=== PATIENT | female | born 1950 | race Caucasian/White ===

== ENCOUNTER 2017-08-22 23:37 | Inpatient (IN) | payer MEDICARE, MEDICAID ==
[~2017-08-22] VITALS: Ht 167.6 cm; Wt 72.7 kg
[~2017-08-22 23:37] MED LIST: ATOR20TA66 PO; BACL10TA PO; INSU100V9 SUBCUT; LOSA1TAB36 PO; OMEP20CA10 PO; OXYB5TAB11 PO
[2017-08-23] MEDS ORDERED: normal saline 1000ML IV soln IVB ONE
[2017-08-23 00:58] LABS: BASOPHILS % (AUTO) 0.4 % (0-1); EOSINOPHILS % (AUTO) 0.3 % (0-6); HEMATOCRIT 28.5 % (35.0-45.0); HEMOGLOBIN 9.8 g/dl (12.0-16.0); LYMPHOCYTES # (AUTO) 1.9 X10'3 (1.1-4.8); LYMPHOCYTES % (AUTO) 14.9 % (21-51); MEAN CORPUSCULAR HEMOGLOBIN 30.5 PG (27.0-31.0); MEAN CORPUSCULAR HGB CONC 34.4 % (33.0-36.5); MEAN CORPUSCULAR VOLUME 88.6 FL (78-98); MEAN PLATELET VOLUME 8.9 FL (7.4-10.4); MONOCYTES % (AUTO) 8.3 % (2-12); NEUTROPHILS # (AUTO) 9.5 X10'3 (1.8-7.7); NEUTROPHILS % (AUTO) 76.1 % (42-75); PLATELET COUNT 164 X10'3 (140-440); RED BLOOD COUNT 3.22 X10'6 (4.20-5.60); RED CELL DISTRIBUTION WIDTH 12.8 % (11.5-14.5); WHITE BLOOD COUNT 12.4 X10'3 (4.5-11.0)
[2017-08-23 01:12] LABS: ALANINE AMINOTRANSFERASE 15 U/L (12-78); ALBUMIN 3.1 G/DL (3.4-5.0); ALBUMIN/GLOBULIN RATIO 0.9 (1.1-1.5); ALKALINE PHOSPHATASE 75 IU/L (46-116); ANION GAP 12 (8-16); ASPARTATE AMINO TRANSFERASE 21 U/L (10-37); BILIRUBIN,TOTAL 0.4 MG/DL (0.1-1.0); CALCIUM 8.7 MG/DL (8.5-10.1); CHLORIDE 117 MMOL/L (99-107); CREATININE 3.45 MG/DL (0.40-0.90); GLUCOSE 152 MG/DL (70-104); POTASSIUM 3.5 MMOL/L (3.5-5.1); SODIUM 152 MMOL/L (135-145); TOTAL CARBON DIOXIDE 23.1 MMOL/L (24-32); TOTAL PROTEIN 6.5 G/DL (6.4-8.2); eGFR 13 ML/MIN
[2017-08-23] MEDS ORDERED: magnesium hydroxide 30ml (MOM) UD suspension PO PRN (01:15)
[2017-08-23] MEDS ORDERED: potassium Cl 20 mEq SR tablet PO PRN (01:15)
[2017-08-23] MEDS ORDERED: magnesium 2GM in 50ml NS 50 ML IV PRN (01:15)
[2017-08-23] MEDS ORDERED: magnesium 4gm in 100ml NS 100 ML IV PRN (01:15)
[2017-08-23] MEDS ORDERED: ipratropium/albuterol 3ml nebule NEB PRN (01:15)
[2017-08-23] MEDS ORDERED: ondansetron/PF 4mg/2ml inj IV PRN (01:15)
[2017-08-23] MEDS ORDERED: acetaminophen 325mg tablet PO PRN (01:15)
[2017-08-23] MEDS ORDERED: potassium Cl 40MEQ/NS 500ml 500 ML IV PRN ×2 (01:15)
[2017-08-23 01:21] LABS: BLOOD UREA NITROGEN 65 MG/DL (7-18); BUN/CREATININE RATIO 18.8 (6.6-38.0)
[2017-08-23] MEDS ORDERED: MESSAGE TO PHARMACY PO ONE (01:25)
[2017-08-23] MEDS ORDERED: dextrose 50%-water 50ml dispensing syringe IV PRN ×2 (01:25)
[2017-08-23] MEDS ORDERED: dextrose ORAL solution 15 GM/59 ML bottle PO PRN ×2 (01:25)
[2017-08-23] MEDS ORDERED: glucagon, human recombinant 1mg kit SUBCUT PRN (01:25)
[2017-08-23 01:42] LABS: CHOL/HDL RATIO 3.5 (0.00-4.99); CHOLESTEROL 156 MG/DL (0-200); HDL CHOLESTEROL 44 MG/DL (35-60); LDL CHOLESTEROL 87 MG/DL (50-100); TRIGLYCERIDES 118 MG/DL (20-135)
[2017-08-23 01:47] LABS: CLARITY,URINE SLIGHTLY CLOUDY (Clear); COLOR,URINE YELLOW (Yellow); GLUCOSE, URINE 100 mg/dl (Neg); KETONES,URINE NEGATIVE (Neg); LEUKOCYTE ESTERASE ,URINE TRACE (Neg); NITRITES, URINE POSITIVE (Neg); OCCULT BLOOD,URINE LARGE (Neg); PROTEIN,URINE >=300 mg/dl (Neg); UROBILINOGEN,URINE 0.2 E.U/dL (0.2-1.0)
[2017-08-23 01:48] LABS: UA COLLECTION TYPE FOLEY CATH
[2017-08-23 01:49] LABS: HEMOGLOBIN A1C 6.7 % (4.5-6.2)
[2017-08-23 02:01] LABS: BACTERIA,URINE 2+ /HPF (Neg); SQUAMOUS EPITHELIAL CELL,UR FEW /LPF (FEW); WBC,URINE 20-30 /HPF (0-4)
[2017-08-23 03:00] VITALS: BP 136/96
[2017-08-23] MEDS ORDERED: LINA5TAB4 (03:07)
[2017-08-23] MEDS ORDERED: CHOL2000 (03:07)
[2017-08-23] MEDS ORDERED: SIMV20TA5 PO (03:07)
[2017-08-23] MEDS ORDERED: DILT180C53 PO (03:07)
[2017-08-23] MEDS ORDERED: [UNRECOGNIZED DRUG - CODE] (03:07)
[2017-08-23] MEDS ORDERED: BACL10TA2 (03:07)
[2017-08-23] MEDS ORDERED: ASPI-1130 (03:07)
[2017-08-23] MEDS ORDERED: IRBE300T19 (03:07)
[2017-08-23] MEDS ORDERED: NICO-630 (03:07)
[2017-08-23] MEDS ORDERED: IRBE150T27 PO (03:07)
[2017-08-23] MEDS ORDERED: ONETOUCH (03:07)
[2017-08-23] MEDS ORDERED: INSU100I31 (03:07)
[2017-08-23] MEDS ORDERED: CHLO25TA3 (03:07)
[2017-08-23] MEDS: normal saline 1000ml 1,000 ML IV SCH ×3 (03:19→21:11)
[2017-08-23] MEDS: CefTRIAXone/D5W-Rocephin 1gm 50 ML IV SCH ×2 (03:19→21:00)
[2017-08-23 06:00] VITALS: BP 174/73
[2017-08-23] MEDS: K and/or MAG REPLACEMENT MC SCH (07:12)
[2017-08-23 08:17] LABS: ANION GAP 13 (8-16); BLOOD UREA NITROGEN 59 MG/DL (7-18); CALCIUM 8.8 MG/DL (8.5-10.1); CHLORIDE 114 MMOL/L (99-107); CREATININE 3.28 MG/DL (0.40-0.90); GLUCOSE 202 MG/DL (70-104); POTASSIUM 3.5 MMOL/L (3.5-5.1); SODIUM 149 MMOL/L (135-145); TOTAL CARBON DIOXIDE 22.1 MMOL/L (24-32); eGFR 14 ML/MIN
[2017-08-23 08:18] LABS: ALANINE AMINOTRANSFERASE 18 U/L (12-78); ALBUMIN 3.2 G/DL (3.4-5.0); ALBUMIN/GLOBULIN RATIO 0.9 (1.1-1.5); ALKALINE PHOSPHATASE 80 IU/L (46-116); ASPARTATE AMINO TRANSFERASE 25 U/L (10-37); BILIRUBIN,TOTAL 0.3 MG/DL (0.1-1.0); TOTAL PROTEIN 6.9 G/DL (6.4-8.2)
[2017-08-23] MEDS: lactobacillus rhamnosus 10,000 MMU CELLS/CAPSULE PO SCH ×2 (08:32→20:48)
[2017-08-23] MEDS: nicotine 21mg patch - 24 hr TD SCH (08:34)
[2017-08-23 11:00] VITALS: BP 138/74
[2017-08-23] MEDS: insulin Lispro (HumaLOG) vial - multi-dose SQ SCH ×2 (14:25→19:06)
[2017-08-23 20:00] VITALS: BP 145/68
[2017-08-23] MEDS: mag hydrox/Alum hydrox/simeth 30ml oral suspension PO PRN (21:33)
[2017-08-23] MEDS: insulin glargine (Lantus) pen - multi-dose SQ SCH (21:33)
[2017-08-24] VITALS: BP 168/64
[2017-08-24] MEDS: normal saline 1000ml 1,000 ML IV SCH ×2 (05:36→14:49)
[2017-08-24 06:32] LABS: ALANINE AMINOTRANSFERASE 20 U/L (12-78); ALBUMIN 2.8 G/DL (3.4-5.0); ALBUMIN/GLOBULIN RATIO 0.8 (1.1-1.5); ALKALINE PHOSPHATASE 83 IU/L (46-116); ANION GAP 12 (8-16); ASPARTATE AMINO TRANSFERASE 24 U/L (10-37); BILIRUBIN,TOTAL 0.3 MG/DL (0.1-1.0); BLOOD UREA NITROGEN 56 MG/DL (7-18); BUN/CREATININE RATIO 17.8 (6.6-38.0); CALCIUM 7.9 MG/DL (8.5-10.1); CHLORIDE 111 MMOL/L (99-107); CREATININE 3.15 MG/DL (0.40-0.90); GLUCOSE 138 MG/DL (70-104); MAGNESIUM 1.6 MG/DL (1.5-2.4); POTASSIUM 3.4 MMOL/L (3.5-5.1); SODIUM 145 MMOL/L (135-145); TOTAL CARBON DIOXIDE 21.6 MMOL/L (24-32); TOTAL PROTEIN 6.2 G/DL (6.4-8.2); eGFR 15 ML/MIN
[2017-08-24 06:58] LABS: BASOPHILS % (AUTO) 0.3 % (0-1); EOSINOPHILS # (AUTO) 0.7 X10'3 (0-0.9); EOSINOPHILS % (AUTO) 6.4 % (0-6); HEMATOCRIT 27.8 % (35.0-45.0); HEMOGLOBIN 9.7 g/dl (12.0-16.0); LYMPHOCYTES # (AUTO) 2.3 X10'3 (1.1-4.8); LYMPHOCYTES % (AUTO) 20.3 % (21-51); MEAN CORPUSCULAR HEMOGLOBIN 31.1 PG (27.0-31.0); MEAN CORPUSCULAR HGB CONC 34.9 % (33.0-36.5); MEAN CORPUSCULAR VOLUME 89.1 FL (78-98); MEAN PLATELET VOLUME 9.6 FL (7.4-10.4); MONOCYTES # (AUTO) 0.9 X10'3 (0-0.9); MONOCYTES % (AUTO) 7.7 % (2-12); NEUTROPHILS # (AUTO) 7.4 X10'3 (1.8-7.7); NEUTROPHILS % (AUTO) 65.3 % (42-75); PLATELET COUNT 166 X10'3 (140-440); RED BLOOD COUNT 3.12 X10'6 (4.20-5.60); WHITE BLOOD COUNT 11.3 X10'3 (4.5-11.0)
[2017-08-24 07:00] VITALS: BP 142/59
[2017-08-24] MEDS: K and/or MAG REPLACEMENT MC SCH (08:00)
[2017-08-24] MEDS: lactobacillus rhamnosus 10,000 MMU CELLS/CAPSULE PO SCH ×2 (08:21→20:00)
[2017-08-24] MEDS: potassium Cl 20 mEq SR tablet PO PRN ×3 (08:22→17:39)
[2017-08-24] MEDS: nicotine 21mg patch - 24 hr TD SCH (08:24)
[2017-08-24] MEDS: insulin Lispro (HumaLOG) vial - multi-dose SQ SCH ×2 (09:37→14:51)
[2017-08-24 11:54] VITALS: BP 169/77
[2017-08-24] MEDS ORDERED: chlorthalidone 25mg tablet PO ONE (12:10)
[2017-08-24] MEDS ORDERED: diltiazem CD 180mg cap (once-daily) PO SCH (14:00)
[2017-08-24] MEDS: losartan 50mg tablet PO SCH (14:57)
[2017-08-24 15:24] VITALS: BP 188/83
[2017-08-24] MEDS ORDERED: hydrALAZINE 20mg/ml inj. IV ONE (15:25)
[2017-08-24] MEDS ORDERED: hydrALAZINE 20mg/ml inj. IV PRN (15:25)
[2017-08-24] MEDS: mag hydrox/Alum hydrox/simeth 30ml oral suspension PO PRN (15:57)
[2017-08-24 17:16] VITALS: BP 153/70
[2017-08-24] MEDS: sodium bicarbonate (8.4%) inj. 50 MEQ in sodium chloride 0.45% 1,000 ML IV SCH (18:01)
[2017-08-24 19:44] LABS: TOTAL PROTEIN,URINE RANDOM 168.9 MG/DL
[2017-08-24 20:00] VITALS: BP 115/63
[2017-08-24] MEDS: atorvastatin 10mg tablet PO SCH (21:40)
[2017-08-24] MEDS: heparin, porcine 5000 units/ml vial SQ SCH (21:40)
[2017-08-24] MEDS: CefTRIAXone/D5W-Rocephin 1gm 50 ML IV SCH (21:41)
[2017-08-24] MEDS: insulin glargine (Lantus) pen - multi-dose SQ SCH (21:44)
[2017-08-25] VITALS (9 sets, daily range): BP systolic 156–190; BP diastolic 58–77
[2017-08-25] MEDS: sodium bicarbonate (8.4%) inj. 50 MEQ in sodium chloride 0.45% 1,000 ML IV SCH ×5 (05:19→20:23)
[2017-08-25 06:03] LABS: BASOPHILS % (AUTO) 0.3 % (0-1); EOSINOPHILS % (AUTO) 10.2 % (0-6); HEMATOCRIT 28.1 % (35.0-45.0); HEMOGLOBIN 9.6 g/dl (12.0-16.0); LYMPHOCYTES # (AUTO) 1.7 X10'3 (1.1-4.8); LYMPHOCYTES % (AUTO) 18.1 % (21-51); MEAN CORPUSCULAR HEMOGLOBIN 30.6 PG (27.0-31.0); MEAN PLATELET VOLUME 9.5 FL (7.4-10.4); MONOCYTES # (AUTO) 0.7 X10'3 (0-0.9); MONOCYTES % (AUTO) 7.4 % (2-12); NEUTROPHILS # (AUTO) 6.2 X10'3 (1.8-7.7); PLATELET COUNT 163 X10'3 (140-440); RED BLOOD COUNT 3.12 X10'6 (4.20-5.60); RED CELL DISTRIBUTION WIDTH 13.5 % (11.5-14.5); WHITE BLOOD COUNT 9.6 X10'3 (4.5-11.0)
[2017-08-25 06:45] LABS: ALANINE AMINOTRANSFERASE 21 U/L (12-78); ALBUMIN 2.7 G/DL (3.4-5.0); ALBUMIN/GLOBULIN RATIO 0.8 (1.1-1.5); ALKALINE PHOSPHATASE 73 IU/L (46-116); ANION GAP 11 (8-16); ASPARTATE AMINO TRANSFERASE 23 U/L (10-37); BILIRUBIN,TOTAL 0.3 MG/DL (0.1-1.0); BLOOD UREA NITROGEN 50 MG/DL (7-18); BUN/CREATININE RATIO 18.4 (6.6-38.0); CHLORIDE 112 MMOL/L (99-107); CREATININE 2.72 MG/DL (0.40-0.90); GLUCOSE 114 MG/DL (70-104); MAGNESIUM 1.8 MG/DL (1.5-2.4); POTASSIUM 4.4 MMOL/L (3.5-5.1); SODIUM 145 MMOL/L (135-145); TOTAL CARBON DIOXIDE 21.6 MMOL/L (24-32); eGFR 17 ML/MIN
[2017-08-25] MEDS: K and/or MAG REPLACEMENT MC SCH (08:00)
[2017-08-25] MEDS ORDERED: diltiazem CD 180mg cap (once-daily) PO SCH (08:00)
[2017-08-25] MEDS: insulin Lispro (HumaLOG) vial - multi-dose SQ SCH ×4 (09:01→21:33)
[2017-08-25] MEDS: losartan 50mg tablet PO SCH (09:05)
[2017-08-25] MEDS: diltiazem CD 120mg capsule (once-daily) PO SCH (09:05)
[2017-08-25] MEDS: pantoprazole 40mg Tablet.DR PO SCH (09:05)
[2017-08-25] MEDS: nicotine 21mg patch - 24 hr TD SCH (09:06)
[2017-08-25] MEDS: chlorthalidone 25mg tablet PO SCH (09:06)
[2017-08-25] MEDS: lactobacillus rhamnosus 10,000 MMU CELLS/CAPSULE PO SCH ×2 (09:06→19:57)
[2017-08-25] MEDS: aspirin 81mg tablet.DR PO SCH (09:06)
[2017-08-25] MEDS: heparin, porcine 5000 units/ml vial SQ SCH ×2 (09:07→19:57)
[2017-08-25] MEDS: carvedilol 6.25mg tablet PO SCH (19:57)
[2017-08-25] MEDS: insulin glargine (Lantus) pen - multi-dose SQ SCH (21:34)
[2017-08-25] MEDS: CefTRIAXone/D5W-Rocephin 1gm 50 ML IV SCH (21:35)
[2017-08-25] MEDS: atorvastatin 10mg tablet PO SCH (21:35)
[2017-08-26] MEDS ORDERED: quetiapine 100mg tablet PO SCH ×2 (02:00→18:00)
[2017-08-26] MEDS: QUEtiapine 25mg tablet PO SCH ×3 (02:45→18:59)
[2017-08-26 05:58] LABS: BASOPHILS % (AUTO) 0.3 % (0-1); EOSINOPHILS # (AUTO) 0.8 X10'3 (0-0.9); EOSINOPHILS % (AUTO) 10.5 % (0-6); HEMATOCRIT 23.8 % (35.0-45.0); HEMOGLOBIN 8.3 g/dl (12.0-16.0); LYMPHOCYTES # (AUTO) 1.9 X10'3 (1.1-4.8); LYMPHOCYTES % (AUTO) 24.4 % (21-51); MEAN CORPUSCULAR HEMOGLOBIN 30.7 PG (27.0-31.0); MEAN CORPUSCULAR HGB CONC 34.7 % (33.0-36.5); MEAN CORPUSCULAR VOLUME 88.3 FL (78-98); MEAN PLATELET VOLUME 8.8 FL (7.4-10.4); MONOCYTES # (AUTO) 0.6 X10'3 (0-0.9); MONOCYTES % (AUTO) 7.7 % (2-12); NEUTROPHILS # (AUTO) 4.6 X10'3 (1.8-7.7); NEUTROPHILS % (AUTO) 57.1 % (42-75); PLATELET COUNT 127 X10'3 (140-440); RED BLOOD COUNT 2.69 X10'6 (4.20-5.60); RED CELL DISTRIBUTION WIDTH 13.6 % (11.5-14.5)
[2017-08-26 06:35] LABS: ALANINE AMINOTRANSFERASE 18 U/L (12-78); ALBUMIN 2.3 G/DL (3.4-5.0); ALBUMIN/GLOBULIN RATIO 0.8 (1.1-1.5); ALKALINE PHOSPHATASE 64 IU/L (46-116); ANION GAP 8 (8-16); ASPARTATE AMINO TRANSFERASE 18 U/L (10-37); BILIRUBIN,TOTAL 0.3 MG/DL (0.1-1.0); BLOOD UREA NITROGEN 48 MG/DL (7-18); BUN/CREATININE RATIO 17.5 (6.6-38.0); CALCIUM 8.2 MG/DL (8.5-10.1); CHLORIDE 113 MMOL/L (99-107); CREATININE 2.75 MG/DL (0.40-0.90); GLUCOSE 117 MG/DL (70-104); MAGNESIUM 1.9 MG/DL (1.5-2.4); POTASSIUM 4.4 MMOL/L (3.5-5.1); SODIUM 146 MMOL/L (135-145); TOTAL CARBON DIOXIDE 24.8 MMOL/L (24-32); TOTAL PROTEIN 5.3 G/DL (6.4-8.2); eGFR 17 ML/MIN
[2017-08-26 07:17] VITALS: BP 147/59
[2017-08-26] MEDS: K and/or MAG REPLACEMENT MC SCH (08:00)
[2017-08-26 08:50] LABS: HIV ANTIBODY 1&2 RAPID NON-REACTIVE (Neg)
[2017-08-26] MEDS: diltiazem CD 120mg capsule (once-daily) PO SCH (09:46)
[2017-08-26] MEDS: carvedilol 6.25mg tablet PO SCH ×2 (09:47→20:27)
[2017-08-26] MEDS: pantoprazole 40mg Tablet.DR PO SCH (09:47)
[2017-08-26] MEDS: losartan 50mg tablet PO SCH (09:47)
[2017-08-26] MEDS: lactobacillus rhamnosus 10,000 MMU CELLS/CAPSULE PO SCH ×2 (09:47→20:27)
[2017-08-26] MEDS: chlorthalidone 25mg tablet PO SCH (09:47)
[2017-08-26] MEDS: aspirin 81mg tablet.DR PO SCH (09:48)
[2017-08-26] MEDS: nicotine 21mg patch - 24 hr TD SCH (09:48)
[2017-08-26] MEDS: calcium carbonate 500mg chew tablet PO SCH ×3 (09:48→17:17)
[2017-08-26] MEDS: heparin, porcine 5000 units/ml vial SQ SCH ×2 (09:49→20:28)
[2017-08-26] MEDS: sodium bicarbonate (8.4%) inj. 50 MEQ in sodium chloride 0.45% 1,000 ML IV SCH (09:51)
[2017-08-26] MEDS: insulin Lispro (HumaLOG) vial - multi-dose SQ SCH ×2 (10:10→14:17)
[2017-08-26 11:30] VITALS: BP 139/94
[2017-08-26] MEDS: sodium chloride 0.45% 1,000 ML IV SCH (17:08)
[2017-08-26 20:00] VITALS: BP 123/76
[2017-08-26] MEDS: atorvastatin 10mg tablet PO SCH (20:28)
[2017-08-26] MEDS: CefTRIAXone/D5W-Rocephin 1gm 50 ML IV SCH (20:29)
[2017-08-26] MEDS: insulin glargine (Lantus) pen - multi-dose SQ SCH (22:01)
[2017-08-27] VITALS: BP 128/71
[2017-08-27] MEDS: sodium chloride 0.45% 1,000 ML IV SCH ×2 (05:29→17:22)
[2017-08-27 06:17] LABS: BASOPHILS % (AUTO) 0.1 % (0-1); EOSINOPHILS # (AUTO) 0.9 X10'3 (0-0.9); EOSINOPHILS % (AUTO) 11.3 % (0-6); HEMATOCRIT 23.6 % (35.0-45.0); LYMPHOCYTES # (AUTO) 1.4 X10'3 (1.1-4.8); LYMPHOCYTES % (AUTO) 18.5 % (21-51); MEAN CORPUSCULAR HEMOGLOBIN 30.5 PG (27.0-31.0); MEAN CORPUSCULAR HGB CONC 33.9 % (33.0-36.5); MEAN PLATELET VOLUME 9.6 FL (7.4-10.4); MONOCYTES # (AUTO) 0.7 X10'3 (0-0.9); MONOCYTES % (AUTO) 8.8 % (2-12); NEUTROPHILS # (AUTO) 4.7 X10'3 (1.8-7.7); NEUTROPHILS % (AUTO) 61.3 % (42-75); PLATELET COUNT 128 X10'3 (140-440); RED BLOOD COUNT 2.62 X10'6 (4.20-5.60); RED CELL DISTRIBUTION WIDTH 13.6 % (11.5-14.5); WHITE BLOOD COUNT 7.6 X10'3 (4.5-11.0)
[2017-08-27 06:53] LABS: ALANINE AMINOTRANSFERASE 22 U/L (12-78); ALBUMIN 2.2 G/DL (3.4-5.0); ALBUMIN/GLOBULIN RATIO 0.7 (1.1-1.5); ALKALINE PHOSPHATASE 67 IU/L (46-116); ANION GAP 9 (8-16); ASPARTATE AMINO TRANSFERASE 20 U/L (10-37); BILIRUBIN,TOTAL 0.2 MG/DL (0.1-1.0); BLOOD UREA NITROGEN 47 MG/DL (7-18); BUN/CREATININE RATIO 15.7 (6.6-38.0); CHLORIDE 111 MMOL/L (99-107); GLUCOSE 107 MG/DL (70-104); MAGNESIUM 1.8 MG/DL (1.5-2.4); POTASSIUM 4.5 MMOL/L (3.5-5.1); SODIUM 145 MMOL/L (135-145); TOTAL CARBON DIOXIDE 24.9 MMOL/L (24-32); TOTAL PROTEIN 5.2 G/DL (6.4-8.2); eGFR 16 ML/MIN
[2017-08-27 07:21] VITALS: BP 144/58
[2017-08-27] MEDS: K and/or MAG REPLACEMENT MC SCH (08:00)
[2017-08-27 08:20] LABS: RPR Non Reactive (Non Reactive)
[2017-08-27] MEDS: pantoprazole 40mg Tablet.DR PO SCH (09:19)
[2017-08-27] MEDS: carvedilol 6.25mg tablet PO SCH ×2 (09:19→20:23)
[2017-08-27] MEDS: diltiazem CD 120mg capsule (once-daily) PO SCH (09:20)
[2017-08-27] MEDS: aspirin 81mg tablet.DR PO SCH (09:20)
[2017-08-27] MEDS: chlorthalidone 25mg tablet PO SCH (09:21)
[2017-08-27] MEDS: calcium carbonate 500mg chew tablet PO SCH ×3 (09:21→17:22)
[2017-08-27] MEDS: lactobacillus rhamnosus 10,000 MMU CELLS/CAPSULE PO SCH ×2 (09:21→20:23)
[2017-08-27] MEDS: losartan 50mg tablet PO SCH (09:21)
[2017-08-27] MEDS: insulin Lispro (HumaLOG) vial - multi-dose SQ SCH (09:26)
[2017-08-27] MEDS: nicotine 21mg patch - 24 hr TD SCH (09:33)
[2017-08-27] MEDS: heparin, porcine 5000 units/ml vial SQ SCH ×2 (09:34→20:24)
[2017-08-27 11:00] VITALS: BP 127/49
[2017-08-27 13:17] LABS: HEPATITIS C ANTIBODY <0.1 s/co ratio (0.0-0.9)
[2017-08-27] MEDS: QUEtiapine 25mg tablet PO SCH (17:22)
[2017-08-27 19:00] VITALS: BP 156/73
[2017-08-27] MEDS: atorvastatin 10mg tablet PO SCH (20:23)
[2017-08-27] MEDS: CefTRIAXone/D5W-Rocephin 1gm 50 ML IV SCH (20:24)
[2017-08-27] MEDS: insulin glargine (Lantus) pen - multi-dose SQ SCH (21:44)
[2017-08-27 23:00] VITALS: BP 160/66
[2017-08-28] MEDS: sodium chloride 0.45% 1,000 ML IV SCH ×2 (06:03→19:57)
[2017-08-28 06:04] LABS: BASOPHILS % (AUTO) 0.1 % (0-1); EOSINOPHILS # (AUTO) 0.8 X10'3 (0-0.9); HEMATOCRIT 26.5 % (35.0-45.0); LYMPHOCYTES # (AUTO) 1.6 X10'3 (1.1-4.8); LYMPHOCYTES % (AUTO) 20.1 % (21-51); MEAN CORPUSCULAR HEMOGLOBIN 30.6 PG (27.0-31.0); MEAN PLATELET VOLUME 9.6 FL (7.4-10.4); MONOCYTES # (AUTO) 0.6 X10'3 (0-0.9); MONOCYTES % (AUTO) 7.4 % (2-12); NEUTROPHILS # (AUTO) 4.8 X10'3 (1.8-7.7); NEUTROPHILS % (AUTO) 62.4 % (42-75); PLATELET COUNT 148 X10'3 (140-440); RED BLOOD COUNT 2.95 X10'6 (4.20-5.60); RED CELL DISTRIBUTION WIDTH 13.7 % (11.5-14.5); WHITE BLOOD COUNT 7.7 X10'3 (4.5-11.0)
[2017-08-28 06:35] LABS: ALANINE AMINOTRANSFERASE 28 U/L (12-78); ALBUMIN 2.5 G/DL (3.4-5.0); ALBUMIN/GLOBULIN RATIO 0.7 (1.1-1.5); ALKALINE PHOSPHATASE 76 IU/L (46-116); ANION GAP 11 (8-16); ASPARTATE AMINO TRANSFERASE 21 U/L (10-37); BILIRUBIN,TOTAL 0.3 MG/DL (0.1-1.0); BLOOD UREA NITROGEN 45 MG/DL (7-18); BUN/CREATININE RATIO 14.2 (6.6-38.0); CALCIUM 8.6 MG/DL (8.5-10.1); CHLORIDE 110 MMOL/L (99-107); CREATININE 3.17 MG/DL (0.40-0.90); GLUCOSE 128 MG/DL (70-104); POTASSIUM 4.2 MMOL/L (3.5-5.1); SODIUM 146 MMOL/L (135-145); TOTAL CARBON DIOXIDE 24.9 MMOL/L (24-32); eGFR 15 ML/MIN
[2017-08-28] MEDS: K and/or MAG REPLACEMENT MC SCH (08:00)
[2017-08-28] MEDS: calcium carbonate 500mg chew tablet PO SCH ×3 (08:05→17:30)
[2017-08-28] MEDS: lactobacillus rhamnosus 10,000 MMU CELLS/CAPSULE PO SCH ×2 (08:05→21:35)
[2017-08-28] MEDS: diltiazem CD 120mg capsule (once-daily) PO SCH (08:05)
[2017-08-28] MEDS: aspirin 81mg tablet.DR PO SCH (08:05)
[2017-08-28] MEDS: chlorthalidone 25mg tablet PO SCH (08:05)
[2017-08-28] MEDS: pantoprazole 40mg Tablet.DR PO SCH (08:05)
[2017-08-28] MEDS: carvedilol 6.25mg tablet PO SCH ×2 (08:05→21:35)
[2017-08-28] MEDS: losartan 50mg tablet PO SCH (08:06)
[2017-08-28] MEDS: nicotine 21mg patch - 24 hr TD SCH (08:06)
[2017-08-28] MEDS: heparin, porcine 5000 units/ml vial SQ SCH ×2 (08:08→21:39)
[2017-08-28 10:11] VITALS: BP 161/75
[2017-08-28 11:52] VITALS: BP 160/69
[2017-08-28] MEDS: insulin Lispro (HumaLOG) vial - multi-dose SQ SCH ×2 (13:50→20:00)
[2017-08-28] MEDS: QUEtiapine 25mg tablet PO SCH (19:56)
[2017-08-28 20:00] VITALS: BP 139/64
[2017-08-28] MEDS: atorvastatin 10mg tablet PO SCH (21:34)
[2017-08-28] MEDS: minoxidil 2.5mg tablet PO SCH (21:37)
[2017-08-28] MEDS: CefTRIAXone/D5W-Rocephin 1gm 50 ML IV SCH (21:38)
[2017-08-28] MEDS: insulin glargine (Lantus) pen - multi-dose SQ SCH (21:44)
[2017-08-29] VITALS: BP 133/59
[2017-08-29 06:18] LABS: MAGNESIUM 1.8 MG/DL (1.5-2.4)
[2017-08-29] MEDS: K and/or MAG REPLACEMENT MC SCH (07:50)
[2017-08-29] MEDS: nicotine 21mg patch - 24 hr TD SCH (07:53)
[2017-08-29] MEDS: pantoprazole 40mg Tablet.DR PO SCH (07:54)
[2017-08-29] MEDS: calcium carbonate 500mg chew tablet PO SCH ×3 (07:54→18:52)
[2017-08-29] MEDS: diltiazem CD 120mg capsule (once-daily) PO SCH (07:54)
[2017-08-29] MEDS: lactobacillus rhamnosus 10,000 MMU CELLS/CAPSULE PO SCH ×2 (07:54→21:16)
[2017-08-29] MEDS: aspirin 81mg tablet.DR PO SCH (07:54)
[2017-08-29] MEDS: carvedilol 6.25mg tablet PO SCH ×2 (07:54→21:18)
[2017-08-29] MEDS: heparin, porcine 5000 units/ml vial SQ SCH ×2 (07:55→21:16)
[2017-08-29] MEDS: insulin Lispro (HumaLOG) vial - multi-dose SQ SCH ×3 (08:04→18:56)
[2017-08-29] MEDS: minoxidil 2.5mg tablet PO SCH ×2 (09:08→21:17)
[2017-08-29 09:17] VITALS: BP 135/58
[2017-08-29 10:05] LABS: ALBUMIN 2.2 G/DL (3.4-5.0); ANION GAP 9 (8-16); BLOOD UREA NITROGEN 48 MG/DL (7-18); BUN/CREATININE RATIO 14.8 (6.6-38.0); CALCIUM 8.3 MG/DL (8.5-10.1); CHLORIDE 111 MMOL/L (99-107); CREATININE 3.24 MG/DL (0.40-0.90); GLUCOSE 114 MG/DL (70-104); POTASSIUM 4.6 MMOL/L (3.5-5.1); SODIUM 145 MMOL/L (135-145); eGFR 14 ML/MIN
[2017-08-29 11:43] VITALS: BP 116/63
[2017-08-29] MEDS: QUEtiapine 25mg tablet PO SCH (18:52)
[2017-08-29 19:00] VITALS: BP 141/52
[2017-08-29] MEDS: CefTRIAXone/D5W-Rocephin 1gm 50 ML IV SCH (21:16)
[2017-08-29] MEDS: atorvastatin 10mg tablet PO SCH (21:16)
[2017-08-29] MEDS: insulin glargine (Lantus) pen - multi-dose SQ SCH (21:22)
[2017-08-29 23:30] VITALS: BP 101/52
[2017-08-30 06:50] LABS: RHEUM FACTOR QUAL REFLEX TITER NEGATIVE (Neg)
[2017-08-30 06:54] LABS: ALBUMIN 2.3 G/DL (3.4-5.0); ANION GAP 9 (8-16); BLOOD UREA NITROGEN 53 MG/DL (7-18); BUN/CREATININE RATIO 15.9 (6.6-38.0); CALCIUM 8.6 MG/DL (8.5-10.1); CHLORIDE 110 MMOL/L (99-107); CREATININE 3.33 MG/DL (0.40-0.90); GLUCOSE 120 MG/DL (70-104); MAGNESIUM 1.9 MG/DL (1.5-2.4); POTASSIUM 4.3 MMOL/L (3.5-5.1); SODIUM 143 MMOL/L (135-145); TOTAL CARBON DIOXIDE 23.9 MMOL/L (24-32); eGFR 14 ML/MIN
[2017-08-30 07:00] VITALS: BP 127/52
[2017-08-30] MEDS: K and/or MAG REPLACEMENT MC SCH (08:00)
[2017-08-30] MEDS: minoxidil 2.5mg tablet PO SCH ×2 (08:49→22:26)
[2017-08-30] MEDS: calcium carbonate 500mg chew tablet PO SCH ×3 (08:49→17:01)
[2017-08-30] MEDS: lactobacillus rhamnosus 10,000 MMU CELLS/CAPSULE PO SCH ×2 (08:49→22:28)
[2017-08-30] MEDS: carvedilol 6.25mg tablet PO SCH ×2 (08:50→22:27)
[2017-08-30] MEDS: diltiazem CD 120mg capsule (once-daily) PO SCH (08:50)
[2017-08-30] MEDS: aspirin 81mg tablet.DR PO SCH (08:50)
[2017-08-30] MEDS: nicotine 21mg patch - 24 hr TD SCH (08:50)
[2017-08-30] MEDS: heparin, porcine 5000 units/ml vial SQ SCH ×2 (08:51→22:29)
[2017-08-30] MEDS: insulin Lispro (HumaLOG) vial - multi-dose SQ SCH ×2 (09:01→19:01)
[2017-08-30] MEDS: pantoprazole 40mg Tablet.DR PO SCH (09:05)
[2017-08-30 11:35] VITALS: BP 122/43
[2017-08-30] MEDS: QUEtiapine 25mg tablet PO SCH (17:01)
[2017-08-30 18:00] VITALS: BP 126/75
[2017-08-30] MEDS: atorvastatin 10mg tablet PO SCH (22:28)
[2017-08-30] MEDS: insulin glargine (Lantus) pen - multi-dose SQ SCH (22:34)
[2017-08-30 23:00] VITALS: BP 154/48
[2017-08-31 06:13] LABS: ALBUMIN 2.1 G/DL (3.4-5.0); ANION GAP 9 (8-16); BLOOD UREA NITROGEN 61 MG/DL (7-18); BUN/CREATININE RATIO 15.3 (6.6-38.0); CALCIUM 8.5 MG/DL (8.5-10.1); CHLORIDE 109 MMOL/L (99-107); CREATININE 3.99 MG/DL (0.40-0.90); GLUCOSE 140 MG/DL (70-104); POTASSIUM 4.9 MMOL/L (3.5-5.1); SODIUM 142 MMOL/L (135-145); TOTAL CARBON DIOXIDE 23.6 MMOL/L (24-32); eGFR 11 ML/MIN
[2017-08-31] MEDS: carvedilol 6.25mg tablet PO SCH ×2 (07:29→19:45)
[2017-08-31] MEDS: pantoprazole 40mg Tablet.DR PO SCH (07:29)
[2017-08-31] MEDS: diltiazem CD 120mg capsule (once-daily) PO SCH (07:29)
[2017-08-31] MEDS: minoxidil 2.5mg tablet PO SCH ×2 (07:30→22:11)
[2017-08-31] MEDS: aspirin 81mg tablet.DR PO SCH (07:30)
[2017-08-31] MEDS: lactobacillus rhamnosus 10,000 MMU CELLS/CAPSULE PO SCH ×2 (07:30→19:44)
[2017-08-31] MEDS: heparin, porcine 5000 units/ml vial SQ SCH ×2 (07:31→19:44)
[2017-08-31] MEDS: nicotine 21mg patch - 24 hr TD SCH (07:32)
[2017-08-31 08:00] VITALS: BP 141/50
[2017-08-31] MEDS: K and/or MAG REPLACEMENT MC SCH (08:00)
[2017-08-31 08:16] LABS: RPR Non Reactive (Non Reactive)
[2017-08-31] MEDS: calcium carbonate 500mg chew tablet PO SCH ×3 (08:30→17:40)
[2017-08-31] MEDS: insulin Lispro (HumaLOG) vial - multi-dose SQ SCH ×3 (09:53→19:43)
[2017-08-31 11:00] VITALS: BP 123/43
[2017-08-31 11:17] LABS: HBSAG SCREEN Negative (Negative); HEPATITIS C ANTIBODY <0.1 s/co ratio (0.0-0.9)
[2017-08-31 13:25] LABS: A/G RATIO 0.9 (0.7-1.7); ALBUMIN 2.1 g/dL (2.9-4.4); BETA GLOBULIN 0.6 g/dL (0.7-1.3); GAMMA GLOBULIN 0.7 g/dL (0.4-1.8); GLOBULIN, TOTAL 2.3 g/dL (2.2-3.9); M-SPIKE Not Observed g/dL (Not Observed); PROTEIN, TOTAL, SERUM 4.4 g/dL (6.0-8.5)
[2017-08-31 13:30] LABS: CLARITY,URINE CLEAR (Clear); COLOR,URINE YELLOW (Yellow); GLUCOSE, URINE NEGATIVE (Neg); KETONES,URINE NEGATIVE (Neg); LEUKOCYTE ESTERASE ,URINE NEGATIVE (Neg); NITRITES, URINE NEGATIVE (Neg); OCCULT BLOOD,URINE SMALL (Neg); PROTEIN,URINE 100 mg/dl (Neg); UROBILINOGEN,URINE 0.2 E.U/dL (0.2-1.0)
[2017-08-31 13:44] LABS: UA COLLECTION TYPE NON-SPECIFIED
[2017-08-31 13:51] LABS: BACTERIA,URINE 1+ /HPF (Neg); SQUAMOUS EPITHELIAL CELL,UR MANY /LPF (FEW); WBC,URINE 0-4 /HPF (0-4)
[2017-08-31 13:58] LABS: TOTAL PROTEIN,URINE RANDOM 82.6 MG/DL
[2017-08-31 14:18] LABS: UA EOSINOPHILS NO EOS /HPF
[2017-08-31 17:11] LABS: ANTINUCLEAR ANTIBODIES Negative (Negative)
[2017-08-31] MEDS: sucralfate 1gm/10ml UD suspension PO SCH ×2 (17:39→21:42)
[2017-08-31] MEDS: QUEtiapine 25mg tablet PO SCH (17:40)
[2017-08-31 19:30] VITALS: BP 119/39
[2017-08-31] MEDS: insulin glargine (Lantus) pen - multi-dose SQ SCH (21:49)
[2017-08-31 22:08] VITALS: BP 133/47
[2017-08-31] MEDS: atorvastatin 10mg tablet PO SCH (22:16)
[2017-09-01 06:46] LABS: ALBUMIN 2.2 G/DL (3.4-5.0); ANION GAP 10 (8-16); BLOOD UREA NITROGEN 67 MG/DL (7-18); BUN/CREATININE RATIO 16.6 (6.6-38.0); CALCIUM 8.4 MG/DL (8.5-10.1); CHLORIDE 108 MMOL/L (99-107); CREATININE 4.03 MG/DL (0.40-0.90); GLUCOSE 97 MG/DL (70-104); POTASSIUM 4.5 MMOL/L (3.5-5.1); SODIUM 141 MMOL/L (135-145); TOTAL CARBON DIOXIDE 22.8 MMOL/L (24-32); eGFR 11 ML/MIN
[2017-09-01 07:00] VITALS: BP 119/40
[2017-09-01] MEDS: sucralfate 1gm/10ml UD suspension PO SCH ×4 (07:00→21:00)
[2017-09-01 07:16] LABS: COMPLEMENT C3, SERUM 77 mg/dL (82-167); COMPLEMENT C4, SERUM 25 mg/dL (14-44)
[2017-09-01] MEDS: carvedilol 6.25mg tablet PO SCH ×2 (08:00→19:21)
[2017-09-01] MEDS: K and/or MAG REPLACEMENT MC SCH (08:00)
[2017-09-01] MEDS: calcium carbonate 500mg chew tablet PO SCH ×3 (08:16→17:30)
[2017-09-01] MEDS: diltiazem CD 120mg capsule (once-daily) PO SCH (08:16)
[2017-09-01] MEDS: aspirin 81mg tablet.DR PO SCH (08:16)
[2017-09-01] MEDS: lactobacillus rhamnosus 10,000 MMU CELLS/CAPSULE PO SCH ×2 (08:16→19:21)
[2017-09-01] MEDS: minoxidil 2.5mg tablet PO SCH ×2 (08:16→19:21)
[2017-09-01] MEDS: heparin, porcine 5000 units/ml vial SQ SCH ×2 (08:17→19:22)
[2017-09-01] MEDS: nicotine 21mg patch - 24 hr TD SCH (08:17)
[2017-09-01 11:21] VITALS: BP 119/43
[2017-09-01] MEDS: insulin Lispro (HumaLOG) vial - multi-dose SQ SCH ×2 (14:03→19:16)
[2017-09-01] MEDS: QUEtiapine 25mg tablet PO SCH (18:03)
[2017-09-01] MEDS: atorvastatin 10mg tablet PO SCH (19:22)
[2017-09-01 19:23] VITALS: BP 132/84
[2017-09-01] MEDS: insulin glargine (Lantus) pen - multi-dose SQ SCH (22:39)
[2017-09-02 00:30] VITALS: BP 115/54
[2017-09-02 05:36] LABS: ALBUMIN, UR 59.2 % (.); ALPHA-1-GLOBULIN,UR 2.8 % (.); ALPHA-2-GLOBULIN,UR 11.3 % (.); BETA GLOBULIN, UR 12.1 % (.); GAMMA GLOBULIN,UR 14.5 % (.); PROTEIN,TOTAL,URINE 79.3 mg/dL (Not Estab.)
[2017-09-02 06:29] LABS: ALBUMIN 2.3 G/DL (3.4-5.0); ANION GAP 10 (8-16); BLOOD UREA NITROGEN 63 MG/DL (7-18); BUN/CREATININE RATIO 15.4 (6.6-38.0); CALCIUM 8.5 MG/DL (8.5-10.1); CHLORIDE 109 MMOL/L (99-107); CREATININE 4.09 MG/DL (0.40-0.90); GLUCOSE 118 MG/DL (70-104); POTASSIUM 5.1 MMOL/L (3.5-5.1); SODIUM 142 MMOL/L (135-145); TOTAL CARBON DIOXIDE 22.7 MMOL/L (24-32); eGFR 11 ML/MIN
[2017-09-02] MEDS: sucralfate 1gm/10ml UD suspension PO SCH ×2 (07:00→11:00)
[2017-09-02] MEDS: K and/or MAG REPLACEMENT MC SCH (07:46)
[2017-09-02] MEDS: aspirin 81mg tablet.DR PO SCH (07:54)
[2017-09-02] MEDS: lactobacillus rhamnosus 10,000 MMU CELLS/CAPSULE PO SCH (07:54)
[2017-09-02] MEDS: calcium carbonate 500mg chew tablet PO SCH ×2 (07:54→12:30)
[2017-09-02] MEDS: diltiazem CD 120mg capsule (once-daily) PO SCH (07:55)
[2017-09-02] MEDS: minoxidil 2.5mg tablet PO SCH (07:55)
[2017-09-02] MEDS: heparin, porcine 5000 units/ml vial SQ SCH (07:55)
[2017-09-02] MEDS: nicotine 21mg patch - 24 hr TD SCH (07:55)
[2017-09-02] MEDS: carvedilol 6.25mg tablet PO SCH (07:59)
[2017-09-02 08:10] VITALS: BP 129/80
[2017-09-02] MEDS: insulin Lispro (HumaLOG) vial - multi-dose SQ SCH (08:58)
[2017-09-02] MEDS ORDERED: CARV6.253 PO (10:21)
[2017-09-02] MEDS ORDERED: MINO2.5T19 PO (10:21)
[2017-09-02] MEDS ORDERED: QUET25TA34 PO (10:21)
[2017-09-02 11:00] VITALS: BP 132/51
[2017-09-02 15:14] LABS: ATYPICAL PANCA <1:20 titer (Neg:<1:20); CYTOPLASMIC (C-ANCA) <1:20 titer (Neg:<1:20); PERINUCLEAR (P-ANCA) <1:20 titer (Neg:<1:20)
== END 2017-09-02 14:10 | disposition home or self-care (01) | DRG 682 ==
LOC: ER 23:38 → CANBEDREQ 08-23 00:19 → ED HOLD 08-23 01:11 → SUR 3N 08-23 02:45 → MED 3N 08-25 21:07
PROVIDERS: ADMIT Family Medicine; ATTEND Family Medicine
DX: N17.0 Acute kidney failure with tubular necrosis (principal); G93.41 Metabolic encephalopathy; E87.0 Hyperosmolality and hypernatremia; E11.21 Type 2 diabetes mellitus with diabetic nephropathy; E87.1 Hypo-osmolality and hyponatremia; N39.0 Urinary tract infection, site not specified; N18.4 Chronic kidney disease, stage 4 (severe); E86.0 Dehydration; I12.9 Hypertensive chronic kidney disease with stage 1 through stage 4 chronic kidney disease, or unspecified chronic kidney disease; B96.20 Unspecified Escherichia coli [E. coli] as the cause of diseases classified elsewhere; E11.22 Type 2 diabetes mellitus with diabetic chronic kidney disease; E78.00 Pure hypercholesterolemia, unspecified; E78.5 Hyperlipidemia, unspecified; F17.210 Nicotine dependence, cigarettes, uncomplicated; F22 Delusional disorders; Z88.2 Allergy status to sulfonamides; Z79.899 Other long term (current) drug therapy; Z79.4 Long term (current) use of insulin; Z87.440 Personal history of urinary (tract) infections; Z80.0 Family history of malignant neoplasm of digestive organs; Z80.3 Family history of malignant neoplasm of breast; Z80.41 Family history of malignant neoplasm of ovary; Z71.6 Tobacco abuse counseling
CPT/HCPCS: 36415; 70450; 74018; 76700; 80048; 80053; 80061; 81001; 82570; 82607; 82746; 82948; 83036; 83605; 83735; 84155; 84156; 84165; 84166; 84300; 84439; 84443; 85025; 85651; 86038; 86160; 86256; 86430; 86592; 86703; 86803; 87040; 87077; 87088; 87186; 87207; 87340; 92616; 93306; 94760; 96360; 97110; 97116; 97161; 97530; 99285; J0360; J0696; J1644; J1815; J7030

== ENCOUNTER 2018-06-07 07:07 | Inpatient (IN) | payer MEDICARE, MEDICAID ==
[~2018-06-07] VITALS: Ht 162.6 cm; Wt 61.2 kg
[~2018-06-07 07:07] MED LIST changes: +ASPI-1130; -ATOR20TA66 PO; -BACL10TA PO; +CARV6.253 PO; +DILT180C53 PO; -INSU100V9 SUBCUT; -LOSA1TAB36 PO; +MINO2.5T19 PO; +NICO-630; -OMEP20CA10 PO; -OXYB5TAB11 PO; +QUET25TA34 PO; +SIMV20TA5 PO; +[UNRECOGNIZED DRUG - CODE]
--- NOTE | 2018-06-07 08:02 | NUR ---
DR SAGASTUME AT BEDSIDE
[2018-06-07] MEDS ORDERED: normal saline 1000ML IV soln IVB ONE (08:10)
[2018-06-07 08:21] LABS: BASOPHILS % (AUTO) 0 % (0-1); EOSINOPHILS # (AUTO) 0.2 X10'3 (0-0.9); EOSINOPHILS % (AUTO) 1.3 % (0-6); HEMATOCRIT 26.2 % (35.0-45.0); HEMOGLOBIN 8.9 g/dl (12.0-16.0); LYMPHOCYTES # (AUTO) 0.9 X10'3 (1.1-4.8); LYMPHOCYTES % (AUTO) 4.9 % (21-51); MEAN CORPUSCULAR HGB CONC 34.1 % (33.0-36.5); MEAN CORPUSCULAR VOLUME 88.1 FL (78-98); MEAN PLATELET VOLUME 8.3 FL (7.4-10.4); MONOCYTES # (AUTO) 0.9 X10'3 (0-0.9); MONOCYTES % (AUTO) 4.8 % (2-12); NEUTROPHILS # (AUTO) 15.8 X10'3 (1.8-7.7); PLATELET COUNT 196 X10'3 (140-440); RED BLOOD COUNT 2.97 X10'6 (4.20-5.60); WHITE BLOOD COUNT 17.8 X10'3 (4.5-11.0)
[2018-06-07 08:33] LABS: PROTHROMBIN TIME 10.5 SECONDS (9.0-12.0)
[2018-06-07 08:34] LABS: ALANINE AMINOTRANSFERASE 15 U/L (12-78); ALBUMIN 2.7 G/DL (3.4-5.0); ALBUMIN/GLOBULIN RATIO 0.7 (1.1-1.5); ALKALINE PHOSPHATASE 82 IU/L (46-116); ANION GAP 15 (8-16); ASPARTATE AMINO TRANSFERASE 17 U/L (10-37); BILIRUBIN,TOTAL 0.4 MG/DL (0.1-1.0); BLOOD UREA NITROGEN 74 MG/DL (7-18); BUN/CREATININE RATIO 11.3 (6.6-38.0); CALCIUM 8.7 MG/DL (8.5-10.1); CHLORIDE 106 MMOL/L (99-107); CREATININE 6.53 MG/DL (0.40-0.90); ETHANOL < 0.010 GM/DL (0.0-0.010); GLUCOSE 207 MG/DL (70-104); LIPASE 104 U/L (73-393); SODIUM 137 MMOL/L (135-145); TOTAL CARBON DIOXIDE 15.8 MMOL/L (24-32); TOTAL PROTEIN 6.4 G/DL (6.4-8.2); eGFR 6 ML/MIN
[2018-06-07 08:35] LABS: POTASSIUM 6.5 MMOL/L (3.5-5.1)
[2018-06-07] MEDS ORDERED: sodium polystyrene sulfonate 15gm/60ml oral suspension PO ONE (08:55)
[2018-06-07] MEDS ORDERED: dextrose 50%-water 50ml dispensing syringe IV ONE (08:55)
[2018-06-07] MEDS ORDERED: insulin regular, human 10 units/0.1 ml syringe IV ONE (08:55)
[2018-06-07] MEDS ORDERED: albuterol 2.5 mg/0.5ml nebule NEB ONE (08:55)
[2018-06-07] MEDS ORDERED: albuterol 2.5 MG/3 ML nebule NEB ONE (09:00)
--- NOTE | 2018-06-07 10:00 | NUR ---
PT ASLEEP NAD
[2018-06-07 10:09] LABS: CLARITY,URINE CLOUDY (Clear); COLOR,URINE YELLOW (Yellow); GLUCOSE, URINE 500 mg/dl (Neg); KETONES,URINE TRACE mg/dl (Neg); LEUKOCYTE ESTERASE ,URINE NEGATIVE (Neg); NITRITES, URINE NEGATIVE (Neg); OCCULT BLOOD,URINE MODERATE (Neg); PROTEIN,URINE >=300 mg/dl (Neg); UROBILINOGEN,URINE 0.2 E.U/dL (0.2-1.0)
[2018-06-07 10:18] LABS: UA COLLECTION TYPE STRAIGHT CATH
[2018-06-07 10:19] LABS: BACTERIA,URINE 3+ /HPF (Neg); SQUAMOUS EPITHELIAL CELL,UR MANY /LPF (FEW)
--- NOTE | 2018-06-07 11:16 | NUR ---
PT PULLED OUT HER IV.
--- NOTE | 2018-06-07 11:36 | NUR ---
PT MOANING AND UNABLE TO VERBALIZE IF SHE HAS PAIN. PT KEEP SAYING "HELP ME MOM"
[2018-06-07] MEDS ORDERED: morphine 4 MG/ML inj SYRINge IV ONE (11:40)
[2018-06-07] MEDS: normal saline 1000ml 1,000 ML IV SCH ×2 (11:54→21:54)
[2018-06-07] MEDS ORDERED: mag hydrox/Alum hydrox/simeth 30ml oral suspension PO PRN (11:55)
[2018-06-07] MEDS ORDERED: acetaminophen 325mg tablet PO PRN ×2 (11:55)
[2018-06-07] MEDS ORDERED: magnesium hydroxide 30ml (MOM) UD suspension PO PRN (11:55)
[2018-06-07] MEDS ORDERED: HYDROcodone/acetaminophen 5mg/325mg tablet PO PRN (11:55)
[2018-06-07] MEDS ORDERED: ondansetron/PF 4mg/2ml inj IV PRN (11:55)
[2018-06-07] MEDS ORDERED: albuterol 2.5 MG/3 ML nebule NEB STA (12:03)
[2018-06-07] MEDS ORDERED: sodium bicarbonate (8.4%) 1 mEq/ml syringe IV ONE (12:05)
[2018-06-07] MEDS ORDERED: calcium gluconate inj. 1 GM in normal saline 100ml IV soln 90 ML IV ONE (12:05)
--- NOTE | 2018-06-07 12:22 | NUR ---
SPOKE WITH SON SUREKHA [phone] UPDATED PT CONDITION. PT IS SUPPOSED TO HAVE PROCRIT IM TOMORROW AT [facility]. NORMALLY A/0X3
[2018-06-07] MEDS ORDERED: normal saline 1000ml 1,000 ML IV ONE (12:25)
--- NOTE | 2018-06-07 13:00 | NUR ---
PT ASLEEP, INTERMITTENTLY MOANS "PLEASE MOMMA, PLEASE" FALLS ASLEEP AND DOESNT FINISH ASNWERING QUESTIONS
[2018-06-07] MEDS: CefTRIAXone/D5W-Rocephin 1gm 50 ML IV SCH (13:03)
[2018-06-07 13:05] LABS: CREATINE KINASE 215 U/L (26-192)
[2018-06-07 14:00] LABS: URINE AMPHETAMINE SCREEN NEGATIVE (Neg); URINE BARBITUATE SCREEN NEGATIVE (Neg); URINE BENZODIAZEPINES SCREEN NEGATIVE (Neg); URINE CANNABINOID SCREEN NEGATIVE (Neg); URINE COCAINE SCREEN NEGATIVE (Neg); URINE METHADONE SCREEN NEGATIVE (Neg); URINE OPIATE SCREEN POSITIVE (Neg); URINE PHENCYCLIDINE SCREEN NEGATIVE (Neg)
[2018-06-07] MEDS: DEXTROSE 5% IV SCH (14:06)
[2018-06-07] MEDS: SODIUM BICARBONATE IV SCH (14:06)
[2018-06-07] MEDS: 1/2 NORMAL SALINE IV SCH (14:06)
[2018-06-07] MEDS: HYDROmorphone inj. 0.5 MG/0.5 ML DISP.SYRIN IV PRN ×3 (14:10→21:50)
--- NOTE | 2018-06-07 14:10 | NUR ---
RT AT BEDSIDE FOR TX. PT MEDICATED FOR PAIN
--- NOTE | 2018-06-07 16:05 | NUR ---
PT ASLEEP NAD
--- NOTE | 2018-06-07 17:37 | NUR ---
ICE PLACED ON RIGHT SHOULDER PT EPOSITIONED IN BED. PT MEDICATED. RT SHOULDER IMMOBILIZER READJUSTED Addendum: 06/07/18 at 1738 by NOAH EDIT-PT REPOSITIONED IN BED
--- NOTE | 2018-06-07 17:47 | NUR ---
SPOKE WITH DR CAITLIN JUSTICE PT HTN AND HOME MEDS. AWAITING ORDERS
[2018-06-07] MEDS ORDERED: temazepam 15mg capsule PO PRN (21:00)
[2018-06-07] MEDS: heparin, porcine 5000 units/ml vial SQ SCH (21:49)
[2018-06-07] MEDS: hydrALAZINE 20mg/ml inj. IV PRN (22:01)
[2018-06-08] MEDS: SODIUM BICARBONATE IV SCH ×3 (01:05→17:25)
[2018-06-08] MEDS: 1/2 NORMAL SALINE IV SCH ×3 (01:05→17:25)
[2018-06-08] MEDS: DEXTROSE 5% IV SCH ×3 (01:05→17:25)
--- NOTE | 2018-06-08 03:13 | NUR ---
PATIENT PLACED ON HOSPITAL BED
[2018-06-08] MEDS: HYDROmorphone 1 mg/ml syringe IV PRN ×2 (04:49→19:35)
--- NOTE | 2018-06-08 06:30 | NUR ---
received report from ACCOUNTING SOFTWARE SPECIALIST await pt to bed 2784m
--- NOTE | 2018-06-08 07:14 | NUR ---
Arrival from ER Addendum: 06/08/18 at 0715 by Acacia Rodarte RN Amended: Links added.
[2018-06-08 07:44] LABS: BASOPHILS % (AUTO) 0 % (0-1); EOSINOPHILS # (AUTO) 0.3 X10'3 (0-0.9); HEMOGLOBIN 7.3 g/dl (12.0-16.0); LYMPHOCYTES # (AUTO) 0.9 X10'3 (1.1-4.8); LYMPHOCYTES % (AUTO) 6.8 % (21-51); MEAN CORPUSCULAR HEMOGLOBIN 29.7 PG (27.0-31.0); MEAN CORPUSCULAR HGB CONC 33.6 % (33.0-36.5); MEAN CORPUSCULAR VOLUME 88.4 FL (78-98); MEAN PLATELET VOLUME 7.7 FL (7.4-10.4); MONOCYTES # (AUTO) 0.8 X10'3 (0-0.9); MONOCYTES % (AUTO) 5.7 % (2-12); NEUTROPHILS # (AUTO) 11.8 X10'3 (1.8-7.7); NEUTROPHILS % (AUTO) 85.5 % (42-75); PLATELET COUNT 168 X10'3 (140-440); RED BLOOD COUNT 2.45 X10'6 (4.20-5.60); RED CELL DISTRIBUTION WIDTH 14.3 % (11.5-14.5); WHITE BLOOD COUNT 13.8 X10'3 (4.5-11.0)
[2018-06-08] MEDS: normal saline 1000ml 1,000 ML IV SCH ×2 (07:54→17:54)
[2018-06-08 07:56] LABS: HEMATOCRIT 21.7 % (35.0-45.0)
[2018-06-08 08:01] LABS: ALANINE AMINOTRANSFERASE 17 U/L (12-78); ALBUMIN 2.4 G/DL (3.4-5.0); ALBUMIN/GLOBULIN RATIO 0.7 (1.1-1.5); ALKALINE PHOSPHATASE 70 IU/L (46-116); ANION GAP 13 (8-16); ASPARTATE AMINO TRANSFERASE 18 U/L (10-37); BILIRUBIN,TOTAL 0.3 MG/DL (0.1-1.0); BLOOD UREA NITROGEN 75 MG/DL (7-18); BUN/CREATININE RATIO 11.4 (6.6-38.0); CALCIUM 8.2 MG/DL (8.5-10.1); CHLORIDE 108 MMOL/L (99-107); CREATININE 6.59 MG/DL (0.40-0.90); GLUCOSE 268 MG/DL (70-104); POTASSIUM 4.8 MMOL/L (3.5-5.1); SODIUM 145 MMOL/L (135-145); TOTAL CARBON DIOXIDE 23.8 MMOL/L (24-32); TOTAL PROTEIN 5.7 G/DL (6.4-8.2); eGFR 6 ML/MIN
--- NOTE | 2018-06-08 08:02 | NUR ---
Page to Dr Tor Carrillo u [phone] re anaid Pappas in [phone]- received critical hematocrit 21.7. Also glucose was 249, treat per protocol? Thanks!
--- NOTE | 2018-06-08 09:05 | NUR ---
PAGER ID: [phone] MESSAGE: [id number] JOVANNY PAYAN HAS ST ELEVATION IN V LEADS. TAMEKA U [id number] Addendum: 06/08/18 at 0917 by Tameka Garcia RN Amended: Links added.
[2018-06-08 09:34] LABS: TROPONIN I 0.05 NG/ML (0.0-0.05)
[2018-06-08] MEDS: HYDROcodone/acetaminophen 10/325mg tab PO PRN ×2 (09:56→13:53)
[2018-06-08] MEDS: heparin, porcine 5000 units/ml vial SQ SCH ×2 (09:57→20:00)
[2018-06-08 11:00] VITALS: BP 187/78
[2018-06-08] MEDS ORDERED: dextrose 50%-water 50ml dispensing syringe IV PRN (12:05)
[2018-06-08] MEDS ORDERED: dextrose ORAL solution 15 GM/59 ML bottle PO PRN ×2 (12:05)
[2018-06-08] MEDS ORDERED: MESSAGE TO PHARMACY PO ONE (12:05)
[2018-06-08] MEDS ORDERED: glucagon, human recombinant 1mg kit SUBCUT PRN (12:05)
[2018-06-08] MEDS: CefTRIAXone/D5W-Rocephin 1gm 50 ML IV SCH (13:23)
[2018-06-08 15:00] VITALS: BP 201/76
--- NOTE | 2018-06-08 15:32 | NUR ---
PAGER ID: [phone] MESSAGE: Lorena 8917 anaid Roche in [id number]- her bp is 205/85, HR 106, takes diltiazem 180 q d, carvedilol 12.5 bid Addendum: 06/08/18 at 1659 by Acacia Rodarte RN received orders to restart home BP meds.
[2018-06-08] MEDS: insulin Lispro (HumaLOG) vial - multi-dose SQ SCH ×2 (15:38→18:52)
--- NOTE | 2018-06-08 16:07 | NUR ---
started dm protocol at level 1 she is a level 1 Addendum: 06/08/18 at 1608 by Acacia Rodarte RN Amended: Links added. Addendum: 06/08/18 at 1659 by Acacia Rodarte RN pt is a type 1 diabetic
[2018-06-08] MEDS: diltiazem CD 180mg cap (once-daily) PO SCH (17:24)
[2018-06-08 18:00] VITALS: BP 193/55
[2018-06-08] MEDS: QUEtiapine 25mg tablet PO SCH (18:00)
--- NOTE | 2018-06-08 18:29 | NUR ---
Received report from Lorena CASTREJON pt is in bed on RA, pt did not want to eat dinner, tabs alarm on.
[2018-06-08] MEDS: hydrALAZINE 20mg/ml inj. IV PRN (19:31)
--- NOTE | 2018-06-08 19:53 | NUR ---
pt is having increased agitation, refused to take any PO meds for me. I gave pt hydralizine for B/P: of 193/55 and HR 110, pt was wincing in pain so I gave pt dilaudid for pain.
[2018-06-08] MEDS: minoxidil 2.5mg tablet PO SCH (20:00)
[2018-06-08] MEDS: carVEDilol 12.5mg tablet PO SCH (20:00)
[2018-06-08] MEDS: insulin glargine (Lantus) pen - multi-dose SQ SCH (21:07)
[2018-06-08] MEDS: LORazepam 2 mg/ml vial IV PRN (21:22)
[2018-06-08 23:00] VITALS: BP 169/64
[2018-06-09] VITALS (20 sets, daily range): BP systolic 122–194; BP diastolic 54–90
[2018-06-09] MEDS: HYDROmorphone 1 mg/ml syringe IV PRN ×4 (01:10→19:01)
[2018-06-09] MEDS ORDERED: diltiazem 5mg/ml 5ml inj. IV ONE ×2 (02:10→04:00)
[2018-06-09] MEDS: normal saline 1000ml 1,000 ML IV SCH ×3 (03:54→23:54)
--- NOTE | 2018-06-09 04:02 | NUR ---
Spoke with Dr. Barrett about pt's HR sustaining in the 130s-140s in A.fib, B/P: 132/69, Dr. Barrett ordered a 10mg Cardizem bolus, and then to put pt on a 5mg/hr cardizem drip. Reported off to Ursula CASTREJON.
[2018-06-09] MEDS: diltiazem-D5W 125mg/125ml 125 ML IV SCH (04:48)
[2018-06-09 05:25] LABS: BASOPHILS % (AUTO) 0 % (0-1); EOSINOPHILS # (AUTO) 0.3 X10'3 (0-0.9); EOSINOPHILS % (AUTO) 2.1 % (0-6); LYMPHOCYTES # (AUTO) 0.8 X10'3 (1.1-4.8); LYMPHOCYTES % (AUTO) 6.4 % (21-51); MEAN CORPUSCULAR HEMOGLOBIN 30.4 PG (27.0-31.0); MEAN CORPUSCULAR HGB CONC 34.2 % (33.0-36.5); MEAN CORPUSCULAR VOLUME 88.9 FL (78-98); MEAN PLATELET VOLUME 8.8 FL (7.4-10.4); MONOCYTES % (AUTO) 7.3 % (2-12); NEUTROPHILS # (AUTO) 10.9 X10'3 (1.8-7.7); NEUTROPHILS % (AUTO) 84.2 % (42-75); PLATELET COUNT 153 X10'3 (140-440); RED BLOOD COUNT 2.22 X10'6 (4.20-5.60); RED CELL DISTRIBUTION WIDTH 14.4 % (11.5-14.5)
[2018-06-09 05:45] LABS: ALANINE AMINOTRANSFERASE 17 U/L (12-78); ALBUMIN 2.2 G/DL (3.4-5.0); ALBUMIN/GLOBULIN RATIO 0.7 (1.1-1.5); ALKALINE PHOSPHATASE 70 IU/L (46-116); ANION GAP 12 (8-16); ASPARTATE AMINO TRANSFERASE 24 U/L (10-37); BILIRUBIN,TOTAL 0.3 MG/DL (0.1-1.0); BLOOD UREA NITROGEN 74 MG/DL (7-18); BUN/CREATININE RATIO 11.7 (6.6-38.0); CALCIUM 7.7 MG/DL (8.5-10.1); CHLORIDE 109 MMOL/L (99-107); CREATININE 6.32 MG/DL (0.40-0.90); GLUCOSE 174 MG/DL (70-104); POTASSIUM 3.4 MMOL/L (3.5-5.1); SODIUM 151 MMOL/L (135-145); TOTAL CARBON DIOXIDE 30.2 MMOL/L (24-32); TOTAL PROTEIN 5.5 G/DL (6.4-8.2); eGFR 7 ML/MIN
--- NOTE | 2018-06-09 06:26 | NUR ---
Problems reprioritized. Patient report given, questions answered & plan of care reviewed with Sis CASTREJON.
[2018-06-09 06:29] LABS: HEMOGLOBIN 6.8 g/dl (12.0-16.0)
[2018-06-09 06:30] LABS: HEMATOCRIT 19.7 % (35.0-45.0)
--- NOTE | 2018-06-09 06:37 | NUR ---
Patient in room PCU 3028. I have received report from Ursula CASTREJON and had the opportunity to ask questions and assume patient care. Will continue to monitor patient.
[2018-06-09] MEDS ORDERED: epoetin 20,000 units/ml inj IV ONE (08:00)
[2018-06-09] MEDS ORDERED: heparin 1,000 units/ml 10ml inj IV ONE (08:00)
[2018-06-09] MEDS ORDERED: non-formulary drug (Simvastatin* (Zocor*) 20 MG) PO SCH (08:00)
[2018-06-09] MEDS ORDERED: heparin 1,000 units/ml 10ml inj HE ONE ×2 (08:00)
[2018-06-09] MEDS ORDERED: heparin 1,000unit/ml 10ml vial 10 ML IV ONE (08:00)
[2018-06-09] MEDS ORDERED: albumin (Human) 5% 250ml 250 ML IV PRN (08:00)
[2018-06-09] MEDS: minoxidil 2.5mg tablet PO SCH ×2 (08:07→20:00)
[2018-06-09] MEDS: carVEDilol 12.5mg tablet PO SCH ×2 (08:07→20:00)
[2018-06-09] MEDS: atorvastatin 10mg tablet PO SCH (08:08)
[2018-06-09] MEDS: diltiazem CD 180mg cap (once-daily) PO SCH (08:08)
[2018-06-09] MEDS: heparin, porcine 5000 units/ml vial SQ SCH ×2 (08:08→22:11)
[2018-06-09] MEDS: CefTRIAXone/D5W-Rocephin 1gm 50 ML IV SCH (08:09)
[2018-06-09] MEDS: LORazepam 2 mg/ml vial IV PRN ×2 (08:21→17:11)
[2018-06-09] MEDS: insulin Lispro (HumaLOG) vial - multi-dose SQ SCH ×2 (08:29→12:26)
--- NOTE | 2018-06-09 08:46 | NUR ---
Page sent to Dr. Fernandez: PAGER ID: [phone] MESSAGE: [id number] Pappas: Critical H/H, it is 6.8/19.7. Thanks, Sis [phone]
[2018-06-09] MEDS ORDERED: acetaminophen 325mg tablet PO ONE (09:30)
[2018-06-09] MEDS ORDERED: pneumococcal 23-VAL P-sac vacc 25 mcg/0.5ml vial IMVAC ONE (10:00)
[2018-06-09] MEDS: 1/2 NORMAL SALINE IV SCH (10:45)
[2018-06-09] MEDS: SODIUM BICARBONATE IV SCH (10:45)
[2018-06-09] MEDS: DEXTROSE 5% IV SCH (10:45)
[2018-06-09] MEDS ORDERED: potassium Cl 40MEQ/NS 500ml 500 ML IV PRN ×2 (11:00)
[2018-06-09] MEDS ORDERED: potassium Cl 20 mEq SR tablet PO PRN (11:00)
[2018-06-09] MEDS ORDERED: magnesium Cl slow-release 64mg tablet PO PRN (11:00)
--- NOTE | 2018-06-09 11:21 | NUR ---
Consult: A1C 7.0. Pt admit w/ right displaced surgical neck fracture, patellar fracture. Per documentation pt is poor historian, confused, A/O x 1,agitated, combative and resistant to care. DM education not appropriate at this time. Pt PO intake is <25% with refusal of meal. No documented BM. Will continue to monitor for ONS Rec: 1. Continue with CHO control diet 2. Monitor for ONS 3. Monitor for bowel care 4. wt per rx Addendum: 06/09/18 at [address] Amended: Links added. Addendum: 06/09/18 at [address] I have reviewed and agree with note by Clinical Trials Manager. Aleena Johnson RD
[2018-06-09] MEDS: potassium Cl 20 mEq SR tablet PO PRN ×2 (12:18→17:11)
[2018-06-09] MEDS ORDERED: midazolam 2 mg/2 ml injection ONE (16:15)
[2018-06-09] MEDS ORDERED: heparin 1,000unit/ml 10ml vial 10 ML ONE (16:15)
[2018-06-09] MEDS ORDERED: fentaNYL/PF 50MCG/1 ML 2ML syringe ONE (16:15)
[2018-06-09] MEDS ORDERED: LIDOcaine 1%/PF 5ML 10 MG/ML VIAL ONE (16:15)
[2018-06-09] MEDS ORDERED: normal saline 1000ml 1,000 ML IV SCH (16:23)
[2018-06-09] MEDS ORDERED: midazolam 2 mg/2 ml injection IV PRN (16:25)
[2018-06-09] MEDS ORDERED: LIDOcaine 1%/PF 5ML 10 MG/ML VIAL SQ ONE (16:25)
[2018-06-09] MEDS ORDERED: fentaNYL/PF 50MCG/1 ML 2ML syringe IV PRN (16:25)
[2018-06-09] MEDS ORDERED: heparin 1,000 units/ml 10ml inj ICATH ONE (16:25)
[2018-06-09] MEDS: QUEtiapine 25mg tablet PO SCH (18:00)
--- NOTE | 2018-06-09 18:27 | NUR ---
Problems reprioritized. Patient report given, questions answered & plan of care reviewed with Tamela CASTREJON. Patient stable at transfer of care, blood infusing currently. VS stable
--- NOTE | 2018-06-09 18:45 | NUR ---
Patient in room PCU 3028. I have received report from Sis CASTREJON and had the opportunity to ask questions and assume patient care.
--- NOTE | 2018-06-09 19:00 | NUR ---
Blood inf to R FA site. HD RN at bedside to start dialysis. Pt restless, yelling, appears unable to rest. IV pain digital media representative f/mod. relief. Difficult to keep pt. positioned as she pulls at tele leads and removes O2, desats quickly. Answers simple questions approp. Attempted to admin PO water, pt. began to cough and spit out fluid, unable to swallow after sitting up high in bed. Seems interm confused, agitated, trying to come out of her bed. Staff member in room at all times. NC changed to mask, sleeping interm now.
--- NOTE | 2018-06-09 21:00 | NUR ---
Blood infusion completed. HD to be completed.
[2018-06-09] MEDS: insulin glargine (Lantus) pen - multi-dose SQ SCH (22:09)
[2018-06-10] VITALS (17 sets, daily range): BP systolic 123–186; BP diastolic 52–96
[2018-06-10] MEDS: HYDROmorphone 1 mg/ml syringe IV PRN ×5 (00:21→21:41)
--- NOTE | 2018-06-10 01:00 | NUR ---
Notified MD of pt's persistent high BP following HD. IV apresoline ord. and admin f/minimal effect. Wrist restraint ord. also obtained and applied. Pt. cont to be restless. Medicated f/pain f/minimal relief, sleeping interm. MD also informed of increase in temp., no ord given at this time. Pt cont to moan and cont. to be restless.
[2018-06-10] MEDS ORDERED: hydrALAZINE 20mg/ml inj. IV PRN (02:25)
[2018-06-10] MEDS: LORazepam 2 mg/ml vial IV PRN (03:27)
--- NOTE | 2018-06-10 04:00 | NUR ---
Ativan IV admin w/no effect.
[2018-06-10] MEDS: diltiazem-D5W 125mg/125ml 125 ML IV SCH (04:14)
--- NOTE | 2018-06-10 06:00 | NUR ---
Problems reprioritized. Patient report given, questions answered & plan of care reviewed with Sammi CASTREJON.
[2018-06-10] MEDS ORDERED: acetaminophen 325mg rectal suppository RC PRN (06:05)
--- NOTE | 2018-06-10 06:10 | NUR ---
PAGER ID: [phone] MESSAGE: [id number] pt Mian is unable to swallow currently. She has a temp of 100.7 axillary and only PO Tylenol. May I have a suppository please. Also, FYI her SBP has been in the 180s. NOC nurse gave IV Hydralazine - Sammi [phone]
[2018-06-10] MEDS ORDERED: ziprasidone IM 20mg inj **IM only IM ONE (07:45)
[2018-06-10] MEDS ORDERED: heparin 1,000 units/ml 10ml inj HE ONE ×2 (08:00)
[2018-06-10] MEDS: carVEDilol 12.5mg tablet PO SCH (08:00)
[2018-06-10] MEDS ORDERED: albumin (Human) 5% 250ml 250 ML IV PRN (08:00)
[2018-06-10] MEDS: minoxidil 2.5mg tablet PO SCH ×2 (08:00→20:00)
[2018-06-10] MEDS: loratadine 10mg tablet PO SCH (08:00)
[2018-06-10] MEDS ORDERED: epoetin 20,000 units/ml inj IV ONE (08:00)
[2018-06-10] MEDS: heparin, porcine 5000 units/ml vial SQ SCH (08:00)
[2018-06-10] MEDS: CefTRIAXone/D5W-Rocephin 1gm 50 ML IV SCH (08:40)
[2018-06-10] MEDS: insulin Lispro (HumaLOG) vial - multi-dose SQ SCH (09:26)
[2018-06-10] MEDS: 1/2 NORMAL SALINE IV SCH (09:26)
[2018-06-10] MEDS: SODIUM BICARBONATE IV SCH (09:26)
[2018-06-10] MEDS: DEXTROSE 5% IV SCH (09:26)
[2018-06-10 09:30] LABS: ALANINE AMINOTRANSFERASE 21 U/L (12-78); ALBUMIN 2.3 G/DL (3.4-5.0); ALBUMIN/GLOBULIN RATIO 0.6 (1.1-1.5); ALKALINE PHOSPHATASE 81 IU/L (46-116); ANION GAP 8 (8-16); ASPARTATE AMINO TRANSFERASE 27 U/L (10-37); BILIRUBIN,TOTAL 0.5 MG/DL (0.1-1.0); BLOOD UREA NITROGEN 31 MG/DL (7-18); BUN/CREATININE RATIO 8.6 (6.6-38.0); CALCIUM 7.9 MG/DL (8.5-10.1); CHLORIDE 105 MMOL/L (99-107); GLUCOSE 222 MG/DL (70-104); POTASSIUM 3.7 MMOL/L (3.5-5.1); SODIUM 146 MMOL/L (135-145); TOTAL CARBON DIOXIDE 33.2 MMOL/L (24-32); TOTAL PROTEIN 5.9 G/DL (6.4-8.2); eGFR 13 ML/MIN
[2018-06-10] MEDS: diltiazem CD 180mg cap (once-daily) PO SCH (09:38)
[2018-06-10] MEDS: atorvastatin 10mg tablet PO SCH (09:38)
[2018-06-10 09:40] LABS: BASOPHILS % (AUTO) 0 % (0-1); EOSINOPHILS # (AUTO) 0.2 X10'3 (0-0.9); EOSINOPHILS % (AUTO) 1.6 % (0-6); HEMATOCRIT 24.9 % (35.0-45.0); HEMOGLOBIN 8.4 g/dl (12.0-16.0); LYMPHOCYTES % (AUTO) 7.1 % (21-51); MEAN CORPUSCULAR HEMOGLOBIN 30.5 PG (27.0-31.0); MEAN CORPUSCULAR HGB CONC 33.8 % (33.0-36.5); MEAN CORPUSCULAR VOLUME 90.2 FL (78-98); MEAN PLATELET VOLUME 8.7 FL (7.4-10.4); MONOCYTES % (AUTO) 7.4 % (2-12); NEUTROPHILS # (AUTO) 11.4 X10'3 (1.8-7.7); NEUTROPHILS % (AUTO) 83.9 % (42-75); PLATELET COUNT 178 X10'3 (140-440); RED BLOOD COUNT 2.75 X10'6 (4.20-5.60); RED CELL DISTRIBUTION WIDTH 14.4 % (11.5-14.5); WHITE BLOOD COUNT 13.5 X10'3 (4.5-11.0)
[2018-06-10] MEDS: normal saline 1000ml 1,000 ML IV SCH (09:54)
--- NOTE | 2018-06-10 10:23 | NUR ---
PAGER ID: [phone] MESSAGE: [id number] pt Pappas both of her left arm IVs are infiltrated. She has a right humeral fracture and left patella fracture. May I put an IV in her left shoulder or right foot please? - Sammi [phone]
[2018-06-10] MEDS ORDERED: diltiazem 5mg/ml 5ml inj. IV ONE ×2 (11:10→14:25)
[2018-06-10] MEDS ORDERED: amiodarone 150mg/dext, iso-os 100 ML IV ONE (18:10)
--- NOTE | 2018-06-10 18:11 | NUR ---
Problems reprioritized. Patient report given, questions answered & plan of care reviewed with LUCÍA Augustine.
--- NOTE | 2018-06-10 18:42 | NUR ---
Patient in room PCU 3028. I have received report from Sammi CASTREJON and had the opportunity to ask questions and assume patient care.
[2018-06-10] MEDS: lactobacillus rhamnosus 10,000 MMU CELLS/CAPSULE PO SCH (20:00)
[2018-06-10 20:51] LABS: FERRITIN 141 NG/ML (8-252)
[2018-06-10 20:55] LABS: % IRON SATURATION 10 % (11-46); IRON 23 UG/DL (49-151); TOTAL IRON BINDING CAPACITY 222 UG/DL (259-388)
--- NOTE | 2018-06-10 21:45 | NUR ---
See graphic f/protocol VS at IV Amiodarone initiation.
[2018-06-10] MEDS: amiodarone/D5 360MG/200ML BAG 200 ML IV SCH (22:10)
[2018-06-10] MEDS: hydrALAZINE 20mg/ml inj. IV PRN (22:15)
[2018-06-10] MEDS: insulin glargine (Lantus) pen - multi-dose SQ SCH (23:43)
[2018-06-11] VITALS (22 sets, daily range): BP systolic 113–206; BP diastolic 40–91
[2018-06-11] MEDS: QUEtiapine 25mg tablet PO SCH (00:40)
[2018-06-11] MEDS: carVEDilol 12.5mg tablet PO SCH ×2 (00:41→08:00)
[2018-06-11] MEDS: normal saline 1000ml 1,000 ML IV SCH (00:41)
[2018-06-11] MEDS: heparin, porcine 5000 units/ml vial SQ SCH ×3 (00:45→20:26)
[2018-06-11] MEDS: HYDROmorphone 1 mg/ml syringe IV PRN ×2 (01:55→08:41)
[2018-06-11] MEDS: hydrALAZINE 20mg/ml inj. IV PRN ×2 (03:18→08:33)
[2018-06-11] MEDS: ziprasidone IM 20mg inj **IM only IM PRN ×2 (03:52→11:43)
[2018-06-11] MEDS: amiodarone/D5 360MG/200ML BAG 200 ML IV SCH ×4 (04:45→17:25)
[2018-06-11 05:33] LABS: BASOPHILS % (AUTO) 0.1 % (0-1); EOSINOPHILS # (AUTO) 0.5 X10'3 (0-0.9); EOSINOPHILS % (AUTO) 3.9 % (0-6); HEMATOCRIT 27.1 % (35.0-45.0); HEMOGLOBIN 9.2 g/dl (12.0-16.0); LYMPHOCYTES # (AUTO) 1.1 X10'3 (1.1-4.8); LYMPHOCYTES % (AUTO) 8.2 % (21-51); MEAN CORPUSCULAR HEMOGLOBIN 30.5 PG (27.0-31.0); MEAN CORPUSCULAR HGB CONC 33.8 % (33.0-36.5); MEAN CORPUSCULAR VOLUME 90.2 FL (78-98); MEAN PLATELET VOLUME 8.9 FL (7.4-10.4); MONOCYTES % (AUTO) 7.6 % (2-12); NEUTROPHILS # (AUTO) 10.8 X10'3 (1.8-7.7); NEUTROPHILS % (AUTO) 80.2 % (42-75); PLATELET COUNT 196 X10'3 (140-440); RED BLOOD COUNT 3.01 X10'6 (4.20-5.60); RED CELL DISTRIBUTION WIDTH 14.3 % (11.5-14.5); WHITE BLOOD COUNT 13.5 X10'3 (4.5-11.0)
[2018-06-11 05:59] LABS: ALANINE AMINOTRANSFERASE 21 U/L (12-78); ALBUMIN 2.4 G/DL (3.4-5.0); ALBUMIN/GLOBULIN RATIO 0.6 (1.1-1.5); ALKALINE PHOSPHATASE 89 IU/L (46-116); ANION GAP 13 (8-16); ASPARTATE AMINO TRANSFERASE 30 U/L (10-37); BILIRUBIN,TOTAL 0.7 MG/DL (0.1-1.0); BLOOD UREA NITROGEN 24 MG/DL (7-18); BUN/CREATININE RATIO 7.7 (6.6-38.0); CALCIUM 8.5 MG/DL (8.5-10.1); CHLORIDE 101 MMOL/L (99-107); CREATININE 3.11 MG/DL (0.40-0.90); GLUCOSE 159 MG/DL (70-104); POTASSIUM 3.2 MMOL/L (3.5-5.1); SODIUM 143 MMOL/L (135-145); TOTAL CARBON DIOXIDE 29.1 MMOL/L (24-32); TOTAL PROTEIN 6.2 G/DL (6.4-8.2); eGFR 15 ML/MIN
--- NOTE | 2018-06-11 06:43 | NUR ---
Problems reprioritized. Patient report given, questions answered & plan of care reviewed with Sammi CASTREJON.
--- NOTE | 2018-06-11 06:54 | NUR ---
Problems reprioritized. Patient report given, questions answered & plan of care reviewed with LUCÍA Rapp.
[2018-06-11] MEDS: minoxidil 2.5mg tablet PO SCH (08:00)
[2018-06-11] MEDS: atorvastatin 10mg tablet PO SCH (08:00)
[2018-06-11] MEDS: diltiazem CD 180mg cap (once-daily) PO SCH (08:00)
[2018-06-11] MEDS: loratadine 10mg tablet PO SCH (08:00)
[2018-06-11] MEDS: lactobacillus rhamnosus 10,000 MMU CELLS/CAPSULE PO SCH (08:00)
[2018-06-11] MEDS: insulin Lispro (HumaLOG) vial - multi-dose SQ SCH (08:50)
[2018-06-11] MEDS: CefTRIAXone/D5W-Rocephin 1gm 50 ML IV SCH (08:54)
[2018-06-11] MEDS ORDERED: sodium ferric gluc complex inj 25 MG in normal saline 50ml IV soln 48 ML IV ONE (09:30)
[2018-06-11] MEDS: HYDROmorphone inj. 0.5 MG/0.5 ML DISP.SYRIN IV PRN (14:42)
[2018-06-11] MEDS ORDERED: minoxidil 2.5mg tablet CORPAK ONE (14:46)
[2018-06-11] MEDS ORDERED: carVEDilol 12.5mg tablet CORPAK ONE (14:46)
[2018-06-11] MEDS ORDERED: acetaminophen 325mg tablet CORPAK PRN (14:50)
[2018-06-11] MEDS ORDERED: HYDROcodone/acetaminophen 10/325mg tab PO PRN (14:50)
[2018-06-11] MEDS ORDERED: dextrose ORAL solution 15 GM/59 ML bottle CORPAK PRN ×2 (15:05)
--- NOTE | 2018-06-11 16:29 | NUR ---
TF consult: Pt to have corpak placed r/t no PO meals and AOx1 w/ BSS in AM per MD. MD requests Nepro; goal rate below w/ water flush to be determined per MD since ESRD on HD. Currently unable to meet protein needs w/o overfeeding. Will monitor for feeding tolerance and BSS results. Rec: 1. NGTF via corpak using Nepro at 45ml/hr goal; to provide 1080ml fluid, 788ml free water, 1944kcals, and 87g protein. Initiate at 20ml/hr and advance 20ml Q8 to goal as tolerated 2. Consider change to Vital AF at 65ml/hr per MD 3. prealbumin Q /, dialy wts; water flush 200ml Q6 4. advance to CHO control diet per GRISTMILLER 5. Monitor for ONS 6. routine bowel care Addendum: 06/11/18 at [address] Amended: Links added.
[2018-06-11] MEDS: QUEtiapine 25mg tablet CORPAK SCH (17:18)
--- NOTE | 2018-06-11 18:00 | NUR ---
Patient in room PCU 3028. I have received report from LUCÍA Chapa and had the opportunity to ask questions and assume patient care.
--- NOTE | 2018-06-11 18:38 | NUR ---
Problems reprioritized. Patient report given, questions answered & plan of care reviewed with LUCÍA Roger.
--- NOTE | 2018-06-11 19:56 | NUR ---
CALLED PHARMACY ABOUT 30MG CARDIZEM SAYS DO NOT CRUSH, OKAYED TO CRUS[facility] 30MG CARDIZEM.
[2018-06-11] MEDS: minoxidil 2.5mg tablet CORPAK SCH (20:25)
[2018-06-11] MEDS: amiodarone 200mg tablet PO SCH (20:26)
[2018-06-11] MEDS: diltiazem 30mg tablet CORPAK SCH (20:26)
[2018-06-11] MEDS: lactobacillus rhamnosus 10,000 MMU CELLS/CAPSULE CORPAK SCH (20:26)
[2018-06-11] MEDS: ferrous sulfate 300mg/5ml UD oral liquid CORPAK SCH (20:49)
[2018-06-11] MEDS: carVEDilol 12.5mg tablet CORPAK SCH (20:49)
[2018-06-11] MEDS: insulin glargine (Lantus) pen - multi-dose SQ SCH (21:00)
--- NOTE | 2018-06-12 01:36 | NUR ---
PAGER ID: [phone] MESSAGE: [id number] Hetal Pappas- RALPH- pt on last maintenance dose of Amio gtt about 1/4 left of bag but sys bp 90's, stopped gtt for low sys. pt. Acacia [phone]
[2018-06-12] MEDS: diltiazem 30mg tablet CORPAK SCH ×4 (02:00→20:00)
[2018-06-12] MEDS: insulin regular, human vial - multi-dose SQ SCH ×2 (02:45→10:08)
[2018-06-12 03:00] VITALS: BP 118/40
[2018-06-12 05:14] LABS: BASOPHILS % (AUTO) 0 % (0-1); EOSINOPHILS # (AUTO) 0.8 X10'3 (0-0.9); EOSINOPHILS % (AUTO) 6.4 % (0-6); HEMOGLOBIN 9.2 g/dl (12.0-16.0); LYMPHOCYTES % (AUTO) 7.9 % (21-51); MEAN CORPUSCULAR HEMOGLOBIN 30.5 PG (27.0-31.0); MEAN CORPUSCULAR VOLUME 89.8 FL (78-98); MEAN PLATELET VOLUME 8.4 FL (7.4-10.4); MONOCYTES # (AUTO) 0.7 X10'3 (0-0.9); MONOCYTES % (AUTO) 5.4 % (2-12); NEUTROPHILS # (AUTO) 10.3 X10'3 (1.8-7.7); NEUTROPHILS % (AUTO) 80.3 % (42-75); PLATELET COUNT 230 X10'3 (140-440); RED BLOOD COUNT 3.01 X10'6 (4.20-5.60); WHITE BLOOD COUNT 12.9 X10'3 (4.5-11.0)
[2018-06-12 05:23] LABS: ALANINE AMINOTRANSFERASE 20 U/L (12-78); ALBUMIN 2.1 G/DL (3.4-5.0); ALBUMIN/GLOBULIN RATIO 0.6 (1.1-1.5); ALKALINE PHOSPHATASE 92 IU/L (46-116); ANION GAP 12 (8-16); ASPARTATE AMINO TRANSFERASE 24 U/L (10-37); BILIRUBIN,TOTAL 0.5 MG/DL (0.1-1.0); BLOOD UREA NITROGEN 48 MG/DL (7-18); BUN/CREATININE RATIO 10.1 (6.6-38.0); CALCIUM 8.5 MG/DL (8.5-10.1); CHLORIDE 101 MMOL/L (99-107); CREATININE 4.74 MG/DL (0.40-0.90); GLUCOSE 137 MG/DL (70-104); PREALBUMIN 12.6 MG/DL (19-36); SODIUM 141 MMOL/L (135-145); TOTAL CARBON DIOXIDE 28.5 MMOL/L (24-32); TOTAL PROTEIN 5.6 G/DL (6.4-8.2); eGFR 9 ML/MIN
[2018-06-12 05:34] LABS: POTASSIUM 2.8 MMOL/L (3.5-5.1)
--- NOTE | 2018-06-12 05:44 | NUR ---
notified May of critical k+ 2.8. will put in order for k+ replacement
[2018-06-12] MEDS ORDERED: potassium Cl oral solution 20 MEQ/15 ML PO ONE ×2 (05:45→08:05)
[2018-06-12 06:00] VITALS: BP 138/49
--- NOTE | 2018-06-12 06:28 | NUR ---
Problems reprioritized. Patient report given, questions answered & plan of care reviewed with LUCÍA Parham.
--- NOTE | 2018-06-12 07:00 | NUR ---
Patient in room PCU 3028. I have received report from LUCÍA ROUSSEAU and had the opportunity to ask questions and assume patient care.
[2018-06-12] MEDS: amiodarone 200mg tablet PO SCH ×2 (08:00→20:00)
[2018-06-12] MEDS: heparin, porcine 5000 units/ml vial SQ SCH ×2 (08:00→20:00)
[2018-06-12] MEDS: loratadine 10mg tablet CORPAK SCH (08:00)
[2018-06-12] MEDS: lactobacillus rhamnosus 10,000 MMU CELLS/CAPSULE CORPAK SCH ×2 (08:00→20:00)
[2018-06-12] MEDS: carVEDilol 12.5mg tablet CORPAK SCH (08:00)
[2018-06-12] MEDS: minoxidil 2.5mg tablet CORPAK SCH ×2 (08:00→20:00)
[2018-06-12] MEDS: atorvastatin 10mg tablet CORPAK SCH (08:00)
[2018-06-12] MEDS: ferrous sulfate 300mg/5ml UD oral liquid CORPAK SCH ×2 (08:00→20:00)
[2018-06-12] MEDS: CefTRIAXone/D5W-Rocephin 1gm 50 ML IV SCH (08:17)
[2018-06-12] MEDS: ziprasidone IM 20mg inj **IM only IM PRN ×2 (09:43→15:20)
--- NOTE | 2018-06-12 10:39 | NUR ---
has sitter and restraints. pulled out corpac. was to replace. dr. jarrett Addendum: 06/12/18 at 1041 by Karl Hernandez RN dr. lind said to leave out for now . pulled out tdc . hemostasis achieved. corbin jimenez. dr hay notified of all. will give the potassium iv and order new tdc per ir.
[2018-06-12] MEDS ORDERED: POTASSIUM CL IV ONE (10:45)
[2018-06-12] MEDS ORDERED: LIDOCAINE 1% IV ONE (10:45)
[2018-06-12] MEDS ORDERED: [UNRECOGNIZED DRUG - OTHER] IV ONE (10:45)
--- NOTE | 2018-06-12 10:46 | NUR ---
PAGED ANGIO: [id number] NEEDS NEW TDC PLACED TODAY. SHE PULLED IT OUT. MATTHEW [phone]. TY
[2018-06-12 11:00] VITALS: BP 126/46
[2018-06-12 12:41] LABS: ANION GAP 8 (8-16); BLOOD UREA NITROGEN 54 MG/DL (7-18); BUN/CREATININE RATIO 10.2 (6.6-38.0); CALCIUM 8.5 MG/DL (8.5-10.1); CHLORIDE 103 MMOL/L (99-107); GLUCOSE 204 MG/DL (70-104); POTASSIUM 3.8 MMOL/L (3.5-5.1); SODIUM 142 MMOL/L (135-145); TOTAL CARBON DIOXIDE 30.6 MMOL/L (24-32); eGFR 8 ML/MIN
--- NOTE | 2018-06-12 13:00 | NUR ---
DISC USSED Addendum: 06/12/18 at 1435 by Karl Hernandez RN DISCUSSED NO CORPAC/NO PO MEDS GIVEN TODAY R/T PT PULLED OUT CORPAC WITH DR. LOUISE AND DR. YOUNG. DOES HAVE DIET ORDER NOW, HAS NOT BEEN ALERT ENOUGH TO OFFER FOOD OR DRINK OR MEDS. POTASSIUM ADM IV FOR K+ 2.8.
[2018-06-12 15:00] VITALS: BP 140/48
--- NOTE | 2018-06-12 15:36 | NUR ---
unable to perform accucheck. pt combative and screaming with attempt.
[2018-06-12] MEDS: QUEtiapine 25mg tablet CORPAK SCH (18:00)
--- NOTE | 2018-06-12 18:14 | NUR ---
Problems reprioritized. Patient report given, questions answered & plan of care reviewed with devon kellogg.
--- NOTE | 2018-06-12 18:15 | NUR ---
INDUSTRIAL REHABILITATION CONSULTANTcardiopulmonary physical therapist: I have reviewed and agree with all interventions, assessments performed and documented by LUCÍA CORREA. Addendum: 06/12/18 at 1841 by Acacia Everett RN documented by LUCÍA Parham under my user name.
--- NOTE | 2018-06-12 18:40 | NUR ---
Problems reprioritized. Patient report given, questions answered & plan of care reviewed with LUCÍA ROUSSEAU. Addendum: 06/12/18 at 1841 by Acacia Everett RN documented by LUCÍA Parham under my user name.
--- NOTE | 2018-06-12 18:41 | NUR ---
SPEECH PATHOLOGISTreed maker: I have reviewed and agree with all interventions, assessments performed and documented by LUCÍA CORREA.
[2018-06-12 19:00] VITALS: BP 112/61
--- NOTE | 2018-06-12 19:28 | NUR ---
PAGER ID: [phone] MESSAGE: [id number] Hetal Pappas- pt in A.fib w RVRm rate 140's-160's. Had no cardiac meds today due to pulling out corpak. Pt asymptomatic, christal 131/60 Acacia, RN 6002
[2018-06-12] MEDS: amiodarone/D5 360MG/200ML BAG 200 ML IV SCH (20:37)
[2018-06-12] MEDS ORDERED: amiodarone 150mg/dext, iso-os 100 ML IV ONE (20:40)
[2018-06-12] MEDS: insulin glargine (Lantus) pen - multi-dose SQ SCH (21:00)
[2018-06-12 23:00] VITALS: BP 105/61
[2018-06-12] MEDS: LORazepam 2 mg/ml vial IV PRN (23:14)
--- NOTE | 2018-06-12 23:41 | NUR ---
corpak placed, marked at 60cm
[2018-06-13] VITALS (17 sets, daily range): BP systolic 109–145; BP diastolic 37–96
--- NOTE | 2018-06-13 00:21 | NUR ---
per May ok to feed in stomach
[2018-06-13] MEDS: amiodarone/D5 360MG/200ML BAG 200 ML IV SCH ×4 (01:12→17:08)
[2018-06-13] MEDS: carVEDilol 12.5mg tablet CORPAK SCH ×3 (01:14→20:14)
[2018-06-13] MEDS: diltiazem 30mg tablet CORPAK SCH ×4 (01:21→20:14)
[2018-06-13] MEDS: ziprasidone IM 20mg inj **IM only IM PRN ×2 (06:14→14:53)
--- NOTE | 2018-06-13 06:43 | NUR ---
Problems reprioritized. Patient report given, questions answered & plan of care reviewed with LUCÍA Parham.
--- NOTE | 2018-06-13 06:51 | NUR ---
Patient in room PCU 3028. I have received report from LUCÍA ROUSSEAU and had the opportunity to ask questions and assume patient care.
[2018-06-13] MEDS ORDERED: heparin 1,000 units/ml 10ml inj HE ONE ×2 (07:00)
[2018-06-13] MEDS ORDERED: epoetin 20,000 units/ml inj IV ONE (07:00)
[2018-06-13] MEDS ORDERED: albumin (Human) 5% 250ml 250 ML IV PRN (07:00)
[2018-06-13] MEDS: lactobacillus rhamnosus 10,000 MMU CELLS/CAPSULE CORPAK SCH ×2 (07:34→20:14)
[2018-06-13] MEDS: minoxidil 2.5mg tablet CORPAK SCH ×2 (07:34→20:13)
[2018-06-13] MEDS: loratadine 10mg tablet CORPAK SCH (07:34)
[2018-06-13] MEDS: atorvastatin 10mg tablet CORPAK SCH (07:34)
[2018-06-13] MEDS: ferrous sulfate 300mg/5ml UD oral liquid CORPAK SCH ×2 (07:34→20:00)
[2018-06-13] MEDS: heparin, porcine 5000 units/ml vial SQ SCH ×2 (07:34→20:14)
[2018-06-13] MEDS: CefTRIAXone/D5W-Rocephin 1gm 50 ML IV SCH (07:35)
[2018-06-13] MEDS: amiodarone 200mg tablet PO SCH ×2 (08:00→20:14)
[2018-06-13 08:17] LABS: HBSAG SCREEN Negative (Negative)
[2018-06-13] MEDS: insulin regular, human vial - multi-dose SQ SCH ×2 (09:13→12:42)
[2018-06-13 09:25] LABS: HEMATOCRIT 24.4 % (35.0-45.0); MEAN CORPUSCULAR HGB CONC 32.9 % (33.0-36.5); MEAN CORPUSCULAR VOLUME 91.1 FL (78-98); MEAN PLATELET VOLUME 8.2 FL (7.4-10.4); PLATELET COUNT 200 X10'3 (140-440); RED BLOOD COUNT 2.68 X10'6 (4.20-5.60); RED CELL DISTRIBUTION WIDTH 14.6 % (11.5-14.5); WHITE BLOOD COUNT 10.2 X10'3 (4.5-11.0)
--- NOTE | 2018-06-13 11:00 | NUR ---
ASKED DR. LOUISE TO PLEASE RENEW RESTRAIN ORDERS.
[2018-06-13] MEDS ORDERED: LIDOcaine 1%/PF 5ML 10 MG/ML VIAL SQ ONE (11:15)
[2018-06-13] MEDS ORDERED: heparin 1,000 units/ml 10ml inj ICATH ONE (11:15)
[2018-06-13] MEDS ORDERED: fentaNYL/PF 50MCG/1 ML 2ML syringe IV PRN (11:15)
[2018-06-13] MEDS ORDERED: midazolam 2 mg/2 ml injection IV PRN (11:15)
--- NOTE | 2018-06-13 11:20 | NUR ---
TF consult 06/13: TF consult already received 06/11 and recommendations already placed for continuous TF. D/w RN who states pt removed Corpak yesterday however it was able to be replaced and Nepro is currently running at 20 mL/hr working towards recommended goal rate of 45 mL/hr. Pt s/p BSS 06/12 with INDEPENDENT MARKETING CONSULTANT recs of mech soft diet with thin liquids and pt needs a feeder. Pt with mech soft diet with documented PO intake 0% however RN states pt ate almost all of dinner last PM with max assistance. RN also states pt to be combative and confused. Per MD progress notes pt pulled out TDC however will be replaced to pt can continue HD. LBM 06/12. Will continue to follow. TF consult 06/11: Pt to have corpak placed r/t no PO meals and AOx1 w/ BSS in Fay ALCOCER. MD requests Nepro; goal rate below w/ water flush to be determined per MD since ESRD on HD. Currently unable to meet protein needs w/o overfeeding. Will monitor for feeding tolerance and BSS results. Rec: 1. NGTF via corpak using Nepro at 45ml/hr goal; to provide 1080ml fluid, 788ml free water, 1944kcals, and 87g protein. Initiate at 20ml/hr and advance 20ml Q8 to goal as tolerated 2. Consider change to Vital AF at 65ml/hr per MD 3. prealbumin Q /, daily wts; water flush 200ml Q6 4. continue with mech soft thin liquid diet per INDEPENDENT MARKETING CONSULTANT; advance to CHO controlled as medically indicated 5. Monitor for ONS 6. routine bowel care Addendum: 06/13/18 at [address] Amended: Links added.
--- NOTE | 2018-06-13 11:23 | NUR ---
ANGIO IN TO TRANSPORT FOR TDC PLACEMENT, TUBE FEEDING STOPPED, CORPAC FLUSHED.
[2018-06-13] MEDS ORDERED: LIDOcaine 1%/PF 5ML 10 MG/ML VIAL ONE (11:36)
[2018-06-13] MEDS ORDERED: heparin 1,000unit/ml 10ml vial 10 ML ONE (11:46)
[2018-06-13] MEDS ORDERED: fentaNYL/PF 50MCG/1 ML 2ML syringe ONE (11:50)
--- NOTE | 2018-06-13 12:30 | NUR ---
RETURNED FROM ANGIO STATUS POST TDC PLACEMENT. TDC INTACT RIGHT CHEST, NO SX OF HEMATOMA OR HEMORRHAGE. VS STABLE.
[2018-06-13 16:20] LABS: BASOPHILS % (AUTO) 0 % (0-1); EOSINOPHILS # (AUTO) 0.8 X10'3 (0-0.9); HEMATOCRIT 25.6 % (35.0-45.0); HEMOGLOBIN 8.5 g/dl (12.0-16.0); LYMPHOCYTES # (AUTO) 0.9 X10'3 (1.1-4.8); LYMPHOCYTES % (AUTO) 7.4 % (21-51); MEAN CORPUSCULAR HEMOGLOBIN 30.2 PG (27.0-31.0); MEAN CORPUSCULAR HGB CONC 33.3 % (33.0-36.5); MEAN CORPUSCULAR VOLUME 90.7 FL (78-98); MEAN PLATELET VOLUME 8.3 FL (7.4-10.4); MONOCYTES # (AUTO) 1.1 X10'3 (0-0.9); MONOCYTES % (AUTO) 8.8 % (2-12); NEUTROPHILS # (AUTO) 9.2 X10'3 (1.8-7.7); NEUTROPHILS % (AUTO) 76.8 % (42-75); PLATELET COUNT 218 X10'3 (140-440); RED BLOOD COUNT 2.82 X10'6 (4.20-5.60); WHITE BLOOD COUNT 11.9 X10'3 (4.5-11.0)
[2018-06-13] MEDS: QUEtiapine 25mg tablet CORPAK SCH (17:48)
--- NOTE | 2018-06-13 17:59 | NUR ---
NEW HIRE motion picture commentator: I have reviewed and agree with all interventions, assessments performed and documented by LUCÍA CORREA.
--- NOTE | 2018-06-13 18:34 | NUR ---
Patient in room PCU 3028. I have received report from LUCÍA Parham and had the opportunity to ask questions and assume patient care.
--- NOTE | 2018-06-13 18:35 | NUR ---
Problems reprioritized. Patient report given, questions answered & plan of care reviewed with LUCÍA ROUSSEAU.
--- NOTE | 2018-06-13 19:47 | NUR ---
called May about amio PO and gtt, she would like gtt to stop in about and hour after po given.
--- NOTE | 2018-06-13 20:24 | NUR ---
advanced corpak to 70cm, advised by May to advance as it was placed in upper adbomen, ok to be in stomach as we are not bypassing stomach.
[2018-06-13] MEDS: insulin glargine (Lantus) pen - multi-dose SQ SCH (21:00)
--- NOTE | 2018-06-13 22:25 | NUR ---
stopped amio gtt
[2018-06-14] MEDS: diltiazem 30mg tablet CORPAK SCH ×4 (02:00→21:33)
[2018-06-14 03:00] VITALS: BP 134/48
[2018-06-14] MEDS: insulin regular, human vial - multi-dose SQ SCH ×4 (03:49→17:11)
[2018-06-14 05:09] LABS: BASOPHILS % (AUTO) 0.2 % (0-1); EOSINOPHILS # (AUTO) 0.7 X10'3 (0-0.9); HEMATOCRIT 26.3 % (35.0-45.0); HEMOGLOBIN 8.9 g/dl (12.0-16.0); LYMPHOCYTES # (AUTO) 0.9 X10'3 (1.1-4.8); MEAN CORPUSCULAR HEMOGLOBIN 30.4 PG (27.0-31.0); MEAN CORPUSCULAR HGB CONC 33.7 % (33.0-36.5); MEAN CORPUSCULAR VOLUME 90.1 FL (78-98); MONOCYTES # (AUTO) 1.2 X10'3 (0-0.9); MONOCYTES % (AUTO) 8.6 % (2-12); NEUTROPHILS # (AUTO) 10.8 X10'3 (1.8-7.7); NEUTROPHILS % (AUTO) 79.2 % (42-75); PLATELET COUNT 221 X10'3 (140-440); RED BLOOD COUNT 2.92 X10'6 (4.20-5.60); RED CELL DISTRIBUTION WIDTH 14.6 % (11.5-14.5); WHITE BLOOD COUNT 13.6 X10'3 (4.5-11.0)
[2018-06-14 05:37] LABS: ALANINE AMINOTRANSFERASE 22 U/L (12-78); ALBUMIN/GLOBULIN RATIO 0.5 (1.1-1.5); ALKALINE PHOSPHATASE 109 IU/L (46-116); ANION GAP 9 (8-16); ASPARTATE AMINO TRANSFERASE 23 U/L (10-37); BILIRUBIN,TOTAL 0.4 MG/DL (0.1-1.0); BLOOD UREA NITROGEN 30 MG/DL (7-18); BUN/CREATININE RATIO 8.3 (6.6-38.0); CALCIUM 8.2 MG/DL (8.5-10.1); CHLORIDE 100 MMOL/L (99-107); CREATININE 3.61 MG/DL (0.40-0.90); GLUCOSE 230 MG/DL (70-104); MAGNESIUM 1.9 MG/DL (1.5-2.4); PHOSPHORUS 2.2 MG/DL (2.3-4.5); POTASSIUM 4.9 MMOL/L (3.5-5.1); SODIUM 137 MMOL/L (135-145); TOTAL PROTEIN 5.8 G/DL (6.4-8.2); eGFR 12 ML/MIN
[2018-06-14 06:00] VITALS: BP 111/41
--- NOTE | 2018-06-14 06:28 | NUR ---
Patient in room PCU 3028. I have received report from Acacia and had the opportunity to ask questions and assume patient care.
[2018-06-14] MEDS: loratadine 10mg tablet CORPAK SCH (09:23)
[2018-06-14] MEDS: lactobacillus rhamnosus 10,000 MMU CELLS/CAPSULE CORPAK SCH ×2 (09:23→21:34)
[2018-06-14] MEDS: atorvastatin 10mg tablet CORPAK SCH (09:23)
[2018-06-14] MEDS: amiodarone 200mg tablet PO SCH ×2 (09:23→21:33)
[2018-06-14] MEDS: minoxidil 2.5mg tablet CORPAK SCH ×2 (09:23→21:33)
[2018-06-14] MEDS: heparin, porcine 5000 units/ml vial SQ SCH ×2 (09:24→21:34)
[2018-06-14] MEDS: carVEDilol 12.5mg tablet CORPAK SCH ×2 (09:24→21:34)
[2018-06-14] MEDS: ferrous sulfate 300mg/5ml UD oral liquid CORPAK SCH ×2 (09:29→21:34)
[2018-06-14] MEDS: ziprasidone IM 20mg inj **IM only IM PRN (09:29)
[2018-06-14] MEDS: LORazepam 2 mg/ml vial IV PRN (10:34)
--- NOTE | 2018-06-14 10:38 | NUR ---
PT HAVING HALLUCINATIONS AND YELLING OUT. SITTER AND PLATE FORMER TRYING TO COMFORT AND ORIENT PT. PT GIVEN GEODON IM AND ATIVAN IV AN HOUR LATER TO HELP CALM PT SO SHE CAN RELAX AND REST.
[2018-06-14 11:00] VITALS: BP 140/50
[2018-06-14 16:15] VITALS: BP 112/35
[2018-06-14] MEDS: QUEtiapine 25mg tablet CORPAK SCH (17:54)
[2018-06-14 18:00] VITALS: BP 112/88
--- NOTE | 2018-06-14 18:49 | NUR ---
Problems reprioritized. Patient report given, questions answered & plan of care reviewed with Sophie CASTREJON.
--- NOTE | 2018-06-14 18:53 | NUR ---
Patient in room PCU 3028. I have received report from LUCÍA Howard and had the opportunity to ask questions and assume patient care.
[2018-06-14] MEDS: insulin glargine (Lantus) pen - multi-dose SQ SCH (21:54)
[2018-06-14 23:00] VITALS: BP 111/39
[2018-06-15] MEDS: diltiazem 30mg tablet CORPAK SCH ×4 (01:13→20:00)
[2018-06-15] MEDS: ziprasidone IM 20mg inj **IM only IM PRN ×3 (01:13→16:39)
[2018-06-15 02:00] VITALS: BP 131/44
[2018-06-15] MEDS: insulin regular, human vial - multi-dose SQ SCH ×3 (02:45→21:23)
[2018-06-15 05:03] LABS: BASOPHILS % (AUTO) 0 % (0-1); EOSINOPHILS # (AUTO) 0.8 X10'3 (0-0.9); HEMATOCRIT 25.9 % (35.0-45.0); HEMOGLOBIN 8.6 g/dl (12.0-16.0); LYMPHOCYTES # (AUTO) 1.2 X10'3 (1.1-4.8); MEAN CORPUSCULAR HEMOGLOBIN 29.8 PG (27.0-31.0); MEAN CORPUSCULAR HGB CONC 33.1 g/dL (33.0-36.5); MEAN CORPUSCULAR VOLUME 90.1 FL (78-98); MEAN PLATELET VOLUME 9.3 FL (7.4-10.4); MONOCYTES # (AUTO) 1.2 X10'3 (0-0.9); MONOCYTES % (AUTO) 8.7 % (2-12); NEUTROPHILS # (AUTO) 10.1 X10'3 (1.8-7.7); NEUTROPHILS % (AUTO) 76.3 % (42-75); PLATELET COUNT 216 X10'3 (140-440); RED BLOOD COUNT 2.88 X10'6 (4.20-5.60); RED CELL DISTRIBUTION WIDTH 14.4 % (11.5-14.5); WHITE BLOOD COUNT 13.2 X10'3 (4.5-11.0)
[2018-06-15 05:21] LABS: ALANINE AMINOTRANSFERASE 20 U/L (12-78); ALBUMIN 1.9 G/DL (3.4-5.0); ALBUMIN/GLOBULIN RATIO 0.5 (1.1-1.5); ALKALINE PHOSPHATASE 110 IU/L (46-116); ANION GAP 9 (8-16); ASPARTATE AMINO TRANSFERASE 18 U/L (10-37); BILIRUBIN,TOTAL 0.4 MG/DL (0.1-1.0); BLOOD UREA NITROGEN 53 MG/DL (7-18); BUN/CREATININE RATIO 9.6 (6.6-38.0); CALCIUM 8.9 MG/DL (8.5-10.1); CHLORIDE 99 MMOL/L (99-107); GLUCOSE 185 MG/DL (70-104); MAGNESIUM 2.1 MG/DL (1.5-2.4); PHOSPHORUS 3.7 MG/DL (2.3-4.5); POTASSIUM 4.5 MMOL/L (3.5-5.1); SODIUM 137 MMOL/L (135-145); TOTAL CARBON DIOXIDE 28.6 MMOL/L (24-32); TOTAL PROTEIN 5.5 G/DL (6.4-8.2); eGFR 8 ML/MIN
--- NOTE | 2018-06-15 06:38 | NUR ---
Problems reprioritized. Patient report given, questions answered & plan of care reviewed with LUCÍA Howard.
--- NOTE | 2018-06-15 06:58 | NUR ---
Patient in room PCU 3028. I have received report from Sophie CASTREJON and had the opportunity to ask questions and assume patient care.
[2018-06-15 07:34] VITALS: BP 94/38
[2018-06-15] MEDS: lactobacillus rhamnosus 10,000 MMU CELLS/CAPSULE CORPAK SCH ×2 (07:44→21:30)
[2018-06-15] MEDS: minoxidil 2.5mg tablet CORPAK SCH ×2 (07:44→20:00)
[2018-06-15] MEDS: amiodarone 200mg tablet PO SCH ×2 (07:45→21:29)
[2018-06-15] MEDS: heparin, porcine 5000 units/ml vial SQ SCH ×2 (07:45→21:31)
[2018-06-15] MEDS: loratadine 10mg tablet CORPAK SCH (07:45)
[2018-06-15] MEDS: carVEDilol 12.5mg tablet CORPAK SCH ×2 (07:45→20:00)
[2018-06-15] MEDS: atorvastatin 10mg tablet CORPAK SCH (07:45)
[2018-06-15] MEDS ORDERED: albumin (Human) 5% 250ml 250 ML IV PRN (08:00)
[2018-06-15] MEDS ORDERED: epoetin 20,000 units/ml inj IV ONE (08:00)
[2018-06-15] MEDS ORDERED: heparin 1,000 units/ml 10ml inj IV ONE (08:00)
[2018-06-15] MEDS: ferrous sulfate 300mg/5ml UD oral liquid CORPAK SCH ×2 (08:00→21:30)
[2018-06-15] MEDS ORDERED: heparin 1,000 units/ml 10ml inj HE ONE ×2 (08:00)
[2018-06-15] MEDS ORDERED: heparin 1,000unit/ml 10ml vial 10 ML IV ONE (08:00)
[2018-06-15 11:00] VITALS: BP 94/36
--- NOTE | 2018-06-15 12:48 | NUR ---
senior pharmacy technician called with a low BP on pt. Pt getting Dialysis at this time. junior php developer is going to give pt back 300ml at completition of dialysis.
[2018-06-15 15:00] VITALS: BP 103/38
[2018-06-15] MEDS: QUEtiapine 25mg tablet CORPAK SCH (17:45)
--- NOTE | 2018-06-15 18:26 | NUR ---
Problems reprioritized. Patient report given, questions answered & plan of care reviewed with Lorenza CASTREJON.
--- NOTE | 2018-06-15 18:30 | NUR ---
Patient in room PCU 3028. I have received report from Lee CASTREJON and had the opportunity to ask questions and assume patient care. Pt is laying in bed. Just received ORTIZ Suárez per report. She is in one point restraint on right hand bc she has been pulling at her feeding tube, and ripped out her dialysis catheter despite having a sitter. Family son Jose Luis called for updates. I asked what pt like is at baseline. She apparently cares for her own mother as well as lives with her, and is independent. Son said the last time she had signs of psych issues it was on her last admit in august 2017 when she was septic with a bladder infection. "She was put on an antipsychotic that she continued taking at home that was tapered down as she was getting better." He could not remember the name of this med. He explained that he contacted [facility] to see if he could find help such as home health to help with his grandmother and his mother (the pt) once she is discharged. I also followed up with the son about how she injured her leg and arm. Per report, possible fall? Son said he just received a voicemail from her at 2am the day she "hurt herself" while she was at home. He could not track her down following that and eventually called [facility] to find out she was here. No visitors today per report. nitro worker's name is on white board.
[2018-06-15 19:00] VITALS: BP 92/36
[2018-06-15] MEDS: insulin glargine (Lantus) pen - multi-dose SQ SCH (21:25)
--- NOTE | 2018-06-15 22:00 | NUR ---
New tube feeding hung at this time. Nepro 1.8 gonzalo
[2018-06-15 23:00] VITALS: BP 128/37
[2018-06-16] VITALS (8 sets, daily range): BP systolic 83–136; BP diastolic 33–64
[2018-06-16] MEDS ORDERED: albumin 25% 50mL bottle 100 ML IV ONE (00:05)
--- NOTE | 2018-06-16 00:10 | NUR ---
Called Marlo Damian regarding low BPs. Pt had albumin 5% given today and had low MAPs on BPs during and after dialysis. MAPs have been in the 50s. Per Marlo he'd like "200 ml of 25% albumin" to be given. This concentration only comes in 50ml bottles. She will need 4 bottles total.
[2018-06-16] MEDS: albumin 25% 50mL bottle 100 ML IV SCH ×2 (00:34→01:56)
[2018-06-16] MEDS: diltiazem 30mg tablet CORPAK SCH ×4 (02:00→19:52)
[2018-06-16] MEDS: insulin regular, human vial - multi-dose SQ SCH ×4 (02:21→20:19)
[2018-06-16 05:42] LABS: BASOPHILS % (AUTO) 0 % (0-1); EOSINOPHILS # (AUTO) 0.4 X10'3 (0-0.9); HEMATOCRIT 24.2 % (35.0-45.0); HEMOGLOBIN 8.1 g/dl (12.0-16.0); LYMPHOCYTES # (AUTO) 1.1 X10'3 (1.1-4.8); LYMPHOCYTES % (AUTO) 5.6 % (21-51); MEAN CORPUSCULAR HGB CONC 33.4 g/dL (33.0-36.5); MEAN CORPUSCULAR VOLUME 89.8 FL (78-98); MEAN PLATELET VOLUME 9.2 FL (7.4-10.4); MONOCYTES # (AUTO) 1.5 X10'3 (0-0.9); MONOCYTES % (AUTO) 8.1 % (2-12); NEUTROPHILS # (AUTO) 16.1 X10'3 (1.8-7.7); NEUTROPHILS % (AUTO) 84.3 % (42-75); PLATELET COUNT 242 X10'3 (140-440); RED BLOOD COUNT 2.69 X10'6 (4.20-5.60); RED CELL DISTRIBUTION WIDTH 14.4 % (11.5-14.5); WHITE BLOOD COUNT 19.1 X10'3 (4.5-11.0)
[2018-06-16 06:05] LABS: ALANINE AMINOTRANSFERASE 20 U/L (12-78); ALBUMIN 3.1 G/DL (3.4-5.0); ALBUMIN/GLOBULIN RATIO 0.9 (1.1-1.5); ALKALINE PHOSPHATASE 114 IU/L (46-116); ANION GAP 9 (8-16); ASPARTATE AMINO TRANSFERASE 16 U/L (10-37); BILIRUBIN,TOTAL 0.5 MG/DL (0.1-1.0); BLOOD UREA NITROGEN 40 MG/DL (7-18); BUN/CREATININE RATIO 10.3 (6.6-38.0); CALCIUM 8.7 MG/DL (8.5-10.1); CHLORIDE 97 MMOL/L (99-107); CREATININE 3.89 MG/DL (0.40-0.90); GLUCOSE 199 MG/DL (70-104); MAGNESIUM 2.1 MG/DL (1.5-2.4); PHOSPHORUS 1.7 MG/DL (2.3-4.5); POTASSIUM 4.3 MMOL/L (3.5-5.1); SODIUM 136 MMOL/L (135-145); TOTAL CARBON DIOXIDE 29.7 MMOL/L (24-32); TOTAL PROTEIN 6.4 G/DL (6.4-8.2); eGFR 11 ML/MIN
--- NOTE | 2018-06-16 06:55 | NUR ---
Problems reprioritized. Patient report given, questions answered & plan of care reviewed with Letty CASTREJON.
[2018-06-16] MEDS: loratadine 10mg tablet CORPAK SCH ×2 (08:00→08:35)
[2018-06-16] MEDS: amiodarone 200mg tablet PO SCH ×2 (08:34→19:52)
[2018-06-16] MEDS: heparin, porcine 5000 units/ml vial SQ SCH ×2 (08:34→19:52)
[2018-06-16] MEDS: lactobacillus rhamnosus 10,000 MMU CELLS/CAPSULE CORPAK SCH ×2 (08:35→19:52)
[2018-06-16] MEDS: carVEDilol 12.5mg tablet CORPAK SCH ×2 (08:35→19:52)
[2018-06-16] MEDS: minoxidil 2.5mg tablet CORPAK SCH ×2 (08:35→19:52)
[2018-06-16] MEDS: atorvastatin 10mg tablet CORPAK SCH (08:36)
[2018-06-16] MEDS: ferrous sulfate 300mg/5ml UD oral liquid CORPAK SCH ×2 (08:55→20:21)
--- NOTE | 2018-06-16 15:13 | NUR ---
reassessment: Pt tolerating NGTF at goal. PO remains 0% mechanical soft meals. Pt currently hallucinating and pulled TDC while in restraints w/ mittens and sitter per MD. Patella surgery post-poned at this time per MD note. On carb-steady formula w/ GLU increased to 359 this AM; has been on hyperglycemia protocol and not on any steroids. AM GLU was 90 yesterday and received lantus last night in addition to 44 units insulin for correction this AM. LBM 06/13. RD d/w RN for Phos replacement per MD approval given 05/22 today; will continue to monitor. Rec: 1. NGTF via corpak using Nepro at 45ml/hr goal; to provide 1080ml fluid, 788ml free water, 1944kcals, and 87g protein. Initiate at 20ml/hr and advance 20ml Q8 to goal as tolerated 2. Consider change to Vital AF at 65ml/hr per MD 3. prealbumin Q /, daily wts; water flush 200ml Q6 4. continue with [facility] soft thin liquid diet per FERMENTING CELLARS SUPERVISOR; advance to CHO controlled as medically indicated 5. phos replacement per MD approval 6. routine bowel care Addendum: 06/16/18 at [address] Amended: Links added.
[2018-06-16] MEDS: QUEtiapine 25mg tablet CORPAK SCH (18:23)
--- NOTE | 2018-06-16 18:30 | NUR ---
Patient in room PCU 3028A. I have received report from LUCÍA Saenz and had the opportunity to ask questions and assume patient care.
--- NOTE | 2018-06-16 18:44 | NUR ---
Problems reprioritized. Patient report given, questions answered & plan of care reviewed with LUCÍA CAMACHO.
[2018-06-16] MEDS: insulin glargine (Lantus) pen - multi-dose SQ SCH (20:21)
--- NOTE | 2018-06-16 20:57 | NUR ---
Spoke with SID Damian regarding Phosp level this am of 1.7. He said with Dialysis patient they do not replace.
[2018-06-17] MEDS: insulin regular, human vial - multi-dose SQ SCH ×4 (01:38→20:18)
[2018-06-17 01:42] VITALS: BP 105/39
[2018-06-17] MEDS: diltiazem 30mg tablet CORPAK SCH ×4 (01:42→20:00)
[2018-06-17] MEDS ORDERED: albumin 25% 50mL bottle 100 ML IV ONE (04:20)
--- NOTE | 2018-06-17 04:20 | NUR ---
Spoke with Marlo LAU regarding patient bp being low map of 50's. He gave me an order for albumin 25% of 200ml x once. He said it will take awhile but it will do the trick.
[2018-06-17] MEDS: albumin 25% 50mL bottle 100 ML IV SCH ×2 (04:32→04:53)
[2018-06-17 06:00] VITALS: BP 115/37
--- NOTE | 2018-06-17 06:24 | NUR ---
Problems reprioritized. Patient report given, questions answered & plan of care reviewed with LUCÍA Whaley.
[2018-06-17 06:50] LABS: BASOPHILS % (AUTO) 0 % (0-1); EOSINOPHILS # (AUTO) 0.8 X10'3 (0-0.9); EOSINOPHILS % (AUTO) 2.8 % (0-6); HEMOGLOBIN 7.9 g/dl (12.0-16.0); LYMPHOCYTES # (AUTO) 1.5 X10'3 (1.1-4.8); LYMPHOCYTES % (AUTO) 5.6 % (21-51); MEAN CORPUSCULAR HEMOGLOBIN 29.7 PG (27.0-31.0); MEAN CORPUSCULAR VOLUME 89.9 FL (78-98); MEAN PLATELET VOLUME 9.1 FL (7.4-10.4); MONOCYTES # (AUTO) 1.6 X10'3 (0-0.9); NEUTROPHILS # (AUTO) 22.8 X10'3 (1.8-7.7); NEUTROPHILS % (AUTO) 85.6 % (42-75); PLATELET COUNT 246 X10'3 (140-440); RED BLOOD COUNT 2.68 X10'6 (4.20-5.60); RED CELL DISTRIBUTION WIDTH 14.6 % (11.5-14.5)
[2018-06-17 07:03] LABS: WHITE BLOOD COUNT 26.6 X10'3 (4.5-11.0)
--- NOTE | 2018-06-17 07:07 | NUR ---
PAGER ID: [phone] MESSAGE: Jovana CASTREJON [id number] Mian pt. has a critical WBC lab value of 26.6
[2018-06-17 07:42] LABS: ALBUMIN 2.5 G/DL (3.4-5.0); ANION GAP 11 (8-16); BLOOD UREA NITROGEN 74 MG/DL (7-18); BUN/CREATININE RATIO 12.4 (6.6-38.0); CALCIUM 9.5 MG/DL (8.5-10.1); CHLORIDE 98 MMOL/L (99-107); CREATININE 5.96 MG/DL (0.40-0.90); GLUCOSE 131 MG/DL (70-104); MAGNESIUM 2.6 MG/DL (1.5-2.4); PHOSPHORUS 1.7 MG/DL (2.3-4.5); POTASSIUM 4.2 MMOL/L (3.5-5.1); SODIUM 137 MMOL/L (135-145); eGFR 7 ML/MIN
[2018-06-17] MEDS: atorvastatin 10mg tablet CORPAK SCH (07:49)
[2018-06-17] MEDS: loratadine 10mg tablet CORPAK SCH (07:51)
[2018-06-17 07:53] LABS: TOTAL CELLS COUNTED 100
[2018-06-17] MEDS: amiodarone 200mg tablet PO SCH ×2 (07:53→20:12)
[2018-06-17] MEDS: lactobacillus rhamnosus 10,000 MMU CELLS/CAPSULE CORPAK SCH ×2 (07:53→20:12)
[2018-06-17 07:54] LABS: LARGE PLATELETS FEW; PLATELET ESTIMATE NORMAL
[2018-06-17] MEDS: ferrous sulfate 300mg/5ml UD oral liquid CORPAK SCH ×2 (07:56→20:12)
[2018-06-17] MEDS: heparin, porcine 5000 units/ml vial SQ SCH ×2 (07:57→20:12)
[2018-06-17] MEDS: minoxidil 2.5mg tablet CORPAK SCH ×2 (08:00→20:00)
[2018-06-17] MEDS: carVEDilol 12.5mg tablet CORPAK SCH ×2 (08:00→20:00)
[2018-06-17] MEDS ORDERED: epoetin 20,000 units/ml inj IV ONE (09:20)
[2018-06-17] MEDS ORDERED: heparin 1,000unit/ml 10ml vial 10 ML IV ONE (09:20)
[2018-06-17] MEDS ORDERED: albumin (Human) 5% 250ml 250 ML IV PRN (09:20)
[2018-06-17] MEDS ORDERED: normal saline 1000ml 250 ML IV PRN (09:20)
[2018-06-17] MEDS ORDERED: heparin 1,000 units/ml 10ml inj HE ONE ×2 (09:25)
[2018-06-17 11:00] VITALS: BP 86/30
[2018-06-17] MEDS ORDERED: vancomycin/NS 1 GM ADD-VANTAGE 250 ML IV ONE (12:10)
[2018-06-17 15:00] VITALS: BP 104/34
[2018-06-17] MEDS: QUEtiapine 25mg tablet CORPAK SCH (18:45)
[2018-06-17] MEDS: cefepime 1GM/NS ADD-VANTAGE 100 ML IV SCH (18:45)
[2018-06-17 19:00] VITALS: BP 98/53
[2018-06-17] MEDS: insulin glargine (Lantus) pen - multi-dose SQ SCH (20:19)
[2018-06-17 23:00] VITALS: BP 102/35
[2018-06-18] VITALS (10 sets, daily range): BP systolic 99–139; BP diastolic 34–71
[2018-06-18] MEDS: diltiazem 30mg tablet CORPAK SCH ×4 (01:52→22:13)
[2018-06-18] MEDS: insulin regular, human vial - multi-dose SQ SCH ×4 (01:54→22:19)
[2018-06-18] MEDS: VANCOMYCIN LEVEL IV SCH (02:43)
[2018-06-18 05:18] LABS: BASOPHILS % (AUTO) 0 % (0-1); EOSINOPHILS # (AUTO) 0.9 X10'3 (0-0.9); EOSINOPHILS % (AUTO) 4.6 % (0-6); LYMPHOCYTES # (AUTO) 1.5 X10'3 (1.1-4.8); MEAN CORPUSCULAR HEMOGLOBIN 29.7 PG (27.0-31.0); MEAN CORPUSCULAR HGB CONC 33.1 g/dL (33.0-36.5); MEAN CORPUSCULAR VOLUME 89.7 FL (78-98); MEAN PLATELET VOLUME 8.6 FL (7.4-10.4); MONOCYTES # (AUTO) 1.7 X10'3 (0-0.9); MONOCYTES % (AUTO) 8.8 % (2-12); NEUTROPHILS # (AUTO) 14.8 X10'3 (1.8-7.7); NEUTROPHILS % (AUTO) 78.6 % (42-75); PLATELET COUNT 216 X10'3 (140-440); RED BLOOD COUNT 2.32 X10'6 (4.20-5.60); RED CELL DISTRIBUTION WIDTH 14.6 % (11.5-14.5); WHITE BLOOD COUNT 18.8 X10'3 (4.5-11.0)
[2018-06-18 05:31] LABS: ALBUMIN 2.4 G/DL (3.4-5.0); ANION GAP 7 (8-16); BLOOD UREA NITROGEN 44 MG/DL (7-18); BUN/CREATININE RATIO 13.3 (6.6-38.0); CALCIUM 8.4 MG/DL (8.5-10.1); CHLORIDE 101 MMOL/L (99-107); GLUCOSE 126 MG/DL (70-104); MAGNESIUM 2.1 MG/DL (1.5-2.4); PHOSPHORUS 1.7 MG/DL (2.3-4.5); SODIUM 138 MMOL/L (135-145); TOTAL CARBON DIOXIDE 29.6 MMOL/L (24-32); VANCOMYCIN,RANDOM 19.8 UG/ML; eGFR 14 ML/MIN
[2018-06-18 05:49] LABS: HEMATOCRIT 20.8 % (35.0-45.0); HEMOGLOBIN 6.9 g/dl (12.0-16.0)
[2018-06-18] MEDS ORDERED: vancomycin/NS 1 GM ADD-VANTAGE 250 ML X 1 DOSE IV PRN (08:00)
[2018-06-18] MEDS: heparin, porcine 5000 units/ml vial SQ SCH ×2 (08:00→22:14)
[2018-06-18] MEDS: cefepime 1GM/NS ADD-VANTAGE 100 ML IV SCH (08:51)
[2018-06-18] MEDS: lactobacillus rhamnosus 10,000 MMU CELLS/CAPSULE CORPAK SCH ×2 (08:54→22:13)
[2018-06-18] MEDS: minoxidil 2.5mg tablet CORPAK SCH ×2 (08:54→22:13)
[2018-06-18] MEDS: atorvastatin 10mg tablet CORPAK SCH (08:54)
[2018-06-18] MEDS: amiodarone 200mg tablet PO SCH ×2 (08:54→22:14)
[2018-06-18] MEDS: loratadine 10mg tablet CORPAK SCH (08:54)
[2018-06-18] MEDS: carVEDilol 12.5mg tablet CORPAK SCH ×2 (08:54→22:13)
--- NOTE | 2018-06-18 08:57 | NUR ---
Reassessment: PO intake remains 0% on mech soft diet however pt tolerating TF at goal with no residuals. Pt continues to be confused with fluctuating mental status requiring a sitter and restraints per MD progress notes. Patient's BG levels appear to be better controlled now with range of 124-247 on 06/17 and 119-156. Phos remains low however stable. LBM remains 06/13, not on any bowel care. Will d/w RN. Rec: 1. NGTF via corpak using Nepro at 45ml/hr goal; to provide 1080ml fluid, 788ml free water, 1944kcals, and 87g protein. Initiate at 20ml/hr and advance 20ml Q8 to goal as tolerated 2. Consider change to Vital AF at 65ml/hr per MD 3. prealbumin Q /, daily wts; water flush 200ml Q6 4. continue with mech soft thin liquid diet per REMOTE CODERS; advance to CHO controlled as medically indicated 5. phos replacement per MD approval 6. routine bowel care Addendum: 06/18/18 at [address] Amended: Links added.
[2018-06-18] MEDS: ferrous sulfate 300mg/5ml UD oral liquid CORPAK SCH ×2 (09:40→22:13)
[2018-06-18 11:02] LABS: RED BLOOD COUNT 2.47 X10'6 (4.20-5.60); RETICULOCYTE % (AUTO) 4.1 % (0.5-1.5)
[2018-06-18] MEDS: LORazepam 2 mg/ml vial IV PRN (16:20)
--- NOTE | 2018-06-18 18:28 | NUR ---
Problems reprioritized. Patient report given, questions answered & plan of care reviewed with Jessica CASTREJON.
--- NOTE | 2018-06-18 18:30 | NUR ---
Patient in room PCU 3028. I have received report from TWELVE MILE and had the opportunity to ask questions and assume patient care.
[2018-06-18 18:40] LABS: HEMATOCRIT 27.3 % (35.0-45.0); HEMOGLOBIN 8.9 g/dl (12.0-16.0); MEAN CORPUSCULAR HEMOGLOBIN 29.8 PG (27.0-31.0); MEAN CORPUSCULAR HGB CONC 32.8 g/dL (33.0-36.5); MEAN CORPUSCULAR VOLUME 90.8 FL (78-98); MEAN PLATELET VOLUME 8.8 FL (7.4-10.4); PLATELET COUNT 254 X10'3 (140-440); RED CELL DISTRIBUTION WIDTH 14.3 % (11.5-14.5); WHITE BLOOD COUNT 20.8 X10'3 (4.5-11.0)
[2018-06-18] MEDS: QUEtiapine 25mg tablet CORPAK SCH (19:27)
[2018-06-18] MEDS: insulin glargine (Lantus) pen - multi-dose SQ SCH (22:15)
[2018-06-19] VITALS (7 sets, daily range): BP systolic 102–126; BP diastolic 21–95
[2018-06-19] MEDS: LORazepam 2 mg/ml vial IV PRN ×2 (00:40→16:04)
[2018-06-19] MEDS: diltiazem 30mg tablet CORPAK SCH ×4 (02:00→20:11)
[2018-06-19] MEDS: dextrose 50%-water 50ml dispensing syringe IV PRN (02:20)
[2018-06-19] MEDS: insulin regular, human vial - multi-dose SQ SCH ×3 (02:52→20:29)
[2018-06-19] MEDS: VANCOMYCIN LEVEL IV SCH (03:00)
[2018-06-19 05:03] LABS: BASOPHILS % (AUTO) 0 % (0-1); EOSINOPHILS % (AUTO) 5.8 % (0-6); HEMATOCRIT 24.4 % (35.0-45.0); HEMOGLOBIN 8.1 g/dl (12.0-16.0); LYMPHOCYTES # (AUTO) 1.2 X10'3 (1.1-4.8); LYMPHOCYTES % (AUTO) 7.3 % (21-51); MEAN CORPUSCULAR HEMOGLOBIN 30.1 PG (27.0-31.0); MONOCYTES # (AUTO) 1.5 X10'3 (0-0.9); MONOCYTES % (AUTO) 9.4 % (2-12); NEUTROPHILS # (AUTO) 12.8 X10'3 (1.8-7.7); NEUTROPHILS % (AUTO) 77.5 % (42-75); PLATELET COUNT 247 X10'3 (140-440); RED BLOOD COUNT 2.68 X10'6 (4.20-5.60); RED CELL DISTRIBUTION WIDTH 14.6 % (11.5-14.5); WHITE BLOOD COUNT 16.5 X10'3 (4.5-11.0)
[2018-06-19 05:07] LABS: ALBUMIN 2.3 G/DL (3.4-5.0); ANION GAP 8 (8-16); BLOOD UREA NITROGEN 70 MG/DL (7-18); BUN/CREATININE RATIO 14.6 (6.6-38.0); CALCIUM 8.9 MG/DL (8.5-10.1); CHLORIDE 97 MMOL/L (99-107); GLUCOSE 116 MG/DL (70-104); MAGNESIUM 2.6 MG/DL (1.5-2.4); PHOSPHORUS 1.8 MG/DL (2.3-4.5); POTASSIUM 4.1 MMOL/L (3.5-5.1); PREALBUMIN 12.8 MG/DL (19-36); SODIUM 136 MMOL/L (135-145); TOTAL CARBON DIOXIDE 30.8 MMOL/L (24-32); VANCOMYCIN,RANDOM 16.2 UG/ML; eGFR 9 ML/MIN
--- NOTE | 2018-06-19 06:24 | NUR ---
Problems reprioritized. Patient report given, questions answered & plan of care reviewed with DAVE.
[2018-06-19] MEDS: amiodarone 200mg tablet PO SCH ×2 (07:53→20:11)
[2018-06-19] MEDS: minoxidil 2.5mg tablet CORPAK SCH ×2 (07:53→20:11)
[2018-06-19] MEDS: carVEDilol 12.5mg tablet CORPAK SCH ×2 (07:53→20:10)
[2018-06-19] MEDS: ferrous sulfate 300mg/5ml UD oral liquid CORPAK SCH ×2 (07:53→20:11)
[2018-06-19] MEDS: atorvastatin 10mg tablet CORPAK SCH (07:53)
[2018-06-19] MEDS: cefepime 1GM/NS ADD-VANTAGE 100 ML IV SCH (07:53)
[2018-06-19] MEDS: loratadine 10mg tablet CORPAK SCH (07:53)
[2018-06-19] MEDS: lactobacillus rhamnosus 10,000 MMU CELLS/CAPSULE CORPAK SCH ×2 (07:53→20:10)
[2018-06-19] MEDS: heparin, porcine 5000 units/ml vial SQ SCH ×2 (07:54→20:12)
--- NOTE | 2018-06-19 18:33 | NUR ---
Patient in room PCU 3028. I have received report from Arturo CASTREJON and had the opportunity to ask questions and assume patient care.
--- NOTE | 2018-06-19 18:59 | NUR ---
Problems reprioritized. Patient report given, questions answered & plan of care reviewed with Jolanta CASTREJON.
[2018-06-19] MEDS: QUEtiapine 25mg tablet CORPAK SCH (20:10)
[2018-06-19] MEDS: insulin glargine (Lantus) pen - multi-dose SQ SCH (22:40)
[2018-06-20 02:00] VITALS: BP_SYST 87; BP_SYST 94; BP_DIAS 52
[2018-06-20] MEDS: diltiazem 30mg tablet CORPAK SCH ×5 (02:00→19:56)
[2018-06-20] MEDS: insulin regular, human vial - multi-dose SQ SCH ×4 (02:13→20:01)
[2018-06-20] MEDS: VANCOMYCIN LEVEL IV SCH (03:00)
[2018-06-20 05:20] LABS: BASOPHILS % (AUTO) 0 % (0-1); EOSINOPHILS # (AUTO) 0.9 X10'3 (0-0.9); EOSINOPHILS % (AUTO) 5.9 % (0-6); HEMATOCRIT 25.2 % (35.0-45.0); HEMOGLOBIN 8.5 g/dl (12.0-16.0); LYMPHOCYTES # (AUTO) 1.1 X10'3 (1.1-4.8); LYMPHOCYTES % (AUTO) 7.4 % (21-51); MEAN CORPUSCULAR HEMOGLOBIN 30.5 PG (27.0-31.0); MEAN CORPUSCULAR HGB CONC 33.8 g/dL (33.0-36.5); MEAN CORPUSCULAR VOLUME 90.2 FL (78-98); MEAN PLATELET VOLUME 8.6 FL (7.4-10.4); MONOCYTES # (AUTO) 1.3 X10'3 (0-0.9); MONOCYTES % (AUTO) 8.3 % (2-12); NEUTROPHILS # (AUTO) 12.1 X10'3 (1.8-7.7); NEUTROPHILS % (AUTO) 78.4 % (42-75); PLATELET COUNT 271 X10'3 (140-440); RED BLOOD COUNT 2.79 X10'6 (4.20-5.60); RED CELL DISTRIBUTION WIDTH 14.5 % (11.5-14.5); WHITE BLOOD COUNT 15.4 X10'3 (4.5-11.0)
[2018-06-20 05:40] LABS: ANION GAP 9 (8-16); BLOOD UREA NITROGEN 98 MG/DL (7-18); BUN/CREATININE RATIO 16.1 (6.6-38.0); CALCIUM 8.8 MG/DL (8.5-10.1); CHLORIDE 96 MMOL/L (99-107); CREATININE 6.08 MG/DL (0.40-0.90); GLUCOSE 122 MG/DL (70-104); MAGNESIUM 2.8 MG/DL (1.5-2.4); POTASSIUM 4.3 MMOL/L (3.5-5.1); SODIUM 134 MMOL/L (135-145); TOTAL CARBON DIOXIDE 29.1 MMOL/L (24-32); VANCOMYCIN,RANDOM 15.2 UG/ML; eGFR 7 ML/MIN
--- NOTE | 2018-06-20 06:37 | NUR ---
Problems reprioritized. Patient report given, questions answered & plan of care reviewed with Jolanta RN and Prasad RN. Pt in resting. IV intact. Sitter at bedside. no signs of distress.
--- NOTE | 2018-06-20 06:44 | NUR ---
Patient in room PCU 3026J. I have received report from Jolanta CASTREJON and had the opportunity to ask questions and assume patient care. Pt is resting in bed and in no acute distress.
[2018-06-20 07:08] VITALS: BP 115/48
[2018-06-20] MEDS: cefepime 1GM/NS ADD-VANTAGE 100 ML IV SCH (07:57)
[2018-06-20] MEDS: loratadine 10mg tablet CORPAK SCH (07:57)
[2018-06-20] MEDS: atorvastatin 10mg tablet CORPAK SCH (07:58)
[2018-06-20] MEDS: lactobacillus rhamnosus 10,000 MMU CELLS/CAPSULE CORPAK SCH ×2 (07:58→19:56)
[2018-06-20] MEDS: minoxidil 2.5mg tablet CORPAK SCH ×2 (07:58→19:56)
[2018-06-20] MEDS: carVEDilol 12.5mg tablet CORPAK SCH ×3 (07:58→19:56)
[2018-06-20] MEDS: amiodarone 200mg tablet PO SCH ×2 (07:59→19:56)
[2018-06-20] MEDS: heparin, porcine 5000 units/ml vial SQ SCH ×2 (08:00→19:57)
[2018-06-20] MEDS: ferrous sulfate 300mg/5ml UD oral liquid CORPAK SCH ×2 (08:48→19:56)
[2018-06-20] MEDS ORDERED: normal saline 1000ml 250 ML IV PRN (09:23)
[2018-06-20] MEDS ORDERED: heparin 1,000unit/ml 10ml vial 10 ML IV ONE (09:23)
[2018-06-20] MEDS ORDERED: epoetin 20,000 units/ml inj IV ONE (09:25)
[2018-06-20] MEDS ORDERED: albumin (Human) 5% 250ml 250 ML IV PRN (09:25)
[2018-06-20] MEDS ORDERED: heparin 1,000 units/ml 10ml inj HE ONE ×2 (09:30)
--- NOTE | 2018-06-20 10:07 | NUR ---
Sarai from radiology came up and said they will not be doing the lumbar puncture today and probably not tomorrow. paged DR. SIMMONS to let him know. PAGER ID: [phone] MESSAGE: RE: Hetal Pappas, [facility] [id number]. Sarai from radiology said they will not be doing the lumbar puncture today due to pt receiving heparin today during dialysis & they are not confident in pt's ability to be still during procedure.
--- NOTE | 2018-06-20 10:14 | NUR ---
Messaged Dr SIMMONS to renew restraint order. PAGER ID: [phone] MESSAGE: RE: Hetal Mian, U [id number]. Can you please renew her restraint order? Thank you. Earline CASTREJON
[2018-06-20 11:00] VITALS: BP 98/85
--- NOTE | 2018-06-20 13:58 | NUR ---
Sent page to Dr. Santana: PAGER ID: [phone] MESSAGE: [id number] Hetal Pappas: Can we renew the orders for Matthews, Ativan, and Geodon? Their stop date was today at 1346. Thanks, Sis [phone]
[2018-06-20 15:49] VITALS: BP 127/94
[2018-06-20] MEDS: QUEtiapine 25mg tablet CORPAK SCH (17:27)
--- NOTE | 2018-06-20 17:58 | NUR ---
RN ORIENTATION documentation: I have reviewed and agree with all interventions, assessments performed and documented by LUCÍA CORREA.
--- NOTE | 2018-06-20 18:32 | NUR ---
Problems reprioritized. Patient report given, questions answered & plan of care reviewed with LUCÍA LEUNG.
[2018-06-20 19:00] VITALS: BP 129/63
[2018-06-20] MEDS: insulin glargine (Lantus) pen - multi-dose SQ SCH (20:02)
[2018-06-20 23:00] VITALS: BP 109/89
--- NOTE | 2018-06-20 23:54 | NUR ---
Patient crying out in pain. She has right shoulder and left knee fractures. Pain medication was DC'd by . Called Marlo Damian NP and was given an order for hydrocodone.
[2018-06-21] MEDS: diltiazem 30mg tablet CORPAK SCH ×4 (02:01→20:19)
[2018-06-21] MEDS: insulin regular, human vial - multi-dose SQ SCH ×4 (02:03→20:57)
[2018-06-21 03:00] VITALS: BP 110/66
[2018-06-21] MEDS: VANCOMYCIN LEVEL IV SCH (03:59)
[2018-06-21 05:01] LABS: BASOPHILS % (AUTO) 0 % (0-1); EOSINOPHILS # (AUTO) 0.6 X10'3 (0-0.9); EOSINOPHILS % (AUTO) 3.9 % (0-6); HEMATOCRIT 24.5 % (35.0-45.0); HEMOGLOBIN 8.1 g/dl (12.0-16.0); LYMPHOCYTES # (AUTO) 1.1 X10'3 (1.1-4.8); LYMPHOCYTES % (AUTO) 7.3 % (21-51); MEAN CORPUSCULAR HEMOGLOBIN 30.2 PG (27.0-31.0); MEAN CORPUSCULAR HGB CONC 33.1 g/dL (33.0-36.5); MEAN CORPUSCULAR VOLUME 91.1 FL (78-98); MEAN PLATELET VOLUME 8.1 FL (7.4-10.4); MONOCYTES # (AUTO) 1.3 X10'3 (0-0.9); MONOCYTES % (AUTO) 8.3 % (2-12); NEUTROPHILS # (AUTO) 12.4 X10'3 (1.8-7.7); NEUTROPHILS % (AUTO) 80.5 % (42-75); PLATELET COUNT 282 X10'3 (140-440); RED BLOOD COUNT 2.68 X10'6 (4.20-5.60); RED CELL DISTRIBUTION WIDTH 15.1 % (11.5-14.5); WHITE BLOOD COUNT 15.4 X10'3 (4.5-11.0)
[2018-06-21 05:13] LABS: ALANINE AMINOTRANSFERASE 23 U/L (12-78); ALBUMIN 2.1 G/DL (3.4-5.0); ALBUMIN/GLOBULIN RATIO 0.6 (1.1-1.5); ALKALINE PHOSPHATASE 150 IU/L (46-116); ANION GAP 7 (8-16); ASPARTATE AMINO TRANSFERASE 22 U/L (10-37); BILIRUBIN,TOTAL 0.4 MG/DL (0.1-1.0); BLOOD UREA NITROGEN 53 MG/DL (7-18); BUN/CREATININE RATIO 14.1 (6.6-38.0); CALCIUM 8.5 MG/DL (8.5-10.1); CHLORIDE 100 MMOL/L (99-107); CREATININE 3.75 MG/DL (0.40-0.90); GLUCOSE 121 MG/DL (70-104); MAGNESIUM 2.3 MG/DL (1.5-2.4); PHOSPHORUS 1.3 MG/DL (2.3-4.5); SODIUM 137 MMOL/L (135-145); TOTAL CARBON DIOXIDE 30.3 MMOL/L (24-32); TOTAL PROTEIN 5.6 G/DL (6.4-8.2); VANCOMYCIN,RANDOM 10.2 UG/ML; eGFR 12 ML/MIN
--- NOTE | 2018-06-21 06:46 | NUR ---
Patient in room PCU 3028. I have received report from Gera CASTREJON and had the opportunity to ask questions and assume patient care.
[2018-06-21 07:07] VITALS: BP 122/38
[2018-06-21] MEDS: heparin, porcine 5000 units/ml vial SQ SCH ×2 (08:00→20:20)
[2018-06-21] MEDS: carVEDilol 12.5mg tablet CORPAK SCH ×2 (08:00→20:18)
[2018-06-21] MEDS: cefepime 1GM/NS ADD-VANTAGE 100 ML IV SCH (08:00)
[2018-06-21] MEDS ORDERED: heparin 1,000unit/ml 10ml vial 10 ML IV ONE (08:02)
[2018-06-21] MEDS ORDERED: normal saline 1000ml 250 ML IV PRN (08:02)
[2018-06-21] MEDS ORDERED: epoetin 20,000 units/ml inj IV ONE (08:05)
[2018-06-21] MEDS ORDERED: heparin 1,000 units/ml 10ml inj HE ONE ×2 (08:10)
[2018-06-21] MEDS ORDERED: vancomycin/NS 1 GM ADD-VANTAGE 250 ML X 1 DOSE IV ONE (08:15)
[2018-06-21] MEDS: atorvastatin 10mg tablet CORPAK SCH (08:28)
[2018-06-21] MEDS: minoxidil 2.5mg tablet CORPAK SCH ×2 (08:28→20:18)
[2018-06-21] MEDS: ferrous sulfate 300mg/5ml UD oral liquid CORPAK SCH ×2 (08:28→20:18)
[2018-06-21] MEDS: lactobacillus rhamnosus 10,000 MMU CELLS/CAPSULE CORPAK SCH ×2 (08:28→20:19)
[2018-06-21] MEDS: amiodarone 200mg tablet PO SCH ×2 (08:28→20:19)
--- NOTE | 2018-06-21 10:24 | NUR ---
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 Pt still requiring a sitter and restraints per MD progress notes. Benzodiazepines narcotics and antipsychotics have been stopped for now to see if pt improves per MD progress notes. Pt continues to tolerate TF at goal with low residuals 0-25 mL. LBM 2/3. Will continue to follow. Rec: 1. NGTF via corpak using Nepro at 45ml/hr goal; to provide 1080ml fluid, 788ml free water, 1944kcals, and 87g protein. Initiate at 20ml/hr and advance 20ml Q8 to goal as tolerated 2. Consider change to Vital AF at 65ml/hr per MD 3. prealbumin Q /, daily wts; water flush 200ml Q6 4. continue with mech soft thin liquid diet per MATERIAL FLOW ENGINEER; advance to CHO controlled as medically indicated 5. phos replacement per MD approval 6. routine bowel care Addendum: 06/21/18 at [address] Amended: Links added.
[2018-06-21 11:00] VITALS: BP 118/56
--- NOTE | 2018-06-21 11:07 | NUR ---
Paged DR Santana requesting a renewal for the restraint order. PAGER ID: [phone] MESSAGE: RE: Hetal Pappas. [facility] [id number]. Can you please renew the restraint order? It ends at 1434 today. Thank you. Jolanta CASTREJON
--- NOTE | 2018-06-21 11:20 | NUR ---
Iv in RLE went bad. Paged DR SIMMONS for new order for IV placement in lower extremity. PAGER ID: [phone] MESSAGE: RE: Hetal Pappas. [facility] [id number]. IV in RLE went bad. Can we get another order for an LE placement for IV? Thank you.--Jolanta CASTREJON [phone]
--- NOTE | 2018-06-21 13:18 | NUR ---
Placed a 20 G IV in RLE. Patent and flushed. Pt tolerated procedure well.
[2018-06-21 15:00] VITALS: BP 113/61
--- NOTE | 2018-06-21 15:56 | NUR ---
Paged Dr Santana regarding pt restraint order renewal. PAGER ID: [phone] MESSAGE: RE: Hetal Pappas. [facility] [id number] Can you please renew the restraint order for this pt? Thank you--Jolanta CASTREJON [phone] Addendum: 06/21/18 at 1639 by Jolanta Berry RN Restraint order renewed at 1600.
--- NOTE | 2018-06-21 18:02 | NUR ---
Orientee documentation: I have reviewed and agree with all interventions, assessments performed and documented by LUCÍA Stover.
--- NOTE | 2018-06-21 18:40 | NUR ---
Problems reprioritized. Patient report given, questions answered & plan of care reviewed with LUCÍA Grullon.
--- NOTE | 2018-06-21 18:58 | NUR ---
Patient in room PCU 3028. I have received report from Vijaya CASTREJON and had the opportunity to ask questions and assume patient care.
[2018-06-21 19:00] VITALS: BP 138/49
[2018-06-21] MEDS: QUEtiapine 25mg tablet CORPAK SCH (19:18)
[2018-06-21 20:04] LABS: ALBUMIN 2.3 G/DL (3.4-5.0); ANION GAP 6 (8-16); BLOOD UREA NITROGEN 19 MG/DL (7-18); BUN/CREATININE RATIO 10.6 (6.6-38.0); CALCIUM 8.3 MG/DL (8.5-10.1); CHLORIDE 99 MMOL/L (99-107); CREATININE 1.79 MG/DL (0.40-0.90); GLUCOSE 175 MG/DL (70-104); POTASSIUM 3.9 MMOL/L (3.5-5.1); SODIUM 136 MMOL/L (135-145); TOTAL CARBON DIOXIDE 30.7 MMOL/L (24-32); eGFR 28 ML/MIN
--- NOTE | 2018-06-21 20:16 | NUR ---
spoke with pharmaist he stated it was ok to crush pts cardizem
[2018-06-21] MEDS: insulin glargine (Lantus) pen - multi-dose SQ SCH (20:58)
[2018-06-21 23:04] VITALS: BP 92/36
[2018-06-21 23:35] LABS: ABG BASE EXCESS 4.9 mmol/L (-2.0-3.0); ABG HCO3 27.5 mmol/L (22.0-26.0); ABG OXYGEN SATURATION 94.1 % (95-98); ABG PCO2 (T) 32.9 mmHg (32.0-45.0); ABG PO2 (T) 64.7 mmHg (83-108); ALLEN'S TEST Positive; FCOHb 1.2 % (0.5-1.5); FMetHb 0.3 % (0.3-1.12); FO2Hb 92.7 % (94-100); PATIENT TEMPERATURE 37.3; RESPIRATORY RATE (OBSERVED) 16 b/min; TOTAL HEMOGLOBIN 8.8 G/dl (12.0-16.0)
[2018-06-22] VITALS (7 sets, daily range): BP systolic 94–149; BP diastolic 51–77
[2018-06-22] MEDS: diltiazem 30mg tablet CORPAK SCH ×4 (02:22→20:45)
[2018-06-22] MEDS: insulin regular, human vial - multi-dose SQ SCH ×3 (02:24→20:32)
[2018-06-22] MEDS: VANCOMYCIN LEVEL IV SCH (03:00)
[2018-06-22 05:11] LABS: BASOPHILS % (AUTO) 0.1 % (0-1); EOSINOPHILS # (AUTO) 0.6 X10'3 (0-0.9); EOSINOPHILS % (AUTO) 2.8 % (0-6); HEMATOCRIT 24.9 % (35.0-45.0); HEMOGLOBIN 8.3 g/dl (12.0-16.0); LYMPHOCYTES # (AUTO) 1.4 X10'3 (1.1-4.8); LYMPHOCYTES % (AUTO) 6.8 % (21-51); MEAN CORPUSCULAR HEMOGLOBIN 30.1 PG (27.0-31.0); MEAN CORPUSCULAR HGB CONC 33.2 g/dL (33.0-36.5); MEAN CORPUSCULAR VOLUME 90.6 FL (78-98); MEAN PLATELET VOLUME 7.9 FL (7.4-10.4); MONOCYTES # (AUTO) 1.4 X10'3 (0-0.9); MONOCYTES % (AUTO) 6.9 % (2-12); NEUTROPHILS # (AUTO) 16.5 X10'3 (1.8-7.7); NEUTROPHILS % (AUTO) 83.4 % (42-75); PLATELET COUNT 320 X10'3 (140-440); RED BLOOD COUNT 2.75 X10'6 (4.20-5.60); RED CELL DISTRIBUTION WIDTH 15.2 % (11.5-14.5); WHITE BLOOD COUNT 19.8 X10'3 (4.5-11.0)
[2018-06-22 05:32] LABS: ALANINE AMINOTRANSFERASE 24 U/L (12-78); ALBUMIN 2.1 G/DL (3.4-5.0); ALBUMIN/GLOBULIN RATIO 0.6 (1.1-1.5); ALKALINE PHOSPHATASE 136 IU/L (46-116); ANION GAP 7 (8-16); ASPARTATE AMINO TRANSFERASE 20 U/L (10-37); BILIRUBIN,TOTAL 0.5 MG/DL (0.1-1.0); BLOOD UREA NITROGEN 32 MG/DL (7-18); BUN/CREATININE RATIO 11.6 (6.6-38.0); CALCIUM 8.7 MG/DL (8.5-10.1); CHLORIDE 100 MMOL/L (99-107); CREATININE 2.77 MG/DL (0.40-0.90); GLUCOSE 82 MG/DL (70-104); MAGNESIUM 2.2 MG/DL (1.5-2.4); POTASSIUM 3.9 MMOL/L (3.5-5.1); PREALBUMIN 14.3 MG/DL (19-36); SODIUM 139 MMOL/L (135-145); TOTAL CARBON DIOXIDE 31.6 MMOL/L (24-32); TOTAL PROTEIN 5.9 G/DL (6.4-8.2); VANCOMYCIN,RANDOM 17.1 UG/ML; eGFR 17 ML/MIN
--- NOTE | 2018-06-22 06:12 | NUR ---
Problems reprioritized. Patient report given, questions answered & plan of care reviewed with Jovana CASTREJON and Doris CASTREJON.
[2018-06-22 06:15] LABS: PHOSPHORUS 1.1 MG/DL (2.3-4.5)
--- NOTE | 2018-06-22 07:06 | NUR ---
PAGER ID: [phone] MESSAGE: Doris CASTREJON [phone] [id number] Jovita Pappas Pt has phos of 1.1, down from 1.3 yesterday. Thank you
[2018-06-22] MEDS: cefepime 1GM/NS ADD-VANTAGE 100 ML IV SCH (08:12)
[2018-06-22] MEDS: ferrous sulfate 300mg/5ml UD oral liquid CORPAK SCH ×2 (08:12→20:44)
[2018-06-22] MEDS: heparin, porcine 5000 units/ml vial SQ SCH ×2 (08:13→20:41)
[2018-06-22] MEDS: atorvastatin 10mg tablet CORPAK SCH (08:13)
[2018-06-22] MEDS: amiodarone 200mg tablet PO SCH ×2 (08:13→20:44)
[2018-06-22] MEDS: minoxidil 2.5mg tablet CORPAK SCH ×3 (08:14→20:42)
[2018-06-22] MEDS: lactobacillus rhamnosus 10,000 MMU CELLS/CAPSULE CORPAK SCH ×2 (08:14→20:44)
[2018-06-22] MEDS: carVEDilol 12.5mg tablet CORPAK SCH ×2 (09:27→20:42)
[2018-06-22] MEDS: piperacillin/tazo 3.375gm/50ml 50 ML IV SCH ×2 (10:08→20:44)
--- NOTE | 2018-06-22 10:36 | NUR ---
PAGER ID: [phone] MESSAGE: Doris CASTREJON [phone]. [id number] Jovita Pappas Pt. BP of 95/36(51), HR 84. BP trending down, was told this occurred yesterday. Just wanted to let you know. Thank you
[2018-06-22] MEDS: diatr meglu/diatrizoate 30ml oral sol.-(3 dose) bottle PO SCH ×3 (11:11→17:09)
[2018-06-22] MEDS ORDERED: normal saline 250ml IV soln 250 ML IV ONE (12:05)
--- NOTE | 2018-06-22 12:19 | NUR ---
PAGER ID: [phone] MESSAGE: Doris CASTREJON [id number] Jovita Pappas Procalcitonin result of 1.63, previous level was 0.20 on 06/07. Just wanted to let you know. Thank you.
--- NOTE | 2018-06-22 14:33 | NUR ---
Reassessment:Pt triggered w/ jody of 12, pt is w/ no documented wounds. , Pt is AO x2. Pt is receiving Nepro 45ml/hr . Per MD note pt is tolerating TF well, which is evident with gastric residuals of 10ml. LBM 2/3. Will continue to monitor. Addendum: 06/22/18 at [address] Amended: Links added. Addendum: 06/22/18 at [address] I have reviewed and agree with note by Web Worker. Aleena Johnson RD
[2018-06-22] MEDS ORDERED: polyethylene glycol 3350 17gm powd pack PO ONE (16:00)
--- NOTE | 2018-06-22 17:15 | NUR ---
Last dose of gastrofin administered, pt to CT on r in stable condition. Off unit at this time.
[2018-06-22] MEDS: QUEtiapine 25mg tablet CORPAK SCH (18:31)
--- NOTE | 2018-06-22 18:58 | NUR ---
Patient in room PCU 3028. I have received report from Seda Whaley and SEDA George and had the opportunity to ask questions and assume patient care.
[2018-06-22] MEDS: insulin glargine (Lantus) pen - multi-dose SQ SCH (20:35)
--- NOTE | 2018-06-22 20:47 | NUR ---
I pulled out a carvedilol tablet, but when I went to scan it, there was no pill inside the package. Therefore I had to take out another carvedilol packet in order to give her the mdd
[2018-06-22] MEDS ORDERED: LORazepam 2 mg/ml vial IV ONE (21:10)
[2018-06-23 02:00] VITALS: BP 113/36
[2018-06-23] MEDS: diltiazem 30mg tablet CORPAK SCH ×4 (02:16→21:28)
[2018-06-23] MEDS: insulin regular, human vial - multi-dose SQ SCH ×2 (02:39→09:14)
[2018-06-23] MEDS: VANCOMYCIN LEVEL IV SCH (03:00)
[2018-06-23] MEDS: acetaminophen 325mg tablet CORPAK PRN (03:58)
[2018-06-23 05:51] LABS: BASOPHILS % (AUTO) 0.1 % (0-1); EOSINOPHILS # (AUTO) 0.6 X10'3 (0-0.9); EOSINOPHILS % (AUTO) 3.4 % (0-6); HEMATOCRIT 23.2 % (35.0-45.0); HEMOGLOBIN 7.6 g/dl (12.0-16.0); LYMPHOCYTES # (AUTO) 1.4 X10'3 (1.1-4.8); LYMPHOCYTES % (AUTO) 7.4 % (21-51); MEAN CORPUSCULAR HEMOGLOBIN 29.7 PG (27.0-31.0); MEAN CORPUSCULAR HGB CONC 32.8 g/dL (33.0-36.5); MEAN CORPUSCULAR VOLUME 90.5 FL (78-98); MEAN PLATELET VOLUME 7.8 FL (7.4-10.4); MONOCYTES # (AUTO) 1.2 X10'3 (0-0.9); MONOCYTES % (AUTO) 6.4 % (2-12); NEUTROPHILS # (AUTO) 15.1 X10'3 (1.8-7.7); NEUTROPHILS % (AUTO) 82.7 % (42-75); PLATELET COUNT 305 X10'3 (140-440); RED BLOOD COUNT 2.57 X10'6 (4.20-5.60); WHITE BLOOD COUNT 18.3 X10'3 (4.5-11.0)
[2018-06-23 05:58] LABS: ALANINE AMINOTRANSFERASE 24 U/L (12-78); ALBUMIN/GLOBULIN RATIO 0.5 (1.1-1.5); ALKALINE PHOSPHATASE 108 IU/L (46-116); ANION GAP 8 (8-16); ASPARTATE AMINO TRANSFERASE 13 U/L (10-37); BILIRUBIN,TOTAL 0.6 MG/DL (0.1-1.0); BLOOD UREA NITROGEN 60 MG/DL (7-18); CALCIUM 8.5 MG/DL (8.5-10.1); CHLORIDE 99 MMOL/L (99-107); CREATININE 4.62 MG/DL (0.40-0.90); GLUCOSE 93 MG/DL (70-104); MAGNESIUM 2.5 MG/DL (1.5-2.4); PHOSPHORUS 2.3 MG/DL (2.3-4.5); POTASSIUM 4.7 MMOL/L (3.5-5.1); SODIUM 137 MMOL/L (135-145); TOTAL CARBON DIOXIDE 29.6 MMOL/L (24-32); TOTAL PROTEIN 5.7 G/DL (6.4-8.2); VANCOMYCIN,RANDOM 16.6 UG/ML; eGFR 9 ML/MIN
[2018-06-23 06:00] VITALS: BP 113/35
--- NOTE | 2018-06-23 06:15 | NUR ---
Patient in room PCU 3028. I have received report from LUCÍA Araujo and had the opportunity to ask questions and assume patient care.
--- NOTE | 2018-06-23 06:20 | NUR ---
Problems reprioritized. Patient report given, questions answered & plan of care reviewed with LUCÍA Whaley and LUCÍA George.
[2018-06-23 07:02] LABS: ANISOCYTOSIS 1+; PLATELET ESTIMATE NORMAL
[2018-06-23 07:03] LABS: HYPOCHROMASIA 1+; POIKILOCYTOSIS FEW; POLYCHROMASIA 1+; TARGET CELLS FEW
[2018-06-23] MEDS: minoxidil 2.5mg tablet CORPAK SCH ×2 (08:00→21:25)
[2018-06-23] MEDS: carVEDilol 12.5mg tablet CORPAK SCH ×2 (08:00→21:27)
[2018-06-23] MEDS: lactobacillus rhamnosus 10,000 MMU CELLS/CAPSULE CORPAK SCH ×2 (08:30→21:27)
[2018-06-23] MEDS: atorvastatin 10mg tablet CORPAK SCH (08:30)
[2018-06-23] MEDS: amiodarone 200mg tablet PO SCH ×2 (08:30→21:28)
[2018-06-23] MEDS: ferrous sulfate 300mg/5ml UD oral liquid CORPAK SCH ×2 (08:30→21:25)
[2018-06-23] MEDS: piperacillin/tazo 3.375gm/50ml 50 ML IV SCH ×2 (08:31→21:34)
[2018-06-23] MEDS: heparin, porcine 5000 units/ml vial SQ SCH ×2 (08:31→21:27)
[2018-06-23] MEDS ORDERED: heparin 1,000unit/ml 10ml vial 10 ML IV ONE (08:55)
[2018-06-23] MEDS ORDERED: normal saline 1000ml 250 ML IV PRN (08:55)
[2018-06-23] MEDS ORDERED: epoetin 20,000 units/ml inj IV ONE (08:55)
[2018-06-23] MEDS ORDERED: heparin 1,000 units/ml 10ml inj HE ONE ×2 (09:00)
[2018-06-23 10:16] LABS: CLARITY,URINE CLOUDY (Clear); COLOR,URINE YELLOW (Yellow); GLUCOSE, URINE 100 mg/dl (Neg); KETONES,URINE NEGATIVE (Neg); LEUKOCYTE ESTERASE ,URINE MODERATE (Neg); NITRITES, URINE NEGATIVE (Neg); OCCULT BLOOD,URINE MODERATE (Neg); PH,URINE 7.5 (4.8-8.0); PROTEIN,URINE >=300 mg/dl (Neg); UROBILINOGEN,URINE 0.2 E.U/dL (0.2-1.0)
[2018-06-23 10:33] LABS: UA COLLECTION TYPE STRAIGHT CATH
[2018-06-23 10:35] LABS: BACTERIA,URINE 3+ /HPF (Neg); MUCUS STRANDS FEW /LPF (Neg); RBC,URINE TNTC /HPF (0-2); SQUAMOUS EPITHELIAL CELL,UR MANY /LPF (FEW); WBC,URINE TNTC /HPF (0-4)
[2018-06-23 11:00] VITALS: BP 115/45
--- NOTE | 2018-06-23 12:53 | NUR ---
PAGER ID: [phone] MESSAGE: Doris CASTREJON [id number] Christopher Dubon. Could you renew restraint order for pt? Thank you.
[2018-06-23 15:00] VITALS: BP 98/55
[2018-06-23 16:08] LABS: OCCULT BLOOD STOOL NEGATIVE (Neg)
--- NOTE | 2018-06-23 16:45 | NUR ---
PAGER ID: [phone] MESSAGE: Doris CASTREJON [phone] [id number] Jovita Pappas: need renewal for restraint order, current order is . Pt needs to prevent removal of tunneled cath and NG. Thank you.
[2018-06-23 16:50] LABS: C DIFF ANTIGEN NEGATIVE (NEGATIVE); C DIFF SPECIMEN=DIARRHEA? ACCEPTABLE; C DIFFICILE TOXINS A&B NEGATIVE (Neg)
--- NOTE | 2018-06-23 18:30 | NUR ---
Patient in room PCU 3028. I have received report from Jovana CASTREJON, and had the opportunity to ask questions and assume patient care.
--- NOTE | 2018-06-23 18:30 | NUR ---
Patient in room PCU 3028. I have received report from LUCÍA Whaley and had the opportunity to ask questions and assume patient care.
[2018-06-23 19:00] VITALS: BP 120/47
[2018-06-23] MEDS: QUEtiapine 25mg tablet CORPAK SCH (21:27)
[2018-06-23] MEDS: insulin glargine (Lantus) pen - multi-dose SQ SCH (21:45)
[2018-06-23] MEDS: insulin Lispro (HumaLOG) vial - multi-dose SQ SCH (22:13)
[2018-06-23 23:00] VITALS: BP 135/51
[2018-06-24 03:00] VITALS: BP 114/40
[2018-06-24] MEDS: diltiazem 30mg tablet CORPAK SCH ×4 (03:34→21:22)
[2018-06-24 06:00] VITALS: BP 118/46
--- NOTE | 2018-06-24 06:00 | NUR ---
Patient in room PCU 3028. I have received report from Vijaya CASTREJON and had the opportunity to ask questions and assume patient care.
[2018-06-24 06:05] LABS: BASOPHILS % (AUTO) 0 % (0-1); EOSINOPHILS # (AUTO) 0.5 X10'3 (0-0.9); EOSINOPHILS % (AUTO) 3.6 % (0-6); HEMATOCRIT 24.9 % (35.0-45.0); HEMOGLOBIN 8.3 g/dl (12.0-16.0); LYMPHOCYTES # (AUTO) 1.4 X10'3 (1.1-4.8); LYMPHOCYTES % (AUTO) 9.1 % (21-51); MEAN CORPUSCULAR HEMOGLOBIN 30.2 PG (27.0-31.0); MEAN CORPUSCULAR HGB CONC 33.4 g/dL (33.0-36.5); MEAN CORPUSCULAR VOLUME 90.6 FL (78-98); MEAN PLATELET VOLUME 7.8 FL (7.4-10.4); MONOCYTES # (AUTO) 1.1 X10'3 (0-0.9); MONOCYTES % (AUTO) 7.2 % (2-12); NEUTROPHILS % (AUTO) 80.1 % (42-75); PLATELET COUNT 368 X10'3 (140-440); RED BLOOD COUNT 2.74 X10'6 (4.20-5.60); RED CELL DISTRIBUTION WIDTH 15.3 % (11.5-14.5)
--- NOTE | 2018-06-24 06:22 | NUR ---
Problems reprioritized. Patient report given, questions answered & plan of care reviewed with LUCÍA Whaley.
[2018-06-24 06:30] LABS: ALANINE AMINOTRANSFERASE 27 U/L (12-78); ALBUMIN 2.1 G/DL (3.4-5.0); ALBUMIN/GLOBULIN RATIO 0.5 (1.1-1.5); ALKALINE PHOSPHATASE 113 IU/L (46-116); ANION GAP 9 (8-16); ASPARTATE AMINO TRANSFERASE 21 U/L (10-37); BILIRUBIN,TOTAL 0.6 MG/DL (0.1-1.0); BLOOD UREA NITROGEN 28 MG/DL (7-18); CALCIUM 8.4 MG/DL (8.5-10.1); CHLORIDE 99 MMOL/L (99-107); CREATININE 2.79 MG/DL (0.40-0.90); GLUCOSE 145 MG/DL (70-104); MAGNESIUM 2.2 MG/DL (1.5-2.4); PHOSPHORUS 3.1 MG/DL (2.3-4.5); POTASSIUM 4.5 MMOL/L (3.5-5.1); SODIUM 138 MMOL/L (135-145); TOTAL CARBON DIOXIDE 29.6 MMOL/L (24-32); TOTAL PROTEIN 6.1 G/DL (6.4-8.2); eGFR 17 ML/MIN
--- NOTE | 2018-06-24 07:05 | NUR ---
Orientee documentation: I have reviewed and agree with all interventions, assessments performed and documented by LUCÍA Meléndez. Orientee Medication Administration: For this medication-pass time frame, all medication were reviewed, dispensed, administered and documented per hospital policy by LUCÍA Meléndez.
[2018-06-24] MEDS: ferrous sulfate 300mg/5ml UD oral liquid CORPAK SCH ×2 (08:41→21:23)
[2018-06-24] MEDS: heparin, porcine 5000 units/ml vial SQ SCH ×2 (08:41→21:20)
[2018-06-24] MEDS: amiodarone 200mg tablet PO SCH ×2 (08:42→21:20)
[2018-06-24] MEDS: piperacillin/tazo 3.375gm/50ml 50 ML IV SCH ×2 (08:42→21:24)
[2018-06-24] MEDS: atorvastatin 10mg tablet CORPAK SCH (08:42)
[2018-06-24] MEDS: lactobacillus rhamnosus 10,000 MMU CELLS/CAPSULE CORPAK SCH ×2 (08:42→21:23)
[2018-06-24] MEDS: insulin Lispro (HumaLOG) vial - multi-dose SQ SCH (09:22)
[2018-06-24] MEDS ORDERED: acetaminophen 325mg tablet PO SCH (10:30)
[2018-06-24 11:00] VITALS: BP 114/53
[2018-06-24] MEDS: minoxidil 2.5mg tablet CORPAK SCH ×2 (11:20→21:23)
[2018-06-24] MEDS: carVEDilol 12.5mg tablet CORPAK SCH ×2 (11:21→21:23)
[2018-06-24] MEDS: acetaminophen 325mg tablet CORPAK SCH ×2 (11:43→21:22)
[2018-06-24 15:00] VITALS: BP 133/61
--- NOTE | 2018-06-24 16:48 | NUR ---
Spoke with Ms. Messina the PA, who instructed me to remove pt.'s riley. Once the riley is removed, I was to do q-shift bladder scans and straight cath if residual was greater than 400. Dr. Santana made his rounds soon after that and I informed him of Mayuri's orders and he instructed me to leave the riley catheter in.
--- NOTE | 2018-06-24 18:00 | NUR ---
Patient in room PCU 3028. I have received report from Jovana CASTREJON and had the opportunity to ask questions and assume patient care.
[2018-06-24] MEDS: QUEtiapine 25mg tablet CORPAK SCH (21:23)
[2018-06-24] MEDS: insulin glargine (Lantus) pen - multi-dose SQ SCH (22:38)
[2018-06-24] MEDS: insulin regular, human vial - multi-dose SQ SCH (22:43)
[2018-06-25] MEDS: diltiazem 30mg tablet CORPAK SCH ×4 (02:00→19:28)
[2018-06-25] MEDS: insulin regular, human vial - multi-dose SQ SCH ×3 (03:21→20:21)
[2018-06-25] MEDS: acetaminophen 325mg tablet CORPAK SCH ×4 (03:37→19:30)
--- NOTE | 2018-06-25 06:00 | NUR ---
Problems reprioritized. Patient report given, questions answered & plan of care reviewed with Aminta CASTREJON.
[2018-06-25 06:10] LABS: BASOPHILS % (AUTO) 0.1 % (0-1); EOSINOPHILS # (AUTO) 0.6 X10'3 (0-0.9); EOSINOPHILS % (AUTO) 4.5 % (0-6); HEMATOCRIT 24.7 % (35.0-45.0); LYMPHOCYTES # (AUTO) 1.2 X10'3 (1.1-4.8); LYMPHOCYTES % (AUTO) 8.5 % (21-51); MEAN CORPUSCULAR HEMOGLOBIN 29.2 PG (27.0-31.0); MEAN CORPUSCULAR HGB CONC 32.3 g/dL (33.0-36.5); MEAN CORPUSCULAR VOLUME 90.5 FL (78-98); MEAN PLATELET VOLUME 7.5 FL (7.4-10.4); MONOCYTES # (AUTO) 0.7 X10'3 (0-0.9); MONOCYTES % (AUTO) 5.4 % (2-12); NEUTROPHILS # (AUTO) 11.2 X10'3 (1.8-7.7); NEUTROPHILS % (AUTO) 81.5 % (42-75); PLATELET COUNT 389 X10'3 (140-440); RED BLOOD COUNT 2.73 X10'6 (4.20-5.60); RED CELL DISTRIBUTION WIDTH 14.7 % (11.5-14.5); WHITE BLOOD COUNT 13.7 X10'3 (4.5-11.0)
[2018-06-25 06:18] LABS: ALANINE AMINOTRANSFERASE 28 U/L (12-78); ALBUMIN/GLOBULIN RATIO 0.5 (1.1-1.5); ALKALINE PHOSPHATASE 105 IU/L (46-116); ANION GAP 10 (8-16); ASPARTATE AMINO TRANSFERASE 17 U/L (10-37); BILIRUBIN,TOTAL 0.5 MG/DL (0.1-1.0); BLOOD UREA NITROGEN 48 MG/DL (7-18); BUN/CREATININE RATIO 10.1 (6.6-38.0); CALCIUM 8.3 MG/DL (8.5-10.1); CHLORIDE 99 MMOL/L (99-107); CREATININE 4.77 MG/DL (0.40-0.90); GLUCOSE 153 MG/DL (70-104); MAGNESIUM 2.3 MG/DL (1.5-2.4); PHOSPHORUS 3.9 MG/DL (2.3-4.5); POTASSIUM 4.3 MMOL/L (3.5-5.1); SODIUM 138 MMOL/L (135-145); TOTAL CARBON DIOXIDE 28.8 MMOL/L (24-32); TOTAL PROTEIN 5.8 G/DL (6.4-8.2); eGFR 9 ML/MIN
--- NOTE | 2018-06-25 06:27 | NUR ---
Patient in room PCU 3028. I have received report from Ursula CASTREJON and had the opportunity to ask questions and assume patient care. Pt resting at this time, will continue to monitor.
[2018-06-25 07:00] VITALS: BP 105/53
[2018-06-25] MEDS: atorvastatin 10mg tablet CORPAK SCH (09:09)
[2018-06-25] MEDS: lactobacillus rhamnosus 10,000 MMU CELLS/CAPSULE CORPAK SCH ×2 (09:09→19:28)
[2018-06-25] MEDS: ferrous sulfate 300mg/5ml UD oral liquid CORPAK SCH ×2 (09:09→19:28)
[2018-06-25] MEDS: carVEDilol 12.5mg tablet CORPAK SCH ×2 (09:09→19:28)
[2018-06-25] MEDS: amiodarone 200mg tablet PO SCH ×2 (09:09→19:29)
[2018-06-25] MEDS: minoxidil 2.5mg tablet CORPAK SCH ×2 (09:10→20:12)
[2018-06-25] MEDS: heparin, porcine 5000 units/ml vial SQ SCH ×2 (09:10→19:30)
[2018-06-25] MEDS: piperacillin/tazo 3.375gm/50ml 50 ML IV SCH ×2 (09:11→19:30)
[2018-06-25 11:00] VITALS: BP 112/65
--- NOTE | 2018-06-25 11:31 | NUR ---
PAGER ID: [phone] MESSAGE: Roberth 385Mian Rasmussen. Pt having loose stools and has been cleaned up 3 times in 10 min. Pt has skin breakdown due to stools can I have an order for a rectal tube. Aminta [phone]
[2018-06-25] MEDS ORDERED: normal saline 1000ml 250 ML IV PRN (13:12)
[2018-06-25] MEDS ORDERED: heparin 1,000unit/ml 10ml vial 10 ML IV ONE (13:12)
[2018-06-25] MEDS ORDERED: epoetin 20,000 units/ml inj IV ONE (13:15)
[2018-06-25] MEDS ORDERED: heparin 1,000 units/ml 10ml inj HE ONE ×2 (13:20)
[2018-06-25 15:00] VITALS: BP 125/43
[2018-06-25] MEDS: insulin Lispro (HumaLOG) vial - multi-dose SQ SCH (15:04)
--- NOTE | 2018-06-25 15:37 | NUR ---
reassessment: Pt changed to nocturnal feeds in hopes to increase PO per NON LICENSED OPERATOR. TERESITA d/w NON LICENSED OPERATOR and MD who both agree to return to continuous 24hr NG feeds given pt PO 0-25% meals today. TERESITA d/w RN to restart at 45ml/hr goal since pt previously tolerating. LBM 06/24. If to remain full code or DNR may benefit from PEG tube in order to meet long-term needs. Rec: 1. NGTF via corpak using Nepro at 45ml/hr goal; to provide 1080ml fluid, 788ml free water, 1944kcals, and 87g protein. Initiate at 20ml/hr and advance 20ml Q8 to goal as tolerated 2. Consider change to Vital AF at 65ml/hr per MD 3. prealbumin Q /, daily wts; water flush 200ml Q6 4. advance to CHO controlled/mechanical soft per POCKET CLOSER 5. routine bowel care Addendum: 06/25/18 at [address] Amended: Links added.
[2018-06-25] MEDS ORDERED: loperamide 2mg capsule PO ONE (16:35)
--- NOTE | 2018-06-25 16:47 | NUR ---
dialysis Hemodialysis charge entered by Erica Hodges in error. please disregard
--- NOTE | 2018-06-25 17:54 | NUR ---
Pt has order for continuous tube feeding. There is no tube feeding available on the unit. Called [employer] and was unable to reach them. Faxed down a request to dietary for tube feed. Will continue to monitor and check for the arrival of tube feed.
[2018-06-25 18:00] VITALS: BP 111/45
--- NOTE | 2018-06-25 18:24 | NUR ---
Problems reprioritized. Patient report given, questions answered & plan of care reviewed with Alessandro CASTREJON. Patient stable at transfer of care.
--- NOTE | 2018-06-25 18:30 | NUR ---
Patient in room U 3028. I have received report from Aminta CASTREJON and had the opportunity to ask questions and assume patient care. Pt is in bed, restraints on, no s/s of distress. sitter is in room.
[2018-06-25] MEDS: QUEtiapine 25mg tablet CORPAK SCH (19:29)
[2018-06-25] MEDS: insulin glargine (Lantus) pen - multi-dose SQ SCH (21:42)
[2018-06-25 22:00] VITALS: BP 110/46
--- NOTE | 2018-06-25 22:00 | NUR ---
Patient started on Glucerna 1.2 tube feed tonight, sent from dietary per [facility] as dietary did not have nepro available.
[2018-06-26 02:00] VITALS: BP 116/50
[2018-06-26] MEDS: diltiazem 30mg tablet CORPAK SCH ×4 (02:02→19:23)
[2018-06-26] MEDS: acetaminophen 325mg tablet CORPAK SCH ×4 (02:03→19:25)
[2018-06-26] MEDS: insulin regular, human vial - multi-dose SQ SCH ×2 (02:06→19:32)
[2018-06-26 05:24] LABS: BASOPHILS % (AUTO) 0.1 % (0-1); EOSINOPHILS # (AUTO) 0.7 X10'3 (0-0.9); EOSINOPHILS % (AUTO) 4.7 % (0-6); HEMATOCRIT 25.8 % (35.0-45.0); HEMOGLOBIN 8.5 g/dl (12.0-16.0); LYMPHOCYTES # (AUTO) 1.4 X10'3 (1.1-4.8); LYMPHOCYTES % (AUTO) 9.5 % (21-51); MEAN CORPUSCULAR VOLUME 90.8 FL (78-98); MEAN PLATELET VOLUME 7.3 FL (7.4-10.4); MONOCYTES # (AUTO) 0.8 X10'3 (0-0.9); MONOCYTES % (AUTO) 5.5 % (2-12); NEUTROPHILS # (AUTO) 11.5 X10'3 (1.8-7.7); NEUTROPHILS % (AUTO) 80.2 % (42-75); PLATELET COUNT 428 X10'3 (140-440); RED BLOOD COUNT 2.84 X10'6 (4.20-5.60); RED CELL DISTRIBUTION WIDTH 15.3 % (11.5-14.5); WHITE BLOOD COUNT 14.4 X10'3 (4.5-11.0)
[2018-06-26 05:46] LABS: ALANINE AMINOTRANSFERASE 26 U/L (12-78); ALBUMIN/GLOBULIN RATIO 0.5 (1.1-1.5); ALKALINE PHOSPHATASE 101 IU/L (46-116); ANION GAP 9 (8-16); ASPARTATE AMINO TRANSFERASE 19 U/L (10-37); BILIRUBIN,TOTAL 0.4 MG/DL (0.1-1.0); BLOOD UREA NITROGEN 18 MG/DL (7-18); BUN/CREATININE RATIO 6.5 (6.6-38.0); CALCIUM 8.4 MG/DL (8.5-10.1); CHLORIDE 100 MMOL/L (99-107); CREATININE 2.78 MG/DL (0.40-0.90); GLUCOSE 93 MG/DL (70-104); MAGNESIUM 2.1 MG/DL (1.5-2.4); POTASSIUM 3.9 MMOL/L (3.5-5.1); PREALBUMIN 14.8 MG/DL (19-36); SODIUM 139 MMOL/L (135-145); TOTAL CARBON DIOXIDE 30.4 MMOL/L (24-32); TOTAL PROTEIN 6.2 G/DL (6.4-8.2); eGFR 17 ML/MIN
[2018-06-26 06:00] VITALS: BP 126/53
--- NOTE | 2018-06-26 06:38 | NUR ---
Problems reprioritized. Patient report given, questions answered & plan of care reviewed with Art Rn.
[2018-06-26] MEDS: piperacillin/tazo 3.375gm/50ml 50 ML IV SCH ×2 (08:05→19:27)
[2018-06-26] MEDS: ferrous sulfate 300mg/5ml UD oral liquid CORPAK SCH ×2 (08:05→19:24)
[2018-06-26] MEDS: heparin, porcine 5000 units/ml vial SQ SCH ×2 (08:05→19:26)
[2018-06-26] MEDS: amiodarone 200mg tablet PO SCH ×2 (08:05→19:25)
[2018-06-26] MEDS: minoxidil 2.5mg tablet CORPAK SCH ×2 (08:06→19:24)
[2018-06-26] MEDS: atorvastatin 10mg tablet CORPAK SCH (08:06)
[2018-06-26] MEDS: carVEDilol 12.5mg tablet CORPAK SCH ×2 (08:06→19:24)
[2018-06-26] MEDS: lactobacillus rhamnosus 10,000 MMU CELLS/CAPSULE CORPAK SCH ×2 (08:06→19:24)
[2018-06-26] MEDS: insulin Lispro (HumaLOG) vial - multi-dose SQ SCH ×2 (09:00→14:19)
[2018-06-26] MEDS ORDERED: loperamide 2mg capsule PO PRN (09:30)
--- NOTE | 2018-06-26 11:39 | NUR ---
PAGER ID: [phone] MESSAGE: Dr. Santana, pt Mian is quite anxious and tearful. Can I get an order for some Ativan? Art, [phone]
[2018-06-26 14:34] VITALS: BP 99/41
[2018-06-26 15:00] VITALS: BP 109/35
[2018-06-26 18:00] VITALS: BP 134/68
--- NOTE | 2018-06-26 19:00 | NUR ---
REPORT REC'D FROM LUCÍA KUO. PT IS COMBATIVE, PULLING OUT LINES, REFUSING HER ROLL FORMING MACHINE OPERATOR.
[2018-06-26] MEDS: QUEtiapine 25mg tablet CORPAK SCH (19:23)
[2018-06-26 22:00] VITALS: BP 96/45
[2018-06-26] MEDS: insulin glargine (Lantus) pen - multi-dose SQ SCH (22:17)
--- NOTE | 2018-06-26 22:50 | NUR ---
DRESSING CHANGE TO DIALYSIS PORT. PT PROCEEDED TO TAKE IT OFF, NEW DSG APPLIED. PULLED OFF TELE MONITOR. RM CHANGE.
[2018-06-27 02:00] VITALS: BP 146/44
[2018-06-27] MEDS: acetaminophen 325mg tablet CORPAK SCH ×4 (02:30→19:21)
[2018-06-27] MEDS: diltiazem 30mg tablet CORPAK SCH ×4 (02:30→19:23)
--- NOTE | 2018-06-27 06:00 | NUR ---
Patient in room PCU 3022. I have received report from Valeri CASTREJON and had the opportunity to ask questions and assume patient care.
--- NOTE | 2018-06-27 06:16 | NUR ---
REPORT GIVEN TO LUCÍA ACOSTA.
[2018-06-27 06:58] VITALS: BP 95/30
[2018-06-27] MEDS: piperacillin/tazo 3.375gm/50ml 50 ML IV SCH ×2 (07:20→19:30)
[2018-06-27] MEDS: atorvastatin 10mg tablet CORPAK SCH (07:33)
[2018-06-27] MEDS: ferrous sulfate 300mg/5ml UD oral liquid CORPAK SCH ×2 (07:33→19:21)
[2018-06-27] MEDS: lactobacillus rhamnosus 10,000 MMU CELLS/CAPSULE CORPAK SCH ×2 (07:33→19:22)
[2018-06-27] MEDS: amiodarone 200mg tablet PO SCH ×2 (07:34→19:24)
[2018-06-27] MEDS: minoxidil 2.5mg tablet CORPAK SCH ×2 (07:34→19:22)
[2018-06-27] MEDS: carVEDilol 12.5mg tablet CORPAK SCH ×2 (07:34→19:23)
[2018-06-27] MEDS: heparin, porcine 5000 units/ml vial SQ SCH ×2 (07:35→19:30)
[2018-06-27 07:50] LABS: BASOPHILS % (AUTO) 0.1 % (0-1); EOSINOPHILS # (AUTO) 0.8 X10'3 (0-0.9); HEMATOCRIT 26.2 % (35.0-45.0); HEMOGLOBIN 8.6 g/dl (12.0-16.0); LYMPHOCYTES # (AUTO) 1.3 X10'3 (1.1-4.8); LYMPHOCYTES % (AUTO) 8.2 % (21-51); MEAN CORPUSCULAR HEMOGLOBIN 29.7 PG (27.0-31.0); MEAN CORPUSCULAR HGB CONC 32.7 g/dL (33.0-36.5); MEAN CORPUSCULAR VOLUME 90.7 FL (78-98); MONOCYTES # (AUTO) 0.8 X10'3 (0-0.9); MONOCYTES % (AUTO) 5.2 % (2-12); NEUTROPHILS # (AUTO) 12.8 X10'3 (1.8-7.7); NEUTROPHILS % (AUTO) 81.5 % (42-75); PLATELET COUNT 456 X10'3 (140-440); RED BLOOD COUNT 2.89 X10'6 (4.20-5.60); RED CELL DISTRIBUTION WIDTH 15.4 % (11.5-14.5); WHITE BLOOD COUNT 15.8 X10'3 (4.5-11.0)
[2018-06-27 08:04] LABS: ALANINE AMINOTRANSFERASE 19 U/L (12-78); ALBUMIN/GLOBULIN RATIO 0.5 (1.1-1.5); ALKALINE PHOSPHATASE 90 IU/L (46-116); ANION GAP 11 (8-16); ASPARTATE AMINO TRANSFERASE 14 U/L (10-37); BILIRUBIN,TOTAL 0.4 MG/DL (0.1-1.0); BLOOD UREA NITROGEN 37 MG/DL (7-18); BUN/CREATININE RATIO 7.4 (6.6-38.0); CALCIUM 8.4 MG/DL (8.5-10.1); CHLORIDE 98 MMOL/L (99-107); CREATININE 4.98 MG/DL (0.40-0.90); GLUCOSE 97 MG/DL (70-104); MAGNESIUM 2.2 MG/DL (1.5-2.4); PHOSPHORUS 6.1 MG/DL (2.3-4.5); POTASSIUM 4.6 MMOL/L (3.5-5.1); SODIUM 137 MMOL/L (135-145); TOTAL CARBON DIOXIDE 27.6 MMOL/L (24-32); TOTAL PROTEIN 6.1 G/DL (6.4-8.2); eGFR 9 ML/MIN
[2018-06-27] MEDS ORDERED: normal saline 1000ml 250 ML IV PRN (08:36)
[2018-06-27] MEDS ORDERED: heparin 1,000unit/ml 10ml vial 10 ML IV ONE (08:36)
[2018-06-27] MEDS ORDERED: epoetin 20,000 units/ml inj IV ONE (08:40)
[2018-06-27] MEDS ORDERED: heparin 1,000 units/ml 10ml inj HE ONE ×2 (08:40)
[2018-06-27] MEDS: acetaminophen 325mg tablet CORPAK PRN (10:48)
[2018-06-27 11:00] VITALS: BP 107/39
[2018-06-27 15:00] VITALS: BP 99/53
[2018-06-27 18:00] VITALS: BP 130/41
--- NOTE | 2018-06-27 18:30 | NUR ---
Problems reprioritized. Patient report given, questions answered & plan of care reviewed with Jenn CASTREJON.
--- NOTE | 2018-06-27 18:30 | NUR ---
Received report from LUCÍA Morris. Patient is awake and alert on room air, in no apparent distress. net finisher at bedside; patient receiving HD currently. Call light and items of frequent use within reach. Will continue to monitor.
[2018-06-27] MEDS: QUEtiapine 25mg tablet CORPAK SCH (19:22)
[2018-06-27] MEDS: insulin glargine (Lantus) pen - multi-dose SQ SCH (21:00)
[2018-06-27 22:00] VITALS: BP 151/57
[2018-06-28 02:00] VITALS: BP 123/49
[2018-06-28] MEDS: acetaminophen 325mg tablet CORPAK SCH ×5 (02:00→21:51)
[2018-06-28] MEDS: diltiazem 30mg tablet CORPAK SCH ×4 (02:00→21:53)
[2018-06-28 05:15] LABS: ALANINE AMINOTRANSFERASE 20 U/L (12-78); ALBUMIN 2.3 G/DL (3.4-5.0); ALBUMIN/GLOBULIN RATIO 0.5 (1.1-1.5); ALKALINE PHOSPHATASE 99 IU/L (46-116); ANION GAP 12 (8-16); ASPARTATE AMINO TRANSFERASE 16 U/L (10-37); BILIRUBIN,TOTAL 0.5 MG/DL (0.1-1.0); BLOOD UREA NITROGEN 15 MG/DL (7-18); BUN/CREATININE RATIO 5.2 (6.6-38.0); CALCIUM 8.6 MG/DL (8.5-10.1); CHLORIDE 98 MMOL/L (99-107); GLUCOSE 118 MG/DL (70-104); PHOSPHORUS 3.7 MG/DL (2.3-4.5); POTASSIUM 4.4 MMOL/L (3.5-5.1); SODIUM 137 MMOL/L (135-145); TOTAL CARBON DIOXIDE 27.4 MMOL/L (24-32); TOTAL PROTEIN 6.8 G/DL (6.4-8.2); eGFR 16 ML/MIN
[2018-06-28 05:49] LABS: BASOPHILS % (AUTO) 0 % (0-1); EOSINOPHILS # (AUTO) 0.5 X10'3 (0-0.9); EOSINOPHILS % (AUTO) 3.4 % (0-6); HEMATOCRIT 27.4 % (35.0-45.0); HEMOGLOBIN 9.1 g/dl (12.0-16.0); LYMPHOCYTES # (AUTO) 0.8 X10'3 (1.1-4.8); LYMPHOCYTES % (AUTO) 5.4 % (21-51); MEAN CORPUSCULAR HGB CONC 33.3 g/dL (33.0-36.5); MEAN CORPUSCULAR VOLUME 90.1 FL (78-98); MEAN PLATELET VOLUME 7.1 FL (7.4-10.4); MONOCYTES # (AUTO) 0.7 X10'3 (0-0.9); MONOCYTES % (AUTO) 4.5 % (2-12); NEUTROPHILS # (AUTO) 13.2 X10'3 (1.8-7.7); NEUTROPHILS % (AUTO) 86.7 % (42-75); PLATELET COUNT 488 X10'3 (140-440); RED BLOOD COUNT 3.04 X10'6 (4.20-5.60); RED CELL DISTRIBUTION WIDTH 15.3 % (11.5-14.5); WHITE BLOOD COUNT 15.2 X10'3 (4.5-11.0)
[2018-06-28 07:00] VITALS: BP 118/43
--- NOTE | 2018-06-28 07:07 | NUR ---
Problems reprioritized. Patient report given, questions answered & plan of care reviewed with LUCÍA Vergara.
[2018-06-28] MEDS: insulin Lispro (HumaLOG) vial - multi-dose SQ SCH ×2 (08:49→13:43)
[2018-06-28] MEDS: minoxidil 2.5mg tablet CORPAK SCH ×3 (08:51→21:53)
[2018-06-28] MEDS: amiodarone 200mg tablet PO SCH ×3 (08:51→21:54)
[2018-06-28] MEDS: lactobacillus rhamnosus 10,000 MMU CELLS/CAPSULE CORPAK SCH ×2 (08:51→22:00)
[2018-06-28] MEDS: carVEDilol 12.5mg tablet CORPAK SCH ×3 (08:51→21:53)
[2018-06-28] MEDS: piperacillin/tazo 3.375gm/50ml 50 ML IV SCH (08:51)
[2018-06-28] MEDS: ferrous sulfate 300mg/5ml UD oral liquid CORPAK SCH ×2 (08:52→21:51)
[2018-06-28] MEDS: atorvastatin 10mg tablet CORPAK SCH (08:52)
[2018-06-28] MEDS: heparin, porcine 5000 units/ml vial SQ SCH ×2 (08:53→21:54)
[2018-06-28 11:00] VITALS: BP 103/58
--- NOTE | 2018-06-28 11:04 | NUR ---
Reassessment: Pt with pureed food and thin liquid diet and tolerating with no s/s of aspiration per SOFTWARE REQUIREMENTS ENGINEER 06/28. TF diet order still active however pt no longer receiving TF and just with PO diet with Corpak removed per RN. D/w RN to d/c active TF order. Documented PO intake fluctuates, 100% on 06/26 and 50/50/100% at breakfast this AM. Pt continues with HD and with restraints and a sitter per MD progress notes. [facility] 06/27. Will continue to follow and monitor need for ONS. Rec: 1. Continue pureed food with thin liquid diet per SOFTWARE REQUIREMENTS ENGINEER recs 2. Monitor need for ONS 3. Wt per rx Addendum: 06/28/18 at [address] Amended: Links added.
--- NOTE | 2018-06-28 11:11 | NUR ---
Call placed to [facility] regarding consult for dementia placement. RN stated she would pass the message along to Dr. Rider but that he was the only MD on today and had to evaluate 14 other patients
[2018-06-28 14:15] VITALS: BP 90/35
[2018-06-28 15:00] VITALS: BP 101/41
--- NOTE | 2018-06-28 15:57 | NUR ---
Orientee Medication Administration: For this medication-pass time frame, all medication were reviewed, dispensed, administered and documented per hospital policy by Judi CASTREJON. Orientee documentation: I have reviewed and agree with all interventions, assessments performed and documented by Judi CASTREJON.
--- NOTE | 2018-06-28 18:35 | NUR ---
Problems reprioritized. Patient report given, questions answered & plan of care reviewed with Hetal CASTREJON.
[2018-06-28 20:00] VITALS: BP 113/44
[2018-06-28] MEDS: QUEtiapine 25mg tablet CORPAK SCH ×2 (21:51→21:54)
[2018-06-28] MEDS: insulin glargine (Lantus) pen - multi-dose SQ SCH (22:04)
[2018-06-29] VITALS: BP 97/34
[2018-06-29] MEDS: acetaminophen 325mg tablet CORPAK SCH ×4 (03:32→20:18)
[2018-06-29] MEDS: diltiazem 30mg tablet CORPAK SCH ×4 (03:32→20:17)
[2018-06-29 03:34] VITALS: BP 121/44
[2018-06-29 05:16] LABS: BASOPHILS % (AUTO) 0.1 % (0-1); EOSINOPHILS # (AUTO) 0.6 X10'3 (0-0.9); EOSINOPHILS % (AUTO) 4.3 % (0-6); HEMATOCRIT 25.7 % (35.0-45.0); HEMOGLOBIN 8.5 g/dl (12.0-16.0); LYMPHOCYTES # (AUTO) 1.4 X10'3 (1.1-4.8); LYMPHOCYTES % (AUTO) 9.6 % (21-51); MEAN CORPUSCULAR HEMOGLOBIN 29.7 PG (27.0-31.0); MONOCYTES # (AUTO) 1.1 X10'3 (0-0.9); MONOCYTES % (AUTO) 7.6 % (2-12); NEUTROPHILS % (AUTO) 78.4 % (42-75); PLATELET COUNT 454 X10'3 (140-440); RED BLOOD COUNT 2.86 X10'6 (4.20-5.60); RED CELL DISTRIBUTION WIDTH 15.5 % (11.5-14.5)
[2018-06-29 05:33] LABS: ALANINE AMINOTRANSFERASE 16 U/L (12-78); ALBUMIN 2.1 G/DL (3.4-5.0); ALBUMIN/GLOBULIN RATIO 0.5 (1.1-1.5); ALKALINE PHOSPHATASE 97 IU/L (46-116); ANION GAP 12 (8-16); ASPARTATE AMINO TRANSFERASE 14 U/L (10-37); BILIRUBIN,TOTAL 0.4 MG/DL (0.1-1.0); BLOOD UREA NITROGEN 31 MG/DL (7-18); CALCIUM 8.4 MG/DL (8.5-10.1); CHLORIDE 97 MMOL/L (99-107); GLUCOSE 171 MG/DL (70-104); MAGNESIUM 2.1 MG/DL (1.5-2.4); PHOSPHORUS 4.9 MG/DL (2.3-4.5); POTASSIUM 4.4 MMOL/L (3.5-5.1); SODIUM 136 MMOL/L (135-145); TOTAL CARBON DIOXIDE 27.3 MMOL/L (24-32); TOTAL PROTEIN 6.3 G/DL (6.4-8.2); eGFR 8 ML/MIN
[2018-06-29 06:00] VITALS: BP 102/31
--- NOTE | 2018-06-29 06:33 | NUR ---
Patient in room PCU 3023. I have received report from JOVANNY CASTREJON and had the opportunity to ask questions and assume patient care.
[2018-06-29] MEDS: heparin, porcine 5000 units/ml vial SQ SCH ×2 (08:00→20:17)
[2018-06-29] MEDS ORDERED: heparin 1,000unit/ml 10ml vial 10 ML IV ONE (09:00)
[2018-06-29] MEDS ORDERED: epoetin 20,000 units/ml inj IV ONE (09:00)
[2018-06-29] MEDS ORDERED: heparin 1,000 units/ml 10ml inj HE ONE ×2 (09:05)
[2018-06-29] MEDS: amiodarone 200mg tablet PO SCH (09:51)
[2018-06-29] MEDS: ferrous sulfate 300mg/5ml UD oral liquid CORPAK SCH ×2 (09:51→20:17)
[2018-06-29] MEDS: lactobacillus rhamnosus 10,000 MMU CELLS/CAPSULE CORPAK SCH ×2 (09:51→20:18)
[2018-06-29] MEDS: memantine 5mg tablet PO SCH (09:51)
[2018-06-29] MEDS: atorvastatin 10mg tablet CORPAK SCH (09:55)
[2018-06-29 11:11] VITALS: BP 131/43
--- NOTE | 2018-06-29 18:32 | NUR ---
Problems reprioritized. Patient report given, questions answered & plan of care reviewed with Hetal CASTREJON.
[2018-06-29 20:00] VITALS: BP 114/44
[2018-06-29] MEDS: minoxidil 2.5mg tablet CORPAK SCH (20:18)
[2018-06-29] MEDS: carVEDilol 12.5mg tablet CORPAK SCH (20:18)
[2018-06-29] MEDS: insulin glargine (Lantus) pen - multi-dose SQ SCH (20:30)
[2018-06-29 23:54] VITALS: BP 108/38
[2018-06-30] MEDS: acetaminophen 325mg tablet CORPAK SCH ×4 (02:56→19:45)
[2018-06-30] MEDS: diltiazem 30mg tablet CORPAK SCH ×4 (02:56→19:45)
[2018-06-30 03:49] VITALS: BP 119/50
[2018-06-30 05:14] LABS: BASOPHILS % (AUTO) 0.2 % (0-1); EOSINOPHILS # (AUTO) 0.5 X10'3 (0-0.9); EOSINOPHILS % (AUTO) 3.5 % (0-6); HEMATOCRIT 29.1 % (35.0-45.0); HEMOGLOBIN 9.4 g/dl (12.0-16.0); LYMPHOCYTES # (AUTO) 1.4 X10'3 (1.1-4.8); MEAN CORPUSCULAR HEMOGLOBIN 29.5 PG (27.0-31.0); MEAN CORPUSCULAR HGB CONC 32.2 g/dL (33.0-36.5); MEAN CORPUSCULAR VOLUME 91.8 FL (78-98); MONOCYTES # (AUTO) 1.1 X10'3 (0-0.9); MONOCYTES % (AUTO) 8.4 % (2-12); NEUTROPHILS % (AUTO) 76.9 % (42-75); PLATELET COUNT 545 X10'3 (140-440); RED BLOOD COUNT 3.17 X10'6 (4.20-5.60); RED CELL DISTRIBUTION WIDTH 14.8 % (11.5-14.5)
[2018-06-30 05:32] LABS: ALANINE AMINOTRANSFERASE 16 U/L (12-78); ALBUMIN 2.3 G/DL (3.4-5.0); ALBUMIN/GLOBULIN RATIO 0.5 (1.1-1.5); ALKALINE PHOSPHATASE 107 IU/L (46-116); ANION GAP 10 (8-16); ASPARTATE AMINO TRANSFERASE 15 U/L (10-37); BILIRUBIN,TOTAL 0.4 MG/DL (0.1-1.0); BLOOD UREA NITROGEN 16 MG/DL (7-18); BUN/CREATININE RATIO 4.4 (6.6-38.0); CALCIUM 8.8 MG/DL (8.5-10.1); CHLORIDE 96 MMOL/L (99-107); CREATININE 3.66 MG/DL (0.40-0.90); GLUCOSE 161 MG/DL (70-104); POTASSIUM 4.3 MMOL/L (3.5-5.1); SODIUM 134 MMOL/L (135-145); TOTAL CARBON DIOXIDE 27.6 MMOL/L (24-32); TOTAL PROTEIN 6.8 G/DL (6.4-8.2); eGFR 12 ML/MIN
[2018-06-30 06:00] VITALS: BP 138/53
--- NOTE | 2018-06-30 06:18 | NUR ---
Patient in room PCU 3023. I have received report from Hetal CASTREJON and had the opportunity to ask questions and assume patient care.
--- NOTE | 2018-06-30 08:55 | NUR ---
NM WBC SCAN was non-diagnostic. Injected medication infiltrated into right lower leg. repeat test is neede to be diagnostic.
[2018-06-30] MEDS: ferrous sulfate 300mg/5ml UD oral liquid CORPAK SCH ×2 (09:08→20:00)
[2018-06-30] MEDS: heparin, porcine 5000 units/ml vial SQ SCH ×2 (09:09→19:44)
[2018-06-30] MEDS: atorvastatin 10mg tablet CORPAK SCH (09:09)
[2018-06-30] MEDS: carVEDilol 12.5mg tablet CORPAK SCH ×2 (09:09→19:45)
[2018-06-30] MEDS: minoxidil 2.5mg tablet CORPAK SCH ×2 (09:10→19:45)
[2018-06-30] MEDS: memantine 5mg tablet PO SCH (09:10)
[2018-06-30] MEDS: amiodarone 200mg tablet PO SCH ×2 (09:10→19:45)
[2018-06-30] MEDS: lactobacillus rhamnosus 10,000 MMU CELLS/CAPSULE CORPAK SCH ×2 (09:14→19:45)
--- NOTE | 2018-06-30 12:09 | NUR ---
Reassessment: Documented PO intake fluctuates however appears to be improving with intake of 75% this AM meeting nutrient needs. Pt now feeding herself per MERCHANDISE ASSOCIATE and MD progress notes. Pt remains significantly confused and is still getting HD per MD progress notes. [facility] 06/30. Will continue to follow. Rec: 1. Continue pureed food with thin liquid diet per MERCHANDISE ASSOCIATE recs 2. Monitor need for ONS 3. Wt per rx Addendum: 06/30/18 at [address] Amended: Links added.
[2018-06-30 13:42] VITALS: BP 137/34
[2018-06-30 15:00] VITALS: BP 129/43
[2018-06-30] MEDS: QUEtiapine 25mg tablet CORPAK SCH (17:27)
--- NOTE | 2018-06-30 18:00 | NUR ---
Patient in room PCU 3023. I have received report from LUCÍA Howard and had the opportunity to ask questions and assume patient care.
--- NOTE | 2018-06-30 18:12 | NUR ---
Problems reprioritized. Patient report given, questions answered & plan of care reviewed with Vijaya CASTREJON.
[2018-06-30] MEDS: insulin Lispro (HumaLOG) vial - multi-dose SQ SCH (19:53)
[2018-06-30] MEDS: dextrose 50%-water 50ml dispensing syringe IV PRN ×2 (21:39→22:07)
[2018-06-30] MEDS: insulin glargine (Lantus) pen - multi-dose SQ SCH (22:39)
[2018-07-01] MEDS: acetaminophen 325mg tablet CORPAK SCH ×5 (02:00→19:48)
[2018-07-01] MEDS: diltiazem 30mg tablet CORPAK SCH ×5 (02:00→19:47)
[2018-07-01 06:00] VITALS: BP 115/45
--- NOTE | 2018-07-01 06:59 | NUR ---
Problems reprioritized. Patient report given, questions answered & plan of care reviewed with LUCÍA Frye.
[2018-07-01 07:23] LABS: BASOPHILS % (AUTO) 0 % (0-1); EOSINOPHILS # (AUTO) 0.6 X10'3 (0-0.9); EOSINOPHILS % (AUTO) 5.5 % (0-6); HEMATOCRIT 28.4 % (35.0-45.0); HEMOGLOBIN 9.1 g/dl (12.0-16.0); LYMPHOCYTES # (AUTO) 1.4 X10'3 (1.1-4.8); LYMPHOCYTES % (AUTO) 12.8 % (21-51); MEAN CORPUSCULAR HEMOGLOBIN 29.1 PG (27.0-31.0); MEAN CORPUSCULAR HGB CONC 32.1 g/dL (33.0-36.5); MEAN CORPUSCULAR VOLUME 90.6 FL (78-98); NEUTROPHILS # (AUTO) 7.6 X10'3 (1.8-7.7); NEUTROPHILS % (AUTO) 72.7 % (42-75); PLATELET COUNT 519 X10'3 (140-440); RED BLOOD COUNT 3.14 X10'6 (4.20-5.60); RED CELL DISTRIBUTION WIDTH 14.5 % (11.5-14.5); WHITE BLOOD COUNT 10.6 X10'3 (4.5-11.0)
[2018-07-01] MEDS ORDERED: heparin 1,000unit/ml 10ml vial 10 ML IV ONE (08:00)
[2018-07-01] MEDS ORDERED: epoetin 20,000 units/ml inj IV ONE (08:00)
[2018-07-01] MEDS ORDERED: normal saline 1000ml 250 ML IV PRN (08:00)
[2018-07-01] MEDS ORDERED: heparin 1,000 units/ml 10ml inj HE ONE ×2 (08:00)
[2018-07-01] MEDS: ferrous sulfate 300mg/5ml UD oral liquid CORPAK SCH ×2 (08:01→19:47)
[2018-07-01] MEDS: atorvastatin 10mg tablet CORPAK SCH (08:02)
[2018-07-01] MEDS: amiodarone 200mg tablet PO SCH ×2 (08:02→19:49)
[2018-07-01] MEDS: carVEDilol 12.5mg tablet CORPAK SCH ×2 (08:02→19:49)
[2018-07-01] MEDS: memantine 5mg tablet PO SCH (08:02)
[2018-07-01] MEDS: lactobacillus rhamnosus 10,000 MMU CELLS/CAPSULE CORPAK SCH ×2 (08:02→19:49)
[2018-07-01] MEDS: minoxidil 2.5mg tablet CORPAK SCH ×2 (08:02→19:46)
[2018-07-01] MEDS: heparin, porcine 5000 units/ml vial SQ SCH ×2 (08:03→19:46)
[2018-07-01 11:00] VITALS: BP 136/49
[2018-07-01] MEDS: QUEtiapine 25mg tablet CORPAK SCH (17:34)
--- NOTE | 2018-07-01 18:45 | NUR ---
Patient in room PCU 3023. I have received report from LUCÍA Frye and had the opportunity to ask questions and assume patient care.
[2018-07-01 19:00] VITALS: BP 97/48
[2018-07-01] MEDS: insulin Lispro (HumaLOG) vial - multi-dose SQ SCH (19:55)
[2018-07-01] MEDS: insulin glargine (Lantus) pen - multi-dose SQ SCH (21:42)
[2018-07-01 23:00] VITALS: BP 108/45
[2018-07-02] MEDS: diltiazem 30mg tablet CORPAK SCH ×4 (01:41→20:10)
[2018-07-02] MEDS: acetaminophen 325mg tablet CORPAK SCH ×4 (01:41→20:10)
[2018-07-02 03:00] VITALS: BP 119/45
[2018-07-02 06:00] VITALS: BP 137/52
--- NOTE | 2018-07-02 06:20 | NUR ---
Problems reprioritized. Patient report given, questions answered & plan of care reviewed with LUCÍA Roldan.
--- NOTE | 2018-07-02 06:27 | NUR ---
Patient in room PCU 3023. I have received report from LUCÍA Lilly and had the opportunity to ask questions and assume patient care.
[2018-07-02] MEDS: lactobacillus rhamnosus 10,000 MMU CELLS/CAPSULE CORPAK SCH ×2 (08:24→20:10)
[2018-07-02] MEDS: amiodarone 200mg tablet PO SCH ×2 (08:24→20:11)
[2018-07-02] MEDS: insulin Lispro (HumaLOG) vial - multi-dose SQ SCH ×3 (08:24→19:00)
[2018-07-02] MEDS: ferrous sulfate 300mg/5ml UD oral liquid CORPAK SCH ×2 (08:24→20:09)
[2018-07-02] MEDS: atorvastatin 10mg tablet CORPAK SCH (08:25)
[2018-07-02] MEDS: heparin, porcine 5000 units/ml vial SQ SCH ×2 (08:26→20:09)
[2018-07-02] MEDS: carVEDilol 12.5mg tablet CORPAK SCH ×2 (08:26→20:10)
[2018-07-02] MEDS: minoxidil 2.5mg tablet CORPAK SCH ×2 (08:27→20:10)
[2018-07-02] MEDS: memantine 5mg tablet PO SCH (08:29)
[2018-07-02 11:30] VITALS: BP 94/40
[2018-07-02 15:00] VITALS: BP 131/44
[2018-07-02] MEDS: QUEtiapine 25mg tablet CORPAK SCH (17:24)
--- NOTE | 2018-07-02 18:10 | NUR ---
Patient in room PCU 3023. I have received report from Yuli CASTREJON and had the opportunity to ask questions and assume patient care.
--- NOTE | 2018-07-02 18:15 | NUR ---
Problems reprioritized. Patient report given, questions answered & plan of care reviewed with LUCÍA Barbosa.
[2018-07-02 19:00] VITALS: BP 142/46
[2018-07-02] MEDS ORDERED: amiodarone 200mg tablet CORPAK SCH (20:41)
[2018-07-02] MEDS ORDERED: memantine 5mg tablet CORPAK SCH (20:42)
[2018-07-02] MEDS: insulin glargine (Lantus) pen - multi-dose SQ SCH (21:13)
[2018-07-02 23:00] VITALS: BP 108/46
[2018-07-03] VITALS (7 sets, daily range): BP systolic 93–162; BP diastolic 35–53
[2018-07-03] MEDS: diltiazem 30mg tablet CORPAK SCH (02:35)
--- NOTE | 2018-07-03 06:02 | NUR ---
Patient in room PCU 3023. I have received report from Leann CASTREJON and had the opportunity to ask questions and assume patient care.
--- NOTE | 2018-07-03 06:05 | NUR ---
Patient in room PCU 3023. I have received report from Maida CASTREJON and had the opportunity to ask questions and assume patient care. Student documentation: I have reviewed and agree with all interventions, assessments performed and documented by Andriy CARDOSO. Student Medication Administration: For this medication-pass time frame, all medication were reviewed, dispensed, administered and documented per hospital policy by Aliza CARDOSO .
[2018-07-03] MEDS ORDERED: dextrose ORAL solution 15 GM/59 ML bottle PO PRN ×2 (07:13)
--- NOTE | 2018-07-03 07:14 | NUR ---
Message sent to pharmacy to change route of medications. Patient doesn't have a corpak.
[2018-07-03] MEDS: ferrous sulfate 300mg/5ml UD oral liquid PO SCH ×2 (08:24→20:07)
[2018-07-03] MEDS: carVEDilol 12.5mg tablet PO SCH ×2 (08:25→20:07)
[2018-07-03] MEDS: diltiazem 30mg tablet PO SCH ×3 (08:26→20:07)
[2018-07-03] MEDS: lactobacillus rhamnosus 10,000 MMU CELLS/CAPSULE CORPAK SCH ×2 (08:27→20:06)
[2018-07-03] MEDS: memantine 5mg tablet PO SCH (08:27)
[2018-07-03] MEDS: amiodarone 200mg tablet PO SCH ×2 (08:27→20:07)
[2018-07-03] MEDS: atorvastatin 10mg tablet PO SCH (08:27)
[2018-07-03] MEDS: acetaminophen 325mg tablet PO PRN (08:31)
[2018-07-03] MEDS: minoxidil 2.5mg tablet PO SCH ×2 (08:31→20:06)
[2018-07-03] MEDS: heparin, porcine 5000 units/ml vial SQ SCH ×2 (08:36→20:06)
[2018-07-03] MEDS: insulin Lispro (HumaLOG) vial - multi-dose SQ SCH ×3 (09:38→19:06)
--- NOTE | 2018-07-03 09:39 | NUR ---
Insulin given by SN Jimenez. 2 RN checks completed, administered under SN Jimenez profile.
--- NOTE | 2018-07-03 12:15 | NUR ---
Removed Leg brace, found wound on left lower leg. Notified Wound Nurse Kuldeep CASTREJON. Wound photographed, and photo in chart. Patient aware. Honey Med placed on wound, dressing applied.
--- NOTE | 2018-07-03 15:05 | NUR ---
reassessment: Pt PO continues to fluctuate 25-50% avg w/ confusion resolving more alert than ever today per MD note AOx4. PO has also improved today w/ 75% avg lunch. Remains HD dependent. Aluminum results elevated at 10 from labs drawn 06/27; normal 0-9. No mention in MD notes; unsure if thought to be r/t ALOC? Ensure high protein TIDWM added for additional protein/kcal needs; MD notified. Will continue to monitor. Rec: 1. Continue pureed food with thin liquid diet per MINE ENGINEERING SUPERINTENDENT recs 2. ensure high protein TIDWM 3. Wt per rx Addendum: 07/03/18 at [address] Amended: Links added.
--- NOTE | 2018-07-03 16:05 | NUR ---
Dr. Ruiz notified of patients bladder scan of 14cc. No new orders.
[2018-07-03] MEDS: QUEtiapine 25mg tablet PO SCH (17:40)
[2018-07-03] MEDS ORDERED: lactose-reduced food (Ensure High Protein) 237ml bottle PO SCH (18:00)
--- NOTE | 2018-07-03 18:02 | NUR ---
PRESSURE ULCER EDUCATION: DEFINITION: A pressure ulcer is an area of skin that breaks down when you stay in one position too long. The constant pressure against the skin reduces the blood flow to that area and the affected tissue dies. CAUSES: "Being bedridden or in a wheelchair "Fragile skin "Having a chronic condition, such as diabetes or vascular disease "Inability to move certain parts of your body without assistance "Older age "Incontinence of urine or stool SYMPTOMS: "A reddened area that DOES NOT turn white when pressed on - this can be the beginning of a pressure ulcer "A blister, deep sore or a crater - these can be advanced pressure ulcers FIRST AID: "Relieve the pressure on this area "Keep the area clean and dry "Call your primary doctor if you see any of the above symptoms "DO NOT massage the area "DO NOT use a donut shaped or ring shaped pillow- these actually interfere with the blood flow and cause complications PREVENTION: "Check for pressure ulcers everyday "Change position at least every two hours to relieve pressure "Use items that help relieve pressure- pillows, sheepskin, foam padding, and powders. "Keep skin clean and dry "Eat healthy well balanced meals "Exercise daily IF YOU SEE ANY OF THESE SYMPTOMS WHILE IN THE HOSPITAL - TELL YOUR NURSE IMMEDIATELY. IF YOU SEE ANY OF THESE SYMPTOMS WHILE AT HOME OR HAVE ANY QUESTIONS OR CONCERNS ABOUT PRESSURE ULCERS - CALL YOUR PRIMARY DOCTOR IMMEDIATELY. Addendum: 07/03/18 at 1831 by aYsmeen Goncalves RN Amended: Links added.
--- NOTE | 2018-07-03 18:22 | NUR ---
RECOMMEND: 1. Daily bathing with no rinse skin cleanser. 2. Cream/Lotion to be applied to skin after bathing. 3. Mariposa care Q shift and prn soiling followed by Barrier Cream prn redness. 4. Turn patient Q 1-2 hrs and reposition with pillows. 5. Float heels to offload pressure. 6. Loosen leg brace Q shift and check skin, pad pressure areas 7: Daily dressing to left lat calf wound: Cleanse site with normal saline and gauze then apply Medihoney and alginate, cover with hydrophylic foam dressing 8: Dietary consult Addendum: 07/03/18 at 1831 by Yasmeen Goncalves RN Amended: Links added.
[2018-07-03] MEDS: insulin glargine (Lantus) pen - multi-dose SQ SCH (21:15)
[2018-07-04 02:00] VITALS: BP 143/51
[2018-07-04] MEDS: diltiazem 30mg tablet PO SCH ×4 (02:19→19:34)
[2018-07-04] MEDS: acetaminophen 325mg tablet PO PRN ×3 (04:17→21:38)
[2018-07-04 06:00] VITALS: BP 149/49
--- NOTE | 2018-07-04 06:20 | NUR ---
Patient in room PCU 3023. I have received report from LUCÍA Corrales and had the opportunity to ask questions and assume patient care.
[2018-07-04] MEDS: memantine 5mg tablet PO SCH (07:53)
[2018-07-04] MEDS: amiodarone 200mg tablet PO SCH ×2 (07:53→19:35)
[2018-07-04] MEDS: ferrous sulfate 300mg/5ml UD oral liquid PO SCH ×2 (07:53→19:34)
[2018-07-04] MEDS: carVEDilol 12.5mg tablet PO SCH ×2 (07:54→19:34)
[2018-07-04] MEDS: atorvastatin 10mg tablet PO SCH (07:54)
[2018-07-04] MEDS: minoxidil 2.5mg tablet PO SCH ×2 (07:54→19:34)
[2018-07-04] MEDS: lactobacillus rhamnosus 10,000 MMU CELLS/CAPSULE CORPAK SCH ×2 (07:54→19:34)
[2018-07-04] MEDS: heparin, porcine 5000 units/ml vial SQ SCH ×2 (07:55→19:35)
[2018-07-04] MEDS: insulin Lispro (HumaLOG) vial - multi-dose SQ SCH ×2 (07:58→18:42)
[2018-07-04] MEDS ORDERED: epoetin 20,000 units/ml inj IV ONE (08:00)
[2018-07-04] MEDS ORDERED: normal saline 1000ml 250 ML IV PRN (08:00)
[2018-07-04] MEDS ORDERED: heparin 1,000 units/ml 10ml inj HE ONE ×2 (08:00)
[2018-07-04] MEDS ORDERED: heparin 1,000unit/ml 10ml vial 10 ML IV ONE (08:00)
[2018-07-04 11:00] VITALS: BP 91/38
[2018-07-04 12:13] LABS: BASOPHILS % (AUTO) 0.1 % (0-1); EOSINOPHILS # (AUTO) 0.5 X10'3 (0-0.9); EOSINOPHILS % (AUTO) 4.3 % (0-6); HEMATOCRIT 26.1 % (35.0-45.0); HEMOGLOBIN 8.7 g/dl (12.0-16.0); LYMPHOCYTES % (AUTO) 8.5 % (21-51); MEAN CORPUSCULAR HEMOGLOBIN 29.5 PG (27.0-31.0); MEAN CORPUSCULAR HGB CONC 33.3 g/dL (33.0-36.5); MEAN CORPUSCULAR VOLUME 88.7 FL (78-98); MEAN PLATELET VOLUME 6.9 FL (7.4-10.4); MONOCYTES % (AUTO) 8.2 % (2-12); NEUTROPHILS # (AUTO) 9.6 X10'3 (1.8-7.7); NEUTROPHILS % (AUTO) 78.9 % (42-75); PLATELET COUNT 394 X10'3 (140-440); RED BLOOD COUNT 2.94 X10'6 (4.20-5.60); RED CELL DISTRIBUTION WIDTH 15.4 % (11.5-14.5); WHITE BLOOD COUNT 12.2 X10'3 (4.5-11.0)
[2018-07-04 12:24] LABS: ALANINE AMINOTRANSFERASE 13 U/L (12-78); ALBUMIN 1.9 G/DL (3.4-5.0); ALBUMIN/GLOBULIN RATIO 0.5 (1.1-1.5); ALKALINE PHOSPHATASE 104 IU/L (46-116); ANION GAP 7 (8-16); ASPARTATE AMINO TRANSFERASE 18 U/L (10-37); BILIRUBIN,TOTAL 0.4 MG/DL (0.1-1.0); BLOOD UREA NITROGEN 16 MG/DL (7-18); BUN/CREATININE RATIO 5.3 (6.6-38.0); CALCIUM 8.2 MG/DL (8.5-10.1); CHLORIDE 99 MMOL/L (99-107); CREATININE 3.01 MG/DL (0.40-0.90); GLUCOSE 104 MG/DL (70-104); POTASSIUM 4.3 MMOL/L (3.5-5.1); SODIUM 136 MMOL/L (135-145); TOTAL CARBON DIOXIDE 29.7 MMOL/L (24-32); TOTAL PROTEIN 5.9 G/DL (6.4-8.2); eGFR 15 ML/MIN
--- NOTE | 2018-07-04 13:09 | NUR ---
pt not being covered for lunch with insulin bc of dialysis and the fact that pt has not consumed her lunch yet
--- NOTE | 2018-07-04 13:30 | NUR ---
pt did not receive Cardizem bc pt getting dialyzed at this time
[2018-07-04 15:00] VITALS: BP 104/44
--- NOTE | 2018-07-04 15:04 | NUR ---
Wound consult: Pt has new unstageable PU to L lateral calf r/t leg brace device from patella fracture. TERESITA [employer]MYOS for MVM for wound healing needs. Pt is already receiving ONS and PO has increased to 50% meals from 0-25% prior. LBM 07/02. TERESITA left message w/ RN to verify ONS order so % PO can be documented in EMR. Will continue to monitor. Rec: 1. Continue pureed food with thin liquid diet per BUTCHER SCULLION recs 2. ensure high protein TIDWM 3. MVM for wound 4. Wt per rx Addendum: 07/04/18 at [address] Amended: Links added.
--- NOTE | 2018-07-04 16:06 | NUR ---
STEVEN, RN AT BEDSIDE GIVING PT PEDICURE AND CLIPPING HER TOENAILS, WILL CONTINUE TO MONITOR
--- NOTE | 2018-07-04 18:26 | NUR ---
Problems reprioritized. Patient report given, questions answered & plan of care reviewed with LUCÍA HUYNH.
--- NOTE | 2018-07-04 18:31 | NUR ---
Patient in room U 3023. I have received report from dulce osorio and had the opportunity to ask questions and assume patient care. sitter in room patient in no distress
[2018-07-04 19:00] VITALS: BP 118/44
[2018-07-04] MEDS: QUEtiapine 25mg tablet PO SCH (19:35)
[2018-07-04] MEDS: insulin glargine (Lantus) pen - multi-dose SQ SCH (21:25)
--- NOTE | 2018-07-04 21:57 | NUR ---
PATIENT HAD YOGURT WITH BEDTIME LANTUS
[2018-07-04 23:00] VITALS: BP 125/41
[2018-07-05] VITALS (8 sets, daily range): BP systolic 93–150; BP diastolic 36–59
[2018-07-05] MEDS: diltiazem 30mg tablet PO SCH ×4 (02:00→21:58)
[2018-07-05] MEDS: acetaminophen 325mg tablet PO PRN ×2 (04:32→22:38)
[2018-07-05 05:31] LABS: BASOPHILS % (AUTO) 0.1 % (0-1); EOSINOPHILS # (AUTO) 0.4 X10'3 (0-0.9); HEMATOCRIT 28.2 % (35.0-45.0); HEMOGLOBIN 9.4 g/dl (12.0-16.0); LYMPHOCYTES # (AUTO) 1.3 X10'3 (1.1-4.8); LYMPHOCYTES % (AUTO) 14.7 % (21-51); MEAN CORPUSCULAR HEMOGLOBIN 29.7 PG (27.0-31.0); MEAN CORPUSCULAR HGB CONC 33.4 g/dL (33.0-36.5); MEAN CORPUSCULAR VOLUME 89.2 FL (78-98); MEAN PLATELET VOLUME 6.6 FL (7.4-10.4); MONOCYTES % (AUTO) 11.9 % (2-12); NEUTROPHILS # (AUTO) 5.9 X10'3 (1.8-7.7); NEUTROPHILS % (AUTO) 68.3 % (42-75); PLATELET COUNT 390 X10'3 (140-440); RED BLOOD COUNT 3.16 X10'6 (4.20-5.60); RED CELL DISTRIBUTION WIDTH 15.5 % (11.5-14.5); WHITE BLOOD COUNT 8.7 X10'3 (4.5-11.0)
[2018-07-05 05:46] LABS: ALANINE AMINOTRANSFERASE 14 U/L (12-78); ALBUMIN 2.1 G/DL (3.4-5.0); ALBUMIN/GLOBULIN RATIO 0.5 (1.1-1.5); ALKALINE PHOSPHATASE 107 IU/L (46-116); ANION GAP 9 (8-16); ASPARTATE AMINO TRANSFERASE 17 U/L (10-37); BILIRUBIN,TOTAL 0.3 MG/DL (0.1-1.0); BLOOD UREA NITROGEN 21 MG/DL (7-18); BUN/CREATININE RATIO 5.5 (6.6-38.0); CALCIUM 8.8 MG/DL (8.5-10.1); CHLORIDE 99 MMOL/L (99-107); CREATININE 3.79 MG/DL (0.40-0.90); GLUCOSE 90 MG/DL (70-104); PHOSPHORUS 3.7 MG/DL (2.3-4.5); POTASSIUM 4.7 MMOL/L (3.5-5.1); SODIUM 137 MMOL/L (135-145); TOTAL CARBON DIOXIDE 29.2 MMOL/L (24-32); TOTAL PROTEIN 6.3 G/DL (6.4-8.2); eGFR 12 ML/MIN
--- NOTE | 2018-07-05 06:41 | NUR ---
Problems reprioritized. Patient report given, questions answered & plan of care reviewed with DARY CASTREJON. PATIENT ASLEEP IN NO DISTRESS
[2018-07-05] MEDS: lactobacillus rhamnosus 10,000 MMU CELLS/CAPSULE CORPAK SCH ×2 (09:03→21:58)
[2018-07-05] MEDS: amiodarone 200mg tablet PO SCH ×2 (09:03→21:58)
[2018-07-05] MEDS: ferrous sulfate 300mg/5ml UD oral liquid PO SCH ×2 (09:03→21:58)
[2018-07-05] MEDS: minoxidil 2.5mg tablet PO SCH ×2 (09:04→21:58)
[2018-07-05] MEDS: heparin, porcine 5000 units/ml vial SQ SCH ×2 (09:04→21:56)
[2018-07-05] MEDS: memantine 5mg tablet PO SCH (09:04)
[2018-07-05] MEDS: atorvastatin 10mg tablet PO SCH (09:04)
[2018-07-05] MEDS: carVEDilol 12.5mg tablet PO SCH ×2 (09:05→21:58)
[2018-07-05] MEDS: insulin Lispro (HumaLOG) vial - multi-dose SQ SCH ×3 (09:54→18:10)
[2018-07-05] MEDS: QUEtiapine 25mg tablet PO SCH (18:09)
--- NOTE | 2018-07-05 18:15 | NUR ---
Patient in room U 3023. I have received report from LUCÍA Lemos and had the opportunity to ask questions and assume patient care. Addendum: 07/05/18 at 1921 by Cale White RN Amended: Links added.
--- NOTE | 2018-07-05 18:23 | NUR ---
Problems reprioritized. Patient report given, questions answered & plan of care reviewed with SOHAM CASTREJON. Addendum: 07/05/18 at 1824 by Aimnta Mendoza RN DENNIS CASTREJON
[2018-07-05] MEDS: insulin glargine (Lantus) pen - multi-dose SQ SCH (21:51)
[2018-07-06] VITALS (18 sets, daily range): BP systolic 102–146; BP diastolic 42–77
[2018-07-06] MEDS: diltiazem 30mg tablet PO SCH ×4 (02:00→20:38)
[2018-07-06] MEDS: acetaminophen 325mg tablet PO PRN (06:08)
--- NOTE | 2018-07-06 06:40 | NUR ---
Problems reprioritized. Patient report given, questions answered & plan of care reviewed with LUCÍA Taylor. Addendum: 07/06/18 at 0640 by Cale White RN Amended: Links added.
[2018-07-06 07:51] LABS: BASOPHILS % (AUTO) 0.2 % (0-1); EOSINOPHILS # (AUTO) 0.5 X10'3 (0-0.9); EOSINOPHILS % (AUTO) 5.3 % (0-6); HEMATOCRIT 28.8 % (35.0-45.0); HEMOGLOBIN 9.4 g/dl (12.0-16.0); LYMPHOCYTES # (AUTO) 1.3 X10'3 (1.1-4.8); LYMPHOCYTES % (AUTO) 12.8 % (21-51); MEAN CORPUSCULAR HEMOGLOBIN 28.9 PG (27.0-31.0); MEAN CORPUSCULAR HGB CONC 32.6 g/dL (33.0-36.5); MEAN CORPUSCULAR VOLUME 88.7 FL (78-98); MEAN PLATELET VOLUME 6.5 FL (7.4-10.4); MONOCYTES % (AUTO) 10.4 % (2-12); NEUTROPHILS # (AUTO) 7.1 X10'3 (1.8-7.7); NEUTROPHILS % (AUTO) 71.3 % (42-75); PLATELET COUNT 389 X10'3 (140-440); RED BLOOD COUNT 3.24 X10'6 (4.20-5.60); RED CELL DISTRIBUTION WIDTH 15.3 % (11.5-14.5)
[2018-07-06] MEDS ORDERED: heparin 1,000unit/ml 10ml vial 10 ML IV ONE (08:00)
[2018-07-06] MEDS ORDERED: heparin 1,000 units/ml 10ml inj HE ONE ×2 (08:00)
[2018-07-06] MEDS ORDERED: epoetin 20,000 units/ml inj IV ONE (08:00)
[2018-07-06] MEDS ORDERED: normal saline 1000ml 250 ML IV PRN (08:00)
[2018-07-06] MEDS: heparin, porcine 5000 units/ml vial SQ SCH ×2 (08:21→20:00)
[2018-07-06] MEDS: minoxidil 2.5mg tablet PO SCH ×2 (08:21→20:40)
[2018-07-06] MEDS: carVEDilol 12.5mg tablet PO SCH ×2 (08:21→20:39)
[2018-07-06] MEDS: amiodarone 200mg tablet PO SCH ×2 (08:21→20:39)
[2018-07-06] MEDS: ferrous sulfate 300mg/5ml UD oral liquid PO SCH ×2 (08:21→20:41)
[2018-07-06] MEDS: lactobacillus rhamnosus 10,000 MMU CELLS/CAPSULE CORPAK SCH ×2 (08:21→20:39)
[2018-07-06] MEDS: atorvastatin 10mg tablet PO SCH (08:21)
[2018-07-06] MEDS: memantine 5mg tablet PO SCH (08:21)
[2018-07-06] MEDS ORDERED: famotidine/PF 10 mg/ml inj IV ONE (15:45)
[2018-07-06] MEDS: ringers solution, lacted 1,000 ML IV SCH (16:02)
[2018-07-06] MEDS ORDERED: LIDOcaine 1% 30ml preserv. free vial ONE (16:03)
[2018-07-06] MEDS ORDERED: heparin 10,000 units/1 ML INJ ONE (16:03)
[2018-07-06] MEDS ORDERED: sevoflurane 250ml liquid IH ONE (17:06)
[2018-07-06] MEDS ORDERED: fentaNYL/PF 50MCG/1 ML 2ML syringe ONE (17:08)
[2018-07-06] MEDS ORDERED: propofol inj 20 ML IV ONE (17:08)
--- NOTE | 2018-07-06 17:14 | NUR ---
Pt had dialysis the majority of the day then went to a surgical procedure. unable to give bed bath.
[2018-07-06] MEDS ORDERED: ceFAZolin 1000mg inj ONE ×2 (17:26)
[2018-07-06] MEDS ORDERED: ePHEDrine 50MG/ML INJ. ONE (17:26)
[2018-07-06 17:30] LABS: ALANINE AMINOTRANSFERASE 15 U/L (12-78); ALBUMIN 2.2 G/DL (3.4-5.0); ALBUMIN/GLOBULIN RATIO 0.5 (1.1-1.5); ALKALINE PHOSPHATASE 110 IU/L (46-116); ANION GAP 6 (8-16); ASPARTATE AMINO TRANSFERASE 15 U/L (10-37); BILIRUBIN,TOTAL 0.3 MG/DL (0.1-1.0); BLOOD UREA NITROGEN 8 MG/DL (7-18); BUN/CREATININE RATIO 3.9 (6.6-38.0); CALCIUM 8.7 MG/DL (8.5-10.1); CHLORIDE 100 MMOL/L (99-107); CREATININE 2.03 MG/DL (0.40-0.90); GLUCOSE 108 MG/DL (70-104); POTASSIUM 4.2 MMOL/L (3.5-5.1); SODIUM 137 MMOL/L (135-145); TOTAL PROTEIN 6.7 G/DL (6.4-8.2); eGFR 24 ML/MIN
[2018-07-06 17:32] LABS: PARTIAL THROMBOPLASTIN TIME 27 SECONDS (22-32)
[2018-07-06] MEDS ORDERED: ringers solution, lacted 1,000 ML IV SCH (17:52)
[2018-07-06] MEDS ORDERED: ondansetron/PF 4mg/2ml inj IV PRN (17:55)
[2018-07-06] MEDS ORDERED: meperidine/PF 25mg/ml syringe IV PRN ×3 (17:55)
[2018-07-06] MEDS ORDERED: proCHLORperazine 10 MG/2 ml inj IV PRN (17:55)
[2018-07-06] MEDS ORDERED: morphine 4 MG/ML inj SYRINge IV PRN ×2 (17:55)
[2018-07-06] MEDS ORDERED: heparin 1,000unit/ml 10ml vial 10 ML ONE (18:17)
--- NOTE | 2018-07-06 18:34 | NUR ---
Problems reprioritized. Patient report given, questions answered & plan of care reviewed with Gera CASTREJON. Pt still at surgery at this time.
--- NOTE | 2018-07-06 19:15 | NUR ---
Received from OR via , accompanied by DR. CURIEL, Anesthesiologist and report given by Anesthesiolgist. S/P AV FISTULA RT. FOREARM PER DR. ATKINSON. PT. AWAKE, TALKING, CONFUSED, DISORIENTED, REASSURED. RESPS. EVEN & UNLABORED. RT. ARM SLING IN PLACE FROM OR. RT. FOREARM ISLAND BANDAGE INTACT W/ SMALL AMT. SANG SHADOWING PRESENT. RT. RADIAL PULSE PRESENT W/ DOPPLER. RT. HAND/FINGERS PINK, WARM W/ GOOD CAP REFILL. LT. ARM IV PATENT. LT. LEG BRACE IN PLACE FROM OR. PT. TEARFUL @ TIMES. UNABLE TO EXPRESS. REASSURED.
--- NOTE | 2018-07-06 19:30 | NUR ---
PT. REMAINS CONFUSED, DISORIENTED PRE OP. DR. CURIEL AWARE. PT. RESTLESS, PULLING @ EQUIPMENT. REASSURED.
--- NOTE | 2018-07-06 19:45 | NUR ---
MEDICATED FOR PAIN. REASSURED. PT. STATING " I DON'T KNOW WHAT'S HAPPENING". REORIENTED ATTEMPTS.
--- NOTE | 2018-07-06 20:10 | NUR ---
Report called to receiving nurseMADHU.. Transferred via BED. Belongings IN PT. ROOM. PT. REMAINS AWAKE, ALERT, CONFUSED. REASSURED. RT. FOREARM ISLAND BANDAGE INTACT, IN INCREASE IN SANG SHADOW. RT. RADIAL PULSE PRESENT W/ DOPPLER. MOVING FINGERS WELL. RT. HAND/FINGERS PINK, WARM W/ GOOD CAP REFILL. RT. ARM IN SLING. LT. LEG IN BRACE. LT. ARM IV PATENT. . Special Issues communicated to receiving nurse.
[2018-07-06] MEDS: QUEtiapine 25mg tablet PO SCH (20:40)
[2018-07-06] MEDS: insulin glargine (Lantus) pen - multi-dose SQ SCH (22:02)
[2018-07-07] MEDS: acetaminophen 325mg tablet PO PRN ×3 (00:09→20:15)
[2018-07-07 00:15] VITALS: BP 109/45
[2018-07-07] MEDS: diltiazem 30mg tablet PO SCH ×4 (02:26→20:07)
[2018-07-07 03:45] VITALS: BP 112/46
[2018-07-07 06:00] VITALS: BP 121/69
--- NOTE | 2018-07-07 07:12 | NUR ---
Patient in room PCU 3023. I have received report from Gera CASTREJON and had the opportunity to ask questions and assume patient care.
[2018-07-07] MEDS: ferrous sulfate 300mg/5ml UD oral liquid PO SCH ×2 (08:17→20:15)
[2018-07-07] MEDS: minoxidil 2.5mg tablet PO SCH ×2 (08:18→20:09)
[2018-07-07] MEDS: amiodarone 200mg tablet PO SCH ×2 (08:18→20:07)
[2018-07-07] MEDS: memantine 5mg tablet PO SCH (08:18)
[2018-07-07] MEDS: lactobacillus rhamnosus 10,000 MMU CELLS/CAPSULE CORPAK SCH ×2 (08:18→20:07)
[2018-07-07] MEDS: heparin, porcine 5000 units/ml vial SQ SCH ×2 (08:19→20:09)
[2018-07-07] MEDS: atorvastatin 10mg tablet PO SCH (08:19)
[2018-07-07] MEDS: carVEDilol 12.5mg tablet PO SCH ×2 (08:19→20:07)
[2018-07-07] MEDS: ringers solution, lacted 1,000 ML IV SCH (11:45)
[2018-07-07 15:00] VITALS: BP 111/51
--- NOTE | 2018-07-07 15:42 | NUR ---
Reassessment: Pt s/p fistula placement 07/06 per MD progress notes. Documented PO intake seems to have improved with recent average 75% likely meeting nutrient needs. Still no documented intake of ONS, d/w RN who states she is unsure if pt received ONS. D/w dietary who confirmed that pt has been receiving Ensure High Protein TID. LBM 07/06. Will continue to follow. Rec: 1. Continue pureed food with thin liquid diet per BULK PICKER recs 2. ensure high protein TIDWM 3. MVM for wound 4. Wt per rx Addendum: 07/07/18 at [address] Amended: Links added.
[2018-07-07] MEDS: QUEtiapine 25mg tablet PO SCH (17:40)
[2018-07-07 18:00] VITALS: BP 152/51
--- NOTE | 2018-07-07 18:37 | NUR ---
Problems reprioritized. Patient report given, questions answered & plan of care reviewed with Tamy CASTREJON.
[2018-07-07] MEDS: insulin Lispro (HumaLOG) vial - multi-dose SQ SCH (18:58)
[2018-07-07] MEDS: insulin glargine (Lantus) pen - multi-dose SQ SCH (21:57)
--- NOTE | 2018-07-07 22:00 | NUR ---
patient refused to have their vital signs
[2018-07-08] VITALS (7 sets, daily range): BP systolic 109–134; BP diastolic 36–99
[2018-07-08] MEDS: diltiazem 30mg tablet PO SCH ×4 (01:41→21:03)
--- NOTE | 2018-07-08 03:04 | NUR ---
Reviewed and agree with SRN assessment findings.
[2018-07-08] MEDS: acetaminophen 325mg tablet PO PRN ×2 (04:19→13:43)
--- NOTE | 2018-07-08 06:07 | NUR ---
Problems reprioritized. Patient report given, questions answered & plan of care reviewed with LUCÍA Howard.
--- NOTE | 2018-07-08 06:40 | NUR ---
Patient in room PCU 3023. I have received report from Tamy CASTREJON and had the opportunity to ask questions and assume patient care.
[2018-07-08] MEDS: ringers solution, lacted 1,000 ML IV SCH (06:51)
[2018-07-08 07:11] LABS: HEMATOCRIT 25.9 % (35.0-45.0); HEMOGLOBIN 8.5 g/dl (12.0-16.0); MEAN CORPUSCULAR HEMOGLOBIN 29.7 PG (27.0-31.0); MEAN CORPUSCULAR VOLUME 90.1 FL (78-98); MEAN PLATELET VOLUME 6.8 FL (7.4-10.4); PLATELET COUNT 336 X10'3 (140-440); RED BLOOD COUNT 2.87 X10'6 (4.20-5.60); RED CELL DISTRIBUTION WIDTH 15.4 % (11.5-14.5); WHITE BLOOD COUNT 10.4 X10'3 (4.5-11.0)
--- NOTE | 2018-07-08 07:11 | NUR ---
Pt had a bed bath, preethi care and lotion applied 07/07/18 by Saida ZIMMERMAN at 1100. Please note.
[2018-07-08] MEDS: heparin, porcine 5000 units/ml vial SQ SCH ×2 (07:57→21:04)
[2018-07-08] MEDS: ferrous sulfate 300mg/5ml UD oral liquid PO SCH ×2 (07:57→21:04)
[2018-07-08] MEDS: atorvastatin 10mg tablet PO SCH (07:58)
[2018-07-08] MEDS: amiodarone 200mg tablet PO SCH ×2 (07:58→21:03)
[2018-07-08] MEDS: memantine 5mg tablet PO SCH (07:58)
[2018-07-08] MEDS: carVEDilol 12.5mg tablet PO SCH ×2 (07:58→21:03)
[2018-07-08] MEDS: minoxidil 2.5mg tablet PO SCH ×2 (07:58→21:04)
[2018-07-08] MEDS: lactobacillus rhamnosus 10,000 MMU CELLS/CAPSULE CORPAK SCH ×2 (07:58→21:03)
[2018-07-08] MEDS ORDERED: epoetin 20,000 units/ml inj IV ONE (08:00)
[2018-07-08] MEDS ORDERED: heparin 1,000 units/ml 10ml inj HE ONE ×2 (08:00)
[2018-07-08] MEDS ORDERED: normal saline 1000ml 250 ML IV PRN (08:00)
[2018-07-08] MEDS ORDERED: heparin 1,000unit/ml 10ml vial 10 ML IV ONE (08:00)
--- NOTE | 2018-07-08 08:09 | NUR ---
Bedside swallow eval of solid food. Pt ate milka crackers without any issues.
[2018-07-08 11:11] LABS: HEP B CORE AB, TOT Negative (Negative)
[2018-07-08] MEDS: QUEtiapine 25mg tablet PO SCH (17:27)
--- NOTE | 2018-07-08 18:29 | NUR ---
Patient in room PCU 3023. I have received report from Lee CASTREJON and had the opportunity to ask questions and assume patient care.
--- NOTE | 2018-07-08 18:34 | NUR ---
Problems reprioritized. Patient report given, questions answered & plan of care reviewed with Lucy CASTREJON.
[2018-07-08] MEDS: insulin Lispro (HumaLOG) vial - multi-dose SQ SCH (19:08)
[2018-07-08] MEDS: insulin glargine (Lantus) pen - multi-dose SQ SCH (21:12)
[2018-07-09 02:00] VITALS: BP 144/52
[2018-07-09] MEDS: diltiazem 30mg tablet PO SCH ×4 (02:21→20:22)
[2018-07-09] MEDS: ringers solution, lacted 1,000 ML IV SCH ×2 (02:49→23:45)
[2018-07-09] MEDS: acetaminophen 325mg tablet PO PRN ×2 (04:09→08:45)
--- NOTE | 2018-07-09 06:17 | NUR ---
Problems reprioritized. Patient report given, questions answered & plan of care reviewed with Neema CASTREJON.
[2018-07-09] MEDS: carVEDilol 12.5mg tablet PO SCH ×2 (08:39→20:22)
[2018-07-09] MEDS: amiodarone 200mg tablet PO SCH ×2 (08:39→20:22)
[2018-07-09] MEDS: lactobacillus rhamnosus 10,000 MMU CELLS/CAPSULE CORPAK SCH ×2 (08:39→20:22)
[2018-07-09] MEDS: ferrous sulfate 300mg/5ml UD oral liquid PO SCH ×2 (08:39→20:23)
[2018-07-09] MEDS: memantine 5mg tablet PO SCH (08:39)
[2018-07-09] MEDS: atorvastatin 10mg tablet PO SCH (08:39)
[2018-07-09] MEDS: minoxidil 2.5mg tablet PO SCH ×2 (08:40→20:22)
[2018-07-09] MEDS: heparin, porcine 5000 units/ml vial SQ SCH ×2 (08:41→20:23)
[2018-07-09] MEDS: insulin Lispro (HumaLOG) vial - multi-dose SQ SCH ×2 (08:50→14:13)
[2018-07-09] MEDS: HYDROcodone/acetaminophen 5mg/325mg tablet PO PRN ×2 (10:05→15:59)
[2018-07-09 11:00] VITALS: BP 124/48
--- NOTE | 2018-07-09 11:45 | NUR ---
Reassessment: Pt PO 50% avg renal meals on HD remains AOx1. TERESITA d/w RN for basic chem panel per MD approval given pt on HD w/ last electrolytes taken 07/06. Pt advanced to renal diet though [facility] 07/04 rec pureed/thin. New BSS ordered; will monitor for diet advancement per [employer] recs given pt has no teeth. LBM 07/05. Will continue to monitor. Rec: 1. advance to pureed food with thin liquid diet per [facility] recs 2. ensure high protein TIDWM 3. MVM for wound 4. Wt per rx Addendum: 07/09/18 at [address] Amended: Links added.
[2018-07-09 15:00] VITALS: BP_SYST 113; BP_SYST 132; BP_DIAS 51; BP_DIAS 73
[2018-07-09 18:00] VITALS: BP 149/53
[2018-07-09] MEDS: QUEtiapine 25mg tablet PO SCH (20:23)
[2018-07-09] MEDS: insulin glargine (Lantus) pen - multi-dose SQ SCH (20:34)
[2018-07-09 22:00] VITALS: BP 129/47
[2018-07-10 02:00] VITALS: BP 131/51
[2018-07-10] MEDS: diltiazem 30mg tablet PO SCH ×5 (02:00→20:37)
[2018-07-10 06:00] VITALS: BP 151/46
[2018-07-10] MEDS: lactobacillus rhamnosus 10,000 MMU CELLS/CAPSULE CORPAK SCH ×2 (07:39→20:37)
[2018-07-10] MEDS: memantine 5mg tablet PO SCH (07:39)
[2018-07-10] MEDS: atorvastatin 10mg tablet PO SCH (07:39)
[2018-07-10] MEDS: minoxidil 2.5mg tablet PO SCH ×2 (07:39→20:37)
[2018-07-10] MEDS: carVEDilol 12.5mg tablet PO SCH ×2 (07:40→20:37)
[2018-07-10] MEDS: amiodarone 200mg tablet PO SCH ×2 (07:40→20:37)
[2018-07-10] MEDS: ferrous sulfate 300mg/5ml UD oral liquid PO SCH ×2 (07:41→20:37)
[2018-07-10] MEDS: HYDROcodone/acetaminophen 5mg/325mg tablet PO PRN ×3 (07:41→20:38)
[2018-07-10] MEDS: heparin, porcine 5000 units/ml vial SQ SCH ×2 (07:42→20:37)
[2018-07-10] MEDS: insulin Lispro (HumaLOG) vial - multi-dose SQ SCH ×2 (09:08→13:33)
[2018-07-10 11:00] VITALS: BP 97/36
[2018-07-10 15:00] VITALS: BP 125/43
[2018-07-10 18:00] VITALS: BP 155/49
--- NOTE | 2018-07-10 18:56 | NUR ---
Patient in room [facility] 3023. I have received report from LUCÍA Bethea and had the opportunity to ask questions and assume patient care. Addendum: 07/10/18 at 1857 by Tamela Lowe RN Amended: Links added.
[2018-07-10] MEDS: ringers solution, lacted 1,000 ML IV SCH (19:10)
[2018-07-10] MEDS: insulin glargine (Lantus) pen - multi-dose SQ SCH (20:35)
[2018-07-10] MEDS: QUEtiapine 25mg tablet PO SCH (20:37)
[2018-07-10 22:00] VITALS: BP 157/52
[2018-07-11] MEDS: diltiazem 30mg tablet PO SCH ×3 (02:00→14:34)
[2018-07-11 02:05] VITALS: BP 137/48
[2018-07-11] MEDS: HYDROcodone/acetaminophen 5mg/325mg tablet PO PRN (03:17)
[2018-07-11 06:00] VITALS: BP 164/51
--- NOTE | 2018-07-11 06:29 | NUR ---
Problems reprioritized. Patient report given, questions answered & plan of care reviewed with LUCÍA Rainey and SN Michelle. Addendum: 07/11/18 at 0630 by Tamela Lowe RN Amended: Links added.
[2018-07-11 07:09] LABS: BASOPHILS % (AUTO) 0.1 % (0-1); EOSINOPHILS # (AUTO) 0.6 X10'3 (0-0.9); EOSINOPHILS % (AUTO) 4.9 % (0-6); HEMATOCRIT 26.8 % (35.0-45.0); HEMOGLOBIN 8.8 g/dl (12.0-16.0); LYMPHOCYTES # (AUTO) 1.3 X10'3 (1.1-4.8); LYMPHOCYTES % (AUTO) 10.9 % (21-51); MEAN CORPUSCULAR HEMOGLOBIN 29.1 PG (27.0-31.0); MEAN CORPUSCULAR HGB CONC 32.9 g/dL (33.0-36.5); MEAN CORPUSCULAR VOLUME 88.3 FL (78-98); MEAN PLATELET VOLUME 6.9 FL (7.4-10.4); MONOCYTES % (AUTO) 8.5 % (2-12); NEUTROPHILS # (AUTO) 8.7 X10'3 (1.8-7.7); NEUTROPHILS % (AUTO) 75.6 % (42-75); PLATELET COUNT 367 X10'3 (140-440); RED BLOOD COUNT 3.03 X10'6 (4.20-5.60); RED CELL DISTRIBUTION WIDTH 15.5 % (11.5-14.5); WHITE BLOOD COUNT 11.6 X10'3 (4.5-11.0)
[2018-07-11] MEDS ORDERED: epoetin 20,000 units/ml inj IV ONE (08:00)
[2018-07-11] MEDS ORDERED: normal saline 1000ml 250 ML IV PRN (08:00)
[2018-07-11] MEDS ORDERED: heparin 1,000 units/ml 10ml inj HE ONE ×2 (08:00)
[2018-07-11] MEDS ORDERED: heparin 1,000unit/ml 10ml vial 10 ML IV ONE (08:00)
[2018-07-11] MEDS: atorvastatin 10mg tablet PO SCH (08:13)
[2018-07-11] MEDS: carVEDilol 12.5mg tablet PO SCH (08:13)
[2018-07-11] MEDS: lactobacillus rhamnosus 10,000 MMU CELLS/CAPSULE CORPAK SCH (08:13)
[2018-07-11] MEDS: memantine 5mg tablet PO SCH (08:13)
[2018-07-11] MEDS: amiodarone 200mg tablet PO SCH (08:14)
[2018-07-11] MEDS: minoxidil 2.5mg tablet PO SCH (08:15)
[2018-07-11] MEDS: ferrous sulfate 300mg/5ml UD oral liquid PO SCH (08:15)
[2018-07-11] MEDS: heparin, porcine 5000 units/ml vial SQ SCH (08:16)
[2018-07-11] MEDS: insulin Lispro (HumaLOG) vial - multi-dose SQ SCH (09:06)
[2018-07-11 11:00] VITALS: BP 109/51
[2018-07-11 15:00] VITALS: BP 117/93
[2018-07-11] MEDS ORDERED: AMIO200T40 PO (15:14)
[2018-07-11] MEDS ORDERED: MEMA5TAB40 PO (15:14)
[2018-07-11] MEDS ORDERED: FER300L PO (15:14)
--- NOTE | 2018-07-11 16:57 | NUR ---
Pt given DC instructions. RX delivered by [facility] bedside. IV removed tip intact. Pt belongings retained by patient. Pt assisted to POV in WC by hospital staff.
== END 2018-07-11 16:50 | disposition home health service (06) | DRG 853 ==
LOC: ER 07:09 → ED HOLD 11:54 → PCU 3S 06-08 07:10 → CMPBEDREQ 06-12 19:36 → PCU 3S 06-27 05:13
PROVIDERS: ADMIT Family Medicine; ATTEND Family Medicine
PROC: 2W38X1Z Immobilization of Right Upper Extremity using Splint (ICD-10-PCS; 2018-06-07)
PROC: 30233N1 Transfusion of Nonautologous Red Blood Cells into Peripheral Vein, Percutaneous Approach (ICD-10-PCS; principal; 2018-06-09)
PROC: 0JH63XZ Insertion of Tunneled Vascular Access Device into Chest Subcutaneous Tissue and Fascia, Percutaneous Approach (ICD-10-PCS; 2018-06-09)
PROC: 02H633Z Insertion of Infusion Device into Right Atrium, Percutaneous Approach (ICD-10-PCS; 2018-06-09)
PROC: B2141ZZ Fluoroscopy of Right Heart using Low Osmolar Contrast (ICD-10-PCS; 2018-06-09)
PROC: B244ZZZ Ultrasonography of Right Heart (ICD-10-PCS; 2018-06-09)
PROC: 5A1D70Z Performance of Urinary Filtration, Intermittent, Less than 6 Hours Per Day (ICD-10-PCS; 2018-06-09)
PROC: 5A1D70Z Performance of Urinary Filtration, Intermittent, Less than 6 Hours Per Day (ICD-10-PCS; 2018-06-10)
PROC: 0JH63XZ Insertion of Tunneled Vascular Access Device into Chest Subcutaneous Tissue and Fascia, Percutaneous Approach (ICD-10-PCS; 2018-06-13)
PROC: 02HV33Z Insertion of Infusion Device into Superior Vena Cava, Percutaneous Approach (ICD-10-PCS; 2018-06-13)
PROC: B5181ZA Fluoroscopy of Superior Vena Cava using Low Osmolar Contrast, Guidance (ICD-10-PCS; 2018-06-13)
PROC: B548ZZA Ultrasonography of Superior Vena Cava, Guidance (ICD-10-PCS; 2018-06-13)
PROC: 5A1D70Z Performance of Urinary Filtration, Intermittent, Less than 6 Hours Per Day (ICD-10-PCS; 2018-06-13)
PROC: 5A1D70Z Performance of Urinary Filtration, Intermittent, Less than 6 Hours Per Day (ICD-10-PCS; 2018-06-15)
PROC: 5A1D70Z Performance of Urinary Filtration, Intermittent, Less than 6 Hours Per Day (ICD-10-PCS; 2018-06-17)
PROC: 30233N1 Transfusion of Nonautologous Red Blood Cells into Peripheral Vein, Percutaneous Approach (ICD-10-PCS; 2018-06-18)
PROC: 5A1D70Z Performance of Urinary Filtration, Intermittent, Less than 6 Hours Per Day (ICD-10-PCS; 2018-06-20)
PROC: 5A1D70Z Performance of Urinary Filtration, Intermittent, Less than 6 Hours Per Day (ICD-10-PCS; 2018-06-21)
PROC: 5A1D70Z Performance of Urinary Filtration, Intermittent, Less than 6 Hours Per Day (ICD-10-PCS; 2018-06-23)
PROC: 5A1D70Z Performance of Urinary Filtration, Intermittent, Less than 6 Hours Per Day (ICD-10-PCS; 2018-06-25)
PROC: 5A1D70Z Performance of Urinary Filtration, Intermittent, Less than 6 Hours Per Day (ICD-10-PCS; 2018-06-27)
PROC: 5A1D70Z Performance of Urinary Filtration, Intermittent, Less than 6 Hours Per Day (ICD-10-PCS; 2018-06-29)
PROC: C713DZZ Planar Nuclear Medicine Imaging of Blood using Indium 111 (In-111) (ICD-10-PCS; 2018-06-30)
PROC: 5A1D70Z Performance of Urinary Filtration, Intermittent, Less than 6 Hours Per Day (ICD-10-PCS; 2018-07-01)
PROC: 5A1D70Z Performance of Urinary Filtration, Intermittent, Less than 6 Hours Per Day (ICD-10-PCS; 2018-07-04)
PROC: 031B0ZF Bypass Right Radial Artery to Lower Arm Vein, Open Approach (ICD-10-PCS; 2018-07-06)
PROC: 5A1D70Z Performance of Urinary Filtration, Intermittent, Less than 6 Hours Per Day (ICD-10-PCS; 2018-07-06)
PROC: 5A1D70Z Performance of Urinary Filtration, Intermittent, Less than 6 Hours Per Day (ICD-10-PCS; 2018-07-08)
PROC: 5A1D70Z Performance of Urinary Filtration, Intermittent, Less than 6 Hours Per Day (ICD-10-PCS; 2018-07-11)
DX: A41.9 Sepsis, unspecified organism (principal); G93.41 Metabolic encephalopathy; E43 Unspecified severe protein-calorie malnutrition; N18.6 End stage renal disease; S42.91XA Fracture of right shoulder girdle, part unspecified, initial encounter for closed fracture; S82.001A Unspecified fracture of right patella, initial encounter for closed fracture; S82.002A Unspecified fracture of left patella, initial encounter for closed fracture; I12.0 Hypertensive chronic kidney disease with stage 5 chronic kidney disease or end stage renal disease; N17.9 Acute kidney failure, unspecified; N39.0 Urinary tract infection, site not specified; E87.5 Hyperkalemia; E11.21 Type 2 diabetes mellitus with diabetic nephropathy; E11.22 Type 2 diabetes mellitus with diabetic chronic kidney disease; I48.91 Unspecified atrial fibrillation; K52.9 Noninfective gastroenteritis and colitis, unspecified; W01.0XXA Fall on same level from slipping, tripping and stumbling without subsequent striking against object, initial encounter; B96.1 Klebsiella pneumoniae [K. pneumoniae] as the cause of diseases classified elsewhere; F17.200 Nicotine dependence, unspecified, uncomplicated; D63.8 Anemia in other chronic diseases classified elsewhere; E78.00 Pure hypercholesterolemia, unspecified; E78.5 Hyperlipidemia, unspecified; F41.9 Anxiety disorder, unspecified; J44.9 Chronic obstructive pulmonary disease, unspecified; R13.10 Dysphagia, unspecified; Z99.2 Dependence on renal dialysis; Z80.41 Family history of malignant neoplasm of ovary; Z80.3 Family history of malignant neoplasm of breast; Z80.0 Family history of malignant neoplasm of digestive organs; Z88.2 Allergy status to sulfonamides; Z78.1 Physical restraint status; Z79.899 Other long term (current) drug therapy; Z68.23 Body mass index [BMI] 23.0-23.9, adult; Z90.49 Acquired absence of other specified parts of digestive tract; Y93.89 Activity, other specified; Y92.090 Kitchen in other non-institutional residence as the place of occurrence of the external cause; Y99.8 Other external cause status; Z87.440 Personal history of urinary (tract) infections; Z87.441 Personal history of nephrotic syndrome; Z82.0 Family history of epilepsy and other diseases of the nervous system; Z79.4 Long term (current) use of insulin
CPT/HCPCS: 36415; 36558; 36600; 70450; 70544; 70551; 71045; 73020; 73030; 73560; 73564; 74018; 74176; 76775; 76937; 77001; 78806; 80048; 80053; 80202; 80305; 80320; 81001; 82140; 82272; 82550; 82728; 82803; 82948; 83036; 83540; 83550; 83605; 83615; 83690; 83735; 84100; 84132; 84134; 84145; 84439; 84443; 84484; 85018; 85025; 85027; 85045; 85610; 85730; 86704; 86706; 86870; 86885; 86900; 86901; 86902; 86905; 86920; 86922; 87040; 87070; 87075; 87077; 87088; 87186; 87324; 87340; 87449; 89055; 90935; 92616; 93005; 93306; 93931; 93971; 94640; 94760; 96374; 96375; 97110; 97116; 97161; 97530; 99285; A4620; A7000; A9270; A9570; C1750; C1894; G0257; G0378; J0282; J0360; J0610; J0690; J0692; J0696; J0885; J1170; J1644; J1815; J2001; J2060; J2150; J2175; J2250; J2270; J2405; J2543; J2704; J2916; J3010; J3370; J3480; J3486; J3490; J7030; J7040; J7120; J7611; P9016; P9045; P9047; Q9963

== ENCOUNTER 2018-07-18 22:58 | Emergency (ER) | payer MEDICARE, MEDICAID ==
[~2018-07-18] VITALS: Ht 162.6 cm; Wt 67.3 kg
[~2018-07-18 22:58] MED LIST changes: +AMIO200T40 PO; +FER300L PO; +MEMA5TAB40 PO; -[UNRECOGNIZED DRUG - CODE]
[2018-07-19 00:33] VITALS: BP 176/87
== END 2018-07-19 00:35 | disposition home or self-care (01) ==
LOC: ER 22:58
DX: F41.9 Anxiety disorder, unspecified (principal); F32.9 Major depressive disorder, single episode, unspecified; E78.00 Pure hypercholesterolemia, unspecified; I10 Essential (primary) hypertension; E11.9 Type 2 diabetes mellitus without complications; Z88.2 Allergy status to sulfonamides; Z79.899 Other long term (current) drug therapy; Z87.440 Personal history of urinary (tract) infections
CPT/HCPCS: 99284